=== PATIENT | male | born 1970 | race African-American/Black ===

== ENCOUNTER 2018-04-16 19:40 | Emergency (ER) | payer MEDICAID ==
[~2018-04-16] VITALS: Ht 165.1 cm; Wt 61.4 kg
[~2018-04-16 19:40] MED LIST: QUET200T PO
[2018-04-16 20:08] LABS: BASOPHILS % (AUTO) 0.4 % (0.0-2.0); EOSINOPHILS % (AUTO) 1.1 % (1.0-6.0); HEMATOCRIT 38.5 % (41-53); HEMOGLOBIN 12.9 g/dL (13.5-17.5); LYMPHOCYTES # (AUTO) 1.9 K/uL (1.0-4.8); LYMPHOCYTES % (AUTO) 40.8 % (22.0-44.0); MEAN CORPUSCULAR HEMOGLOBIN 28.8 pg (26.0-34.0); MEAN CORPUSCULAR HGB CONC 33.5 G/dL (31.0-37.0); MEAN CORPUSCULAR VOLUME 86 fL (80-100); MONOCYTES # (AUTO) 0.3 K/uL (0.1-1.0); MONOCYTES % (AUTO) 7.2 % (2.0-9.0); NEUTROPHILS # (AUTO) 2.4 K/uL (1.8-7.7); NEUTROPHILS % (AUTO) 50.5 % (40.0-70.0); PLATELET COUNT (AUTO) 282 K/uL (150-450); RED BLOOD CELL COUNT(AUTO) 4.47 MIL/uL (4.50-5.90); RED CELL DISTRIBUTION WIDTH 13.8 % (11.5-14.5)
[2018-04-16 20:16] LABS: ANION GAP 5 mmol/L (8-16); CALCIUM, TOTAL 9.2 mg/dL (8.8-10.5); CARBON DIOXIDE 34 mmol/L (22-29); CHLORIDE 105 mmol/L (98-107); CREATININE 0.64 mg/dL (0.60-1.30); GLOMERULAR FILTR. RATE CALC > 60 mL/min (>60); GLUCOSE,RANDOM 101 mg/dL (70-110); POTASSIUM 3.8 mmol/L (3.5-5.1); SODIUM SERUM 144 mmol/L (136-145); UREA NITROGEN, BLOOD 20 mg/dL (7-18)
[2018-04-16 20:22] LABS: ALANINE AMINOTRANSFERASE 31 U/L (12-78); ALBUMIN 3.7 g/dL (3.4-5.0); ALKALINE PHOSPHATASE 101 U/L (46-116); ASPARTATE AMINOTRANSFERASE 25 U/L (15-37); BILIRUBIN,TOTAL 0.1 mg/dL (0.1-1.0); TOTAL PROTEIN, SERUM 7.9 g/dL (6.4-8.2)
[2018-04-16 20:56] LABS: AMPHET/METH SCREEN,URINE NEGATIVE (NEGATIVE); BARBITURATE SCREEN, URINE NEGATIVE (NEGATIVE); BENZODIAZEPINES SCREEN,URINE NEGATIVE (NEGATIVE); CANNABINOID SCREEN,URINE NEGATIVE (NEGATIVE); COCAINE SCREEN,URINE NEGATIVE (NEGATIVE); METHADONE SCREEN, URINE NEGATIVE (NEGATIVE); OPIATE SCREEN,URINE NEGATIVE (NEGATIVE); PHENCYCLIDINE SCREEN,URINE NEGATIVE (NEGATIVE)
[2018-04-17] MEDS ORDERED: LORazepam 2 MG/ML VIAL IM ONE (00:30)
[2018-04-17] MEDS ORDERED: HALOPERIDOL LACTATE 5 MG/ML VIAL IM ONE (00:30)
[2018-04-17 06:45] VITALS: BP 121/73
[2018-04-17 08:51] LABS: GLUCOSE,POINT OF CARE 114 MG/DL (70-110)
== END 2018-04-17 07:00 | disposition left against medical advice (07) ==
LOC: EMS 19:43
DX: F20.0 Paranoid schizophrenia (principal); F15.10 Other stimulant abuse, uncomplicated; F32.9 Major depressive disorder, single episode, unspecified; F17.210 Nicotine dependence, cigarettes, uncomplicated; F12.90 Cannabis use, unspecified, uncomplicated; F19.90 Other psychoactive substance use, unspecified, uncomplicated; Z59.0 Homelessness; Z88.8 Allergy status to other drugs, medicaments and biological substances
CPT/HCPCS: 36415; 80053; 80307; 82962; 85025; 96372; 99284; 99406; G0480; J2060

== ENCOUNTER 2018-08-07 12:51 | Inpatient (IN) | payer MEDICAID, OTHER ==
[~2018-08-07] VITALS: Ht 165.1 cm; Wt 71.8 kg
[2018-08-07] MEDS ORDERED: OLAN10TA3 PO (13:25)
[2018-08-07 13:46] LABS: BASOPHILS % (AUTO) 0.3 % (0.0-2.0); HEMATOCRIT 38.5 % (41-53); HEMOGLOBIN 12.8 g/dL (13.5-17.5); LYMPHOCYTES # (AUTO) 1.4 K/uL (1.0-4.8); LYMPHOCYTES % (AUTO) 42.6 % (22.0-44.0); MEAN CORPUSCULAR HEMOGLOBIN 28.6 pg (26.0-34.0); MEAN CORPUSCULAR HGB CONC 33.3 G/dL (31.0-37.0); MEAN CORPUSCULAR VOLUME 86 fL (80-100); MONOCYTES # (AUTO) 0.3 K/uL (0.1-1.0); MONOCYTES % (AUTO) 8.9 % (2.0-9.0); NEUTROPHILS # (AUTO) 1.5 K/uL (1.8-7.7); NEUTROPHILS % (AUTO) 46.2 % (40.0-70.0); PLATELET COUNT (AUTO) 243 K/uL (150-450); RED BLOOD CELL COUNT(AUTO) 4.47 MIL/uL (4.50-5.90)
[2018-08-07 13:55] LABS: ANION GAP 7 mmol/L (8-16); CALCIUM, TOTAL 8.7 mg/dL (8.8-10.5); CARBON DIOXIDE 29 mmol/L (22-29); CHLORIDE 108 mmol/L (98-107); CREATININE 0.99 mg/dL (0.60-1.30); GLOMERULAR FILTR. RATE CALC > 60 mL/min (>60); GLUCOSE,RANDOM 138 mg/dL (70-110); POTASSIUM 4.1 mmol/L (3.5-5.1); SODIUM SERUM 144 mmol/L (136-145); UREA NITROGEN, BLOOD 17 mg/dL (7-18)
[2018-08-07 14:01] LABS: ALANINE AMINOTRANSFERASE 24 U/L (12-78); ALBUMIN 3.6 g/dL (3.4-5.0); ALKALINE PHOSPHATASE 102 U/L (46-116); ASPARTATE AMINOTRANSFERASE 19 U/L (15-37); BILIRUBIN,TOTAL 0.3 mg/dL (0.1-1.0); TOTAL PROTEIN, SERUM 7.7 g/dL (6.4-8.2)
[2018-08-07] MEDS ORDERED: ZOLPIDEM TARTRATE 10 MG TABLET PO PRN (15:00)
[2018-08-07] MEDS: LORazepam 2 MG TABLET PO PRN (17:13)
[2018-08-07 17:32] VITALS: BP 128/75
[2018-08-07] MEDS: OLANZapine 7.5 MG TABLET PO SCH (20:22)
[2018-08-08 06:36] LABS: CHOL/HDL RATIO 2.9 (4.2-7.3); FREE T4 (FREE THYROXINE) 0.95 ng/dL (0.76-1.46); THYROID STIMULATING HORMONE 0.48 uIU/mL (0.36-3.74)
[2018-08-08 08:00] VITALS: BP 137/66
[2018-08-08] MEDS ORDERED: CloNIDine HCL 0.1 MG TABLET PO PRN (10:00)
[2018-08-08] MEDS ORDERED: IBUPROFEN 600 MG TABLET PO PRN (10:00)
[2018-08-08] MEDS ORDERED: PETROLATUM,WHITE 28 GM JELLY TP PRN (10:00)
[2018-08-08] MEDS ORDERED: BACITRACIN 28.4 GM OINTMENT TP PRN (10:00)
[2018-08-08] MEDS ORDERED: ONDANSETRON HCL 4 MG TABLET PO PRN (10:00)
[2018-08-08] MEDS ORDERED: MAG HYDROX/AL HYDROX/SIMETH ES 30 ML SUSPENSION UDCUP PO PRN (10:00)
[2018-08-08] MEDS ORDERED: MAGNESIUM HYDROXIDE SUSPENSION 30 ML UDCUP PO PRN (10:00)
[2018-08-08] MEDS ORDERED: ACETAMINOPHEN 325 MG TABLET PO PRN (10:00)
[2018-08-08] MEDS ORDERED: LOPERAMIDE HCL 2 MG CAPSULE PO PRN (10:00)
[2018-08-08] MEDS ORDERED: BENZOCAINE/MENTHOL LOZENGE MM PRN (10:00)
[2018-08-08] MEDS ORDERED: ALBUTEROL SULFATE HFA 90 MCG/PUFF 8 GM INHALER IH PRN (10:00)
[2018-08-08] MEDS: OLANZapine 7.5 MG TABLET PO SCH (20:33)
[2018-08-09] MEDS: DOCUSATE SODIUM 100 MG CAPSULE PO SCH (07:46)
[2018-08-09] MEDS: OMEPRAZOLE 20 MG CAPSULE PO SCH (07:46)
[2018-08-09] MEDS: OLANZapine 5 MG RAPDIS TABLET PO PRN (09:32)
[2018-08-09] MEDS: LORazepam 2 MG TABLET PO PRN (09:32)
[2018-08-09 09:42] VITALS: BP 133/60
[2018-08-09 17:23] VITALS: BP 106/58
[2018-08-09] MEDS: OLANZapine 7.5 MG TABLET PO SCH (20:04)
[2018-08-10 08:02] VITALS: BP 94/60
[2018-08-10] MEDS: OMEPRAZOLE 20 MG CAPSULE PO SCH (09:42)
[2018-08-10] MEDS: DOCUSATE SODIUM 100 MG CAPSULE PO SCH (09:42)
[2018-08-10 17:05] VITALS: BP 113/59
[2018-08-10] MEDS: OLANZapine 7.5 MG TABLET PO SCH (20:16)
[2018-08-11] MEDS: OMEPRAZOLE 20 MG CAPSULE PO SCH (08:54)
[2018-08-11] MEDS: DOCUSATE SODIUM 100 MG CAPSULE PO SCH (08:54)
[2018-08-11 10:04] VITALS: BP 108/52
[2018-08-11] MEDS: OLANZapine 5 MG RAPDIS TABLET PO PRN (16:45)
[2018-08-11] MEDS: LORazepam 2 MG TABLET PO PRN (16:45)
[2018-08-11 17:14] VITALS: BP 119/72
[2018-08-11] MEDS: OLANZapine 7.5 MG TABLET PO SCH (20:34)
[2018-08-12 08:00] VITALS: BP 107/59
[2018-08-12] MEDS: OMEPRAZOLE 20 MG CAPSULE PO SCH (08:45)
[2018-08-12] MEDS: DOCUSATE SODIUM 100 MG CAPSULE PO SCH (08:45)
[2018-08-12] MEDS: LORazepam 2 MG TABLET PO PRN (15:45)
[2018-08-12 16:30] VITALS: BP 112/78
[2018-08-12] MEDS: OLANZapine 7.5 MG TABLET PO SCH (20:22)
[2018-08-12] MEDS ORDERED: DEXTROSE 50%-WATER 25 GM/50 ML SYRINGE IVP PRN (22:00)
[2018-08-13] MEDS: MetFORMIN HCL 500 MG TABLET PO SCH ×2 (06:35→16:17)
[2018-08-13] MEDS: INSULIN LISPRO 100 UNITS/ML SQ PRN ×4 (06:38→21:30)
[2018-08-13 06:44] LABS: GLUCOMETER DEV NAME(LOC) 3E.C; GLUCOSE,POINT OF CARE 216 MG/DL (70-110)
[2018-08-13 08:00] VITALS: BP 108/69
[2018-08-13] MEDS: DOCUSATE SODIUM 100 MG CAPSULE PO SCH (08:13)
[2018-08-13] MEDS: LORazepam 2 MG TABLET PO PRN ×2 (08:13→16:17)
[2018-08-13] MEDS: OMEPRAZOLE 20 MG CAPSULE PO SCH (08:13)
[2018-08-13 11:40] LABS: GLUCOMETER DEV NAME(LOC) 3E.C; GLUCOSE,POINT OF CARE 267 MG/DL (70-110)
[2018-08-13 16:24] LABS: GLUCOMETER DEV NAME(LOC) 3E.C; GLUCOSE,POINT OF CARE 238 MG/DL (70-110)
[2018-08-13 17:49] VITALS: BP 126/74
[2018-08-13] MEDS: OLANZapine 7.5 MG TABLET PO SCH (20:34)
[2018-08-13 20:54] LABS: GLUCOMETER DEV NAME(LOC) 3E.C; GLUCOSE,POINT OF CARE 253 MG/DL (70-110)
[2018-08-14 06:19] LABS: GLUCOMETER DEV NAME(LOC) 3E.C; GLUCOSE,POINT OF CARE 182 MG/DL (70-110)
[2018-08-14] MEDS: MetFORMIN HCL 500 MG TABLET PO SCH ×2 (07:09→16:32)
[2018-08-14] MEDS: INSULIN LISPRO 100 UNITS/ML SQ PRN ×3 (07:11→21:30)
[2018-08-14 08:00] VITALS: BP 138/71
[2018-08-14] MEDS: DOCUSATE SODIUM 100 MG CAPSULE PO SCH (10:47)
[2018-08-14] MEDS: OMEPRAZOLE 20 MG CAPSULE PO SCH (10:47)
[2018-08-14 11:50] LABS: GLUCOMETER DEV NAME(LOC) 3E.C; GLUCOSE,POINT OF CARE 195 MG/DL (70-110)
[2018-08-14] MEDS: LORazepam 2 MG TABLET PO PRN (16:32)
[2018-08-14 16:44] LABS: GLUCOMETER DEV NAME(LOC) 3E.C; GLUCOSE,POINT OF CARE 221 MG/DL (70-110)
[2018-08-14 16:52] VITALS: BP 129/78
[2018-08-14] MEDS: OLANZapine 7.5 MG TABLET PO SCH (20:31)
[2018-08-14 20:58] LABS: GLUCOMETER DEV NAME(LOC) 3E.C; GLUCOSE,POINT OF CARE 187 MG/DL (70-110)
[2018-08-15 06:15] LABS: GLUCOMETER DEV NAME(LOC) 3E.C; GLUCOSE,POINT OF CARE 203 MG/DL (70-110)
[2018-08-15] MEDS: MetFORMIN HCL 500 MG TABLET PO SCH ×2 (07:02→16:33)
[2018-08-15] MEDS: INSULIN LISPRO 100 UNITS/ML SQ PRN ×4 (07:06→20:41)
[2018-08-15 08:15] VITALS: BP 117/68
[2018-08-15] MEDS: OMEPRAZOLE 20 MG CAPSULE PO SCH (09:34)
[2018-08-15] MEDS: DOCUSATE SODIUM 100 MG CAPSULE PO SCH (09:34)
[2018-08-15 11:00] LABS: GLUCOMETER DEV NAME(LOC) 3E.C; GLUCOSE,POINT OF CARE 230 MG/DL (70-110)
[2018-08-15 16:06] VITALS: BP 126/70
[2018-08-15 16:44] LABS: GLUCOMETER DEV NAME(LOC) 3E.C; GLUCOSE,POINT OF CARE 152 MG/DL (70-110)
[2018-08-15] MEDS: OLANZapine 7.5 MG TABLET PO SCH (20:33)
[2018-08-15 20:44] LABS: GLUCOMETER DEV NAME(LOC) 3E.C; GLUCOSE,POINT OF CARE 211 MG/DL (70-110)
[2018-08-16 06:19] LABS: GLUCOMETER DEV NAME(LOC) 3E.C; GLUCOSE,POINT OF CARE 247 MG/DL (70-110)
[2018-08-16] MEDS: MetFORMIN HCL 500 MG TABLET PO SCH ×2 (06:51→17:16)
[2018-08-16] MEDS: INSULIN LISPRO 100 UNITS/ML SQ PRN ×3 (06:52→17:36)
[2018-08-16 08:00] VITALS: BP 116/76
[2018-08-16] MEDS: DOCUSATE SODIUM 100 MG CAPSULE PO SCH (08:53)
[2018-08-16] MEDS: OMEPRAZOLE 20 MG CAPSULE PO SCH (08:53)
[2018-08-16 11:44] LABS: GLUCOMETER DEV NAME(LOC) 3E.C; GLUCOSE,POINT OF CARE 239 MG/DL (70-110)
[2018-08-16] MEDS ORDERED: OLAN7.5T2 PO (13:45)
[2018-08-16] MEDS ORDERED: DSS100 PO (13:51)
[2018-08-16] MEDS ORDERED: METF-960 PO (13:51)
[2018-08-16] MEDS ORDERED: OMEP20 PO (13:51)
[2018-08-16 17:39] LABS: GLUCOMETER DEV NAME(LOC) 3E.C; GLUCOSE,POINT OF CARE 242 MG/DL (70-110)
== END 2018-08-16 19:00 | disposition home or self-care (01) | DRG 750 ==
LOC: EMS 12:52 → 3EC 16:20
PROVIDERS: ADMIT Psychiatry & Neurology Psychiatry; ATTEND Psychiatry & Neurology Psychiatry
DX: F25.9 Schizoaffective disorder, unspecified (principal); R45.851 Suicidal ideations; Z59.0 Homelessness; D64.9 Anemia, unspecified; E78.00 Pure hypercholesterolemia, unspecified; F32.9 Major depressive disorder, single episode, unspecified; G47.00 Insomnia, unspecified; K59.00 Constipation, unspecified; F12.90 Cannabis use, unspecified, uncomplicated; F17.210 Nicotine dependence, cigarettes, uncomplicated
CPT/HCPCS: 83036; 84439; 84443; G0480

== ENCOUNTER 2018-11-20 19:00 | Inpatient (IN) | payer MEDICAID ==
[~2018-11-20] VITALS: Ht 165.1 cm; Wt 77.6 kg
[~2018-11-20 19:00] MED LIST changes: +DSS100 PO; +METF-960 PO; +OLAN7.5T2 PO; +OMEP20 PO; -QUET200T PO
[2018-11-20] MEDS ORDERED: ARIP10TA8 PO (19:43)
[2018-11-20] MEDS ORDERED: SIMV-261 PO (19:43)
[2018-11-20] MEDS ORDERED: LISI-660 PO (19:43)
[2018-11-20] MEDS ORDERED: SERT50TA12 PO (19:43)
[2018-11-20] MEDS ORDERED: DEUT6TAB PO (19:43)
[2018-11-20] MEDS ORDERED: TRAZ-220 PO (19:43)
[2018-11-20 19:44] LABS: GLUCOSE,POINT OF CARE 96 MG/DL (70-110)
[2018-11-20 20:06] LABS: BASOPHILS % (AUTO) 0.2 % (0.0-2.0); EOSINOPHILS % (AUTO) 0.7 % (1.0-6.0); HEMATOCRIT 36.3 % (41-53); LYMPHOCYTES # (AUTO) 2.2 K/uL (1.0-4.8); LYMPHOCYTES % (AUTO) 51.9 % (22.0-44.0); MEAN CORPUSCULAR HEMOGLOBIN 28.7 pg (26.0-34.0); MEAN CORPUSCULAR HGB CONC 33.1 G/dL (31.0-37.0); MEAN CORPUSCULAR VOLUME 87 fL (80-100); MONOCYTES # (AUTO) 0.3 K/uL (0.1-1.0); MONOCYTES % (AUTO) 6.5 % (2.0-9.0); NEUTROPHILS # (AUTO) 1.8 K/uL (1.8-7.7); NEUTROPHILS % (AUTO) 40.7 % (40.0-70.0); PLATELET COUNT (AUTO) 186 K/uL (150-450); RED BLOOD CELL COUNT(AUTO) 4.19 MIL/uL (4.50-5.90); RED CELL DISTRIBUTION WIDTH 13.3 % (11.5-14.5)
[2018-11-20 20:21] LABS: ANION GAP 10 mmol/L (8-16); CALCIUM, TOTAL 9.3 mg/dL (8.8-10.5); CARBON DIOXIDE 26 mmol/L (22-29); CHLORIDE 104 mmol/L (98-107); CREATININE 0.83 mg/dL (0.60-1.30); GLOMERULAR FILTR. RATE CALC > 60 mL/min (>60); GLUCOSE,RANDOM 99 mg/dL (70-110); POTASSIUM 3.2 mmol/L (3.5-5.1); SODIUM SERUM 140 mmol/L (136-145); UREA NITROGEN, BLOOD 16 mg/dL (7-18)
[2018-11-20 20:28] LABS: ALANINE AMINOTRANSFERASE 17 U/L (12-78); ALBUMIN 4.4 g/dL (3.4-5.0); ALKALINE PHOSPHATASE 59 U/L (46-116); ASPARTATE AMINOTRANSFERASE 17 U/L (15-37); BILIRUBIN,TOTAL 0.6 mg/dL (0.1-1.0); TOTAL PROTEIN, SERUM 7.8 g/dL (6.4-8.2)
[2018-11-20 20:51] LABS: AMPHET/METH SCREEN,URINE NEGATIVE (NEGATIVE); BARBITURATE SCREEN, URINE NEGATIVE (NEGATIVE); BENZODIAZEPINES SCREEN,URINE NEGATIVE (NEGATIVE); CANNABINOID SCREEN,URINE NEGATIVE (NEGATIVE); COCAINE SCREEN,URINE NEGATIVE (NEGATIVE); METHADONE SCREEN, URINE NEGATIVE (NEGATIVE); OPIATE SCREEN,URINE NEGATIVE (NEGATIVE)
[2018-11-20 20:52] LABS: PHENCYCLIDINE SCREEN,URINE NEGATIVE (NEGATIVE)
[2018-11-20] MEDS ORDERED: OLANZapine 5 MG TABLET PO ONE (23:30)
[2018-11-21] MEDS ORDERED: POTASSIUM CHLORIDE 20 MEQ ER TABLET PO ONE (01:00)
[2018-11-21 03:13] LABS: CHOL/HDL RATIO 2.1 (4.2-7.3); CHOLESTEROL 144 mg/dL (131-200); HDL CHOLESTEROL 67 mg/dL (40-60); LDL CHOL (CALC.) 67 mg/dL (0-130); TRIGLYCERIDES 50 mg/dL (15-150)
[2018-11-21] MEDS ORDERED: PNEUMOCOCCAL VACCINE POLYVALENT 0.5 ML VIAL [PPSV23] IM ONE (04:30)
[2018-11-21 04:33] VITALS: BP 109/72
[2018-11-21 08:08] VITALS: BP 123/48
[2018-11-21 16:00] VITALS: BP 117/60
[2018-11-21] MEDS: FluPHENAZine HCL 5 MG TABLET PO PRN (17:21)
[2018-11-21] MEDS ORDERED: IBUPROFEN 600 MG TABLET PO PRN (22:30)
[2018-11-21] MEDS ORDERED: MAGNESIUM HYDROXIDE SUSPENSION 30 ML UDCUP PO PRN (22:30)
[2018-11-21] MEDS ORDERED: ALBUTEROL SULFATE HFA 90 MCG/PUFF 8 GM INHALER IH PRN (22:30)
[2018-11-21] MEDS ORDERED: LOPERAMIDE HCL 2 MG CAPSULE PO PRN (22:30)
[2018-11-21] MEDS ORDERED: MAG HYDROX/AL HYDROX/SIMETH ES 30 ML SUSPENSION UDCUP PO PRN (22:30)
[2018-11-21] MEDS ORDERED: DOCUSATE SODIUM 100 MG CAPSULE PO PRN (22:30)
[2018-11-21] MEDS ORDERED: ONDANSETRON HCL 4 MG TABLET PO PRN (22:30)
[2018-11-21] MEDS ORDERED: PETROLATUM,WHITE 28 GM JELLY TP PRN (22:30)
[2018-11-21] MEDS ORDERED: BENZOCAINE/MENTHOL LOZENGE MM PRN (22:30)
[2018-11-21] MEDS ORDERED: GLUCAGON,HUMAN RECOMBINANT 1 MG VIAL IM PRN (22:30)
[2018-11-21] MEDS ORDERED: CloNIDine HCL 0.1 MG TABLET PO PRN (22:30)
[2018-11-21] MEDS ORDERED: ACETAMINOPHEN 325 MG TABLET PO PRN (22:30)
[2018-11-21] MEDS ORDERED: BACITRACIN 28.4 GM OINTMENT TP PRN (22:30)
[2018-11-21] MEDS ORDERED: OMEPRAZOLE 20 MG CAPSULE PO PRN (22:30)
[2018-11-22 05:59] VITALS: BP 123/78
[2018-11-22 06:41] LABS: GLUCOMETER DEV NAME(LOC) BV3N.; GLUCOSE,POINT OF CARE 119 MG/DL (70-110)
[2018-11-22] MEDS: MetFORMIN HCL 500 MG TABLET PO SCH ×2 (07:03→17:04)
[2018-11-22 08:00] LABS: POTASSIUM 3.6 mmol/L (3.5-5.1)
[2018-11-22 08:02] VITALS: BP 103/58
[2018-11-22] MEDS: SERTRALINE HCL 50 MG TABLET PO SCH (08:21)
[2018-11-22] MEDS: LORazepam 2 MG TABLET PO PRN ×2 (08:21→16:46)
[2018-11-22] MEDS: LISINOPRIL 5 MG TABLET PO SCH (08:21)
[2018-11-22] MEDS: TraZODone HCL 100 MG TABLET PO SCH ×2 (08:22→20:32)
[2018-11-22] MEDS: ARIPiprazole 10 MG TABLET PO SCH (08:22)
[2018-11-22] MEDS ORDERED: TraZODone HCL 50 MG TABLET PO SCH (09:00)
[2018-11-22 14:16] LABS: GLUCOMETER DEV NAME(LOC) BV3N.; GLUCOSE,POINT OF CARE 118 MG/DL (70-110)
[2018-11-22 16:00] VITALS: BP 112/67
[2018-11-22 17:05] LABS: GLUCOMETER DEV NAME(LOC) BV3N.; GLUCOSE,POINT OF CARE 86 MG/DL (70-110)
[2018-11-22] MEDS: SIMVASTATIN 40 MG TABLET PO SCH (20:32)
[2018-11-22 20:50] LABS: GLUCOMETER DEV NAME(LOC) BV3N.; GLUCOSE,POINT OF CARE 109 MG/DL (70-110)
[2018-11-23 06:25] LABS: GLUCOMETER DEV NAME(LOC) BV3N.; GLUCOSE,POINT OF CARE 103 MG/DL (70-110)
[2018-11-23] MEDS: MetFORMIN HCL 500 MG TABLET PO SCH ×2 (06:31→16:38)
[2018-11-23 06:52] VITALS: BP 100/62
[2018-11-23 08:33] VITALS: BP 103/62
[2018-11-23] MEDS: SERTRALINE HCL 50 MG TABLET PO SCH (09:30)
[2018-11-23] MEDS: LORazepam 2 MG TABLET PO PRN ×2 (09:30→16:38)
[2018-11-23] MEDS: ARIPiprazole 10 MG TABLET PO SCH (09:30)
[2018-11-23] MEDS: FluPHENAZine HCL 5 MG TABLET PO PRN (09:30)
[2018-11-23] MEDS: LISINOPRIL 5 MG TABLET PO SCH (09:35)
[2018-11-23 12:31] LABS: GLUCOMETER DEV NAME(LOC) BV3N.; GLUCOSE,POINT OF CARE 72 MG/DL (70-110)
[2018-11-23] MEDS: INSULIN LISPRO 100 UNITS/ML SQ PRN ×2 (16:39→20:57)
[2018-11-23 16:42] VITALS: BP 109/67
[2018-11-23 17:06] LABS: GLUCOMETER DEV NAME(LOC) BV3N.; GLUCOSE,POINT OF CARE 149 MG/DL (70-110)
[2018-11-23] MEDS: NICOTINE 21 MG/24 HOUR PATCH TD SCH (18:30)
[2018-11-23] MEDS: SIMVASTATIN 40 MG TABLET PO SCH (20:55)
[2018-11-23] MEDS: TraZODone HCL 100 MG TABLET PO SCH (20:55)
[2018-11-23 21:16] LABS: GLUCOMETER DEV NAME(LOC) BV3N.; GLUCOSE,POINT OF CARE 141 MG/DL (70-110)
[2018-11-24] MEDS: FluPHENAZine HCL 5 MG TABLET PO PRN (04:57)
[2018-11-24] MEDS: LORazepam 2 MG TABLET PO PRN ×2 (04:57→08:59)
[2018-11-24 04:59] VITALS: BP 108/69
[2018-11-24 06:26] LABS: GLUCOMETER DEV NAME(LOC) BV3N.; GLUCOSE,POINT OF CARE 175 MG/DL (70-110)
[2018-11-24] MEDS: MetFORMIN HCL 500 MG TABLET PO SCH ×2 (06:26→16:38)
[2018-11-24] MEDS: INSULIN LISPRO 100 UNITS/ML SQ PRN (06:37)
[2018-11-24 08:57] VITALS: BP 115/65
[2018-11-24 08:58] VITALS: BP 115/65
[2018-11-24] MEDS: LISINOPRIL 5 MG TABLET PO SCH (08:58)
[2018-11-24] MEDS: ARIPiprazole 10 MG TABLET PO SCH (08:58)
[2018-11-24] MEDS: SERTRALINE HCL 50 MG TABLET PO SCH (08:58)
[2018-11-24] MEDS: NICOTINE 21 MG/24 HOUR PATCH TD SCH (08:59)
[2018-11-24 16:00] VITALS: BP 120/71
[2018-11-24] MEDS: SIMVASTATIN 40 MG TABLET PO SCH (20:45)
[2018-11-24] MEDS: TraZODone HCL 100 MG TABLET PO SCH (20:45)
[2018-11-25 06:25] VITALS: BP 110/62
[2018-11-25] MEDS: MetFORMIN HCL 500 MG TABLET PO SCH ×2 (06:56→16:28)
[2018-11-25 08:10] VITALS: BP 101/58
[2018-11-25] MEDS: NICOTINE 21 MG/24 HOUR PATCH TD SCH (09:08)
[2018-11-25] MEDS: ARIPiprazole 15 MG TABLET PO SCH (09:08)
[2018-11-25] MEDS: LISINOPRIL 5 MG TABLET PO SCH (09:09)
[2018-11-25] MEDS: SERTRALINE HCL 50 MG TABLET PO SCH (09:09)
[2018-11-25] MEDS: INSULIN LISPRO 100 UNITS/ML SQ PRN (11:49)
[2018-11-25 12:40] LABS: GLUCOMETER DEV NAME(LOC) BV3N.; GLUCOSE,POINT OF CARE 114 MG/DL (70-110)
[2018-11-25 12:40] LABS: GLUCOMETER DEV NAME(LOC) BV3N.; GLUCOSE,POINT OF CARE 69 MG/DL (70-110)
[2018-11-25 12:40] LABS: GLUCOMETER DEV NAME(LOC) BV3N.; GLUCOSE,POINT OF CARE 101 MG/DL (70-110)
[2018-11-25 12:40] LABS: GLUCOMETER DEV NAME(LOC) BV3N.; GLUCOSE,POINT OF CARE 94 MG/DL (70-110)
[2018-11-25 12:40] LABS: GLUCOMETER DEV NAME(LOC) BV3N.; GLUCOSE,POINT OF CARE 68 MG/DL (70-110)
[2018-11-25 13:00] LABS: GLUCOMETER DEV NAME(LOC) BV3N.; GLUCOSE,POINT OF CARE 98 MG/DL (70-110)
[2018-11-25 13:24] LABS: GLUCOMETER DEV NAME(LOC) BV3N.; GLUCOSE,POINT OF CARE 142 MG/DL (70-110)
[2018-11-25 16:00] VITALS: BP 132/86
[2018-11-25] MEDS: LORazepam 2 MG TABLET PO PRN ×2 (16:28→20:44)
[2018-11-25 17:01] LABS: GLUCOMETER DEV NAME(LOC) BV3N.; GLUCOSE,POINT OF CARE 128 MG/DL (70-110)
[2018-11-25] MEDS: TraZODone HCL 100 MG TABLET PO SCH (20:44)
[2018-11-25] MEDS: SIMVASTATIN 40 MG TABLET PO SCH (20:44)
[2018-11-25 21:11] LABS: GLUCOMETER DEV NAME(LOC) BV3N.; GLUCOSE,POINT OF CARE 105 MG/DL (70-110)
[2018-11-26 06:16] LABS: GLUCOMETER DEV NAME(LOC) BV3N.; GLUCOSE,POINT OF CARE 101 MG/DL (70-110)
[2018-11-26] MEDS: MetFORMIN HCL 500 MG TABLET PO SCH ×2 (06:18→16:38)
[2018-11-26 08:09] VITALS: BP 110/63
[2018-11-26] MEDS: NICOTINE 21 MG/24 HOUR PATCH TD SCH (09:00)
[2018-11-26] MEDS: SERTRALINE HCL 50 MG TABLET PO SCH (10:07)
[2018-11-26] MEDS: ARIPiprazole 15 MG TABLET PO SCH (10:07)
[2018-11-26] MEDS: LISINOPRIL 5 MG TABLET PO SCH (10:07)
[2018-11-26 11:57] LABS: GLUCOMETER DEV NAME(LOC) BV3N.; GLUCOSE,POINT OF CARE 106 MG/DL (70-110)
[2018-11-26 16:00] VITALS: BP 116/68
[2018-11-26] MEDS: LORazepam 2 MG TABLET PO PRN ×2 (16:38→20:40)
[2018-11-26 17:00] LABS: GLUCOMETER DEV NAME(LOC) BV3N.; GLUCOSE,POINT OF CARE 117 MG/DL (70-110)
[2018-11-26] MEDS: SIMVASTATIN 40 MG TABLET PO SCH (20:40)
[2018-11-26] MEDS: TraZODone HCL 100 MG TABLET PO SCH (20:40)
[2018-11-26 21:37] LABS: GLUCOMETER DEV NAME(LOC) BV3N.; GLUCOSE,POINT OF CARE 104 MG/DL (70-110)
[2018-11-27 06:35] LABS: GLUCOMETER DEV NAME(LOC) BV3N.; GLUCOSE,POINT OF CARE 100 MG/DL (70-110)
[2018-11-27] MEDS: MetFORMIN HCL 500 MG TABLET PO SCH ×2 (06:35→16:27)
[2018-11-27 08:28] VITALS: BP 96/60
[2018-11-27] MEDS: NICOTINE 21 MG/24 HOUR PATCH TD SCH (09:00)
[2018-11-27] MEDS: LISINOPRIL 5 MG TABLET PO SCH (09:03)
[2018-11-27] MEDS: ARIPiprazole 15 MG TABLET PO SCH (09:03)
[2018-11-27] MEDS: SERTRALINE HCL 50 MG TABLET PO SCH (09:03)
[2018-11-27 14:41] LABS: GLUCOMETER DEV NAME(LOC) BV3N.; GLUCOSE,POINT OF CARE 99 MG/DL (70-110)
[2018-11-27 16:00] VITALS: BP 113/65
[2018-11-27] MEDS: LORazepam 2 MG TABLET PO PRN (16:27)
[2018-11-27] MEDS: FluPHENAZine HCL 5 MG TABLET PO PRN (16:27)
[2018-11-27 17:00] LABS: GLUCOMETER DEV NAME(LOC) BV3N.; GLUCOSE,POINT OF CARE 100 MG/DL (70-110)
[2018-11-27] MEDS: SIMVASTATIN 40 MG TABLET PO SCH (20:39)
[2018-11-27] MEDS: TraZODone HCL 100 MG TABLET PO SCH (20:39)
[2018-11-27 21:23] LABS: GLUCOMETER DEV NAME(LOC) BV3N.; GLUCOSE,POINT OF CARE 109 MG/DL (70-110)
[2018-11-28 06:30] LABS: GLUCOMETER DEV NAME(LOC) BV3N.; GLUCOSE,POINT OF CARE 93 MG/DL (70-110)
[2018-11-28] MEDS: MetFORMIN HCL 500 MG TABLET PO SCH ×2 (07:14→17:06)
[2018-11-28 08:14] VITALS: BP 110/63
[2018-11-28] MEDS: ARIPiprazole 15 MG TABLET PO SCH (09:23)
[2018-11-28] MEDS: NICOTINE 21 MG/24 HOUR PATCH TD SCH (09:23)
[2018-11-28] MEDS: LISINOPRIL 5 MG TABLET PO SCH (09:24)
[2018-11-28] MEDS: SERTRALINE HCL 50 MG TABLET PO SCH (09:24)
[2018-11-28] MEDS: FluPHENAZine HCL 5 MG TABLET PO PRN ×2 (09:24→17:06)
[2018-11-28] MEDS: LORazepam 2 MG TABLET PO PRN ×2 (09:24→17:06)
[2018-11-28 11:35] LABS: GLUCOMETER DEV NAME(LOC) BV3N.; GLUCOSE,POINT OF CARE 96 MG/DL (70-110)
[2018-11-28 16:33] VITALS: BP 116/74
[2018-11-28 16:36] LABS: GLUCOMETER DEV NAME(LOC) BV3N.; GLUCOSE,POINT OF CARE 118 MG/DL (70-110)
[2018-11-28] MEDS: TraZODone HCL 100 MG TABLET PO SCH (20:46)
[2018-11-28] MEDS: ZOLPIDEM TARTRATE 10 MG TABLET PO PRN (20:46)
[2018-11-28] MEDS: SIMVASTATIN 40 MG TABLET PO SCH (20:46)
[2018-11-29 06:21] LABS: GLUCOMETER DEV NAME(LOC) BV3N.; GLUCOSE,POINT OF CARE 105 MG/DL (70-110)
[2018-11-29] MEDS: MetFORMIN HCL 500 MG TABLET PO SCH ×2 (06:38→16:33)
[2018-11-29] MEDS ORDERED: MULTIVITAMINS WITH IRON TABLET PO SCH (07:30)
[2018-11-29 08:13] VITALS: BP 104/61
[2018-11-29] MEDS: MULTIVITAMINS WITH IRON TABLET PO SCH ×2 (09:00→09:18)
[2018-11-29] MEDS: NICOTINE 21 MG/24 HOUR PATCH TD SCH (09:18)
[2018-11-29] MEDS: SERTRALINE HCL 50 MG TABLET PO SCH (09:18)
[2018-11-29] MEDS: LISINOPRIL 5 MG TABLET PO SCH (09:18)
[2018-11-29] MEDS: ARIPiprazole 15 MG TABLET PO SCH (09:18)
[2018-11-29] MEDS: LORazepam 2 MG TABLET PO PRN ×2 (09:19→16:33)
[2018-11-29 11:41] LABS: GLUCOMETER DEV NAME(LOC) BV3N.; GLUCOSE,POINT OF CARE 89 MG/DL (70-110)
[2018-11-29 16:33] VITALS: BP 101/90
[2018-11-29] MEDS: FluPHENAZine HCL 5 MG TABLET PO PRN (16:33)
[2018-11-29] MEDS: INSULIN LISPRO 100 UNITS/ML SQ PRN (16:39)
[2018-11-29 17:01] LABS: GLUCOMETER DEV NAME(LOC) BV3N.; GLUCOSE,POINT OF CARE 142 MG/DL (70-110)
[2018-11-29] MEDS: SIMVASTATIN 40 MG TABLET PO SCH (20:39)
[2018-11-29] MEDS: TraZODone HCL 100 MG TABLET PO SCH (20:39)
[2018-11-29 21:16] LABS: GLUCOMETER DEV NAME(LOC) BV3N.; GLUCOSE,POINT OF CARE 95 MG/DL (70-110)
[2018-11-30 02:30] VITALS: BP 130/78
[2018-11-30] MEDS: MetFORMIN HCL 500 MG TABLET PO SCH ×2 (06:24→16:17)
[2018-11-30 06:32] LABS: GLUCOMETER DEV NAME(LOC) BV3N.; GLUCOSE,POINT OF CARE 107 MG/DL (70-110)
[2018-11-30 08:14] VITALS: BP 108/68
[2018-11-30] MEDS: SERTRALINE HCL 50 MG TABLET PO SCH (09:16)
[2018-11-30] MEDS: LISINOPRIL 5 MG TABLET PO SCH (09:16)
[2018-11-30] MEDS: MULTIVITAMINS WITH IRON TABLET PO SCH (09:17)
[2018-11-30] MEDS: ARIPiprazole 15 MG TABLET PO SCH (09:17)
[2018-11-30] MEDS: NICOTINE 21 MG/24 HOUR PATCH TD SCH (10:36)
[2018-11-30 11:36] LABS: GLUCOMETER DEV NAME(LOC) BV3N.; GLUCOSE,POINT OF CARE 75 MG/DL (70-110)
[2018-11-30] MEDS: LORazepam 2 MG TABLET PO PRN (16:17)
[2018-11-30] MEDS: FluPHENAZine HCL 5 MG TABLET PO PRN (16:17)
[2018-11-30 16:38] VITALS: BP 107/62
[2018-11-30 17:26] LABS: GLUCOMETER DEV NAME(LOC) BV3N.; GLUCOSE,POINT OF CARE 130 MG/DL (70-110)
[2018-11-30] MEDS: TraZODone HCL 100 MG TABLET PO SCH (20:26)
[2018-11-30] MEDS: ZOLPIDEM TARTRATE 10 MG TABLET PO PRN (20:26)
[2018-11-30] MEDS: SIMVASTATIN 40 MG TABLET PO SCH (20:26)
[2018-11-30 21:03] LABS: GLUCOMETER DEV NAME(LOC) BV3N.; GLUCOSE,POINT OF CARE 119 MG/DL (70-110)
[2018-12-01 00:30] VITALS: BP 132/77
[2018-12-01] MEDS: LORazepam 2 MG TABLET PO PRN ×2 (00:59→16:52)
[2018-12-01] MEDS: FluPHENAZine HCL 5 MG TABLET PO PRN ×2 (00:59→16:52)
[2018-12-01] MEDS: MetFORMIN HCL 500 MG TABLET PO SCH ×2 (06:34→16:52)
[2018-12-01 06:37] LABS: GLUCOMETER DEV NAME(LOC) BV3N.; GLUCOSE,POINT OF CARE 111 MG/DL (70-110)
[2018-12-01 08:33] VITALS: BP 101/78
[2018-12-01 09:23] LABS: % IRON SATURATION 20.4 % (30-44)
[2018-12-01] MEDS: LISINOPRIL 5 MG TABLET PO SCH (09:33)
[2018-12-01] MEDS: MULTIVITAMINS WITH IRON TABLET PO SCH (09:33)
[2018-12-01] MEDS: ARIPiprazole 15 MG TABLET PO SCH (09:34)
[2018-12-01] MEDS: SERTRALINE HCL 50 MG TABLET PO SCH (09:35)
[2018-12-01] MEDS: NICOTINE 21 MG/24 HOUR PATCH TD SCH (09:44)
[2018-12-01 15:39] LABS: GLUCOMETER DEV NAME(LOC) BV3N.; GLUCOSE,POINT OF CARE 78 MG/DL (70-110)
[2018-12-01 16:00] VITALS: BP 108/64
[2018-12-01 16:47] LABS: GLUCOMETER DEV NAME(LOC) BV3N.; GLUCOSE,POINT OF CARE 97 MG/DL (70-110)
[2018-12-01] MEDS: TraZODone HCL 100 MG TABLET PO SCH (21:27)
[2018-12-01] MEDS: ZOLPIDEM TARTRATE 10 MG TABLET PO PRN (21:27)
[2018-12-01] MEDS: SIMVASTATIN 40 MG TABLET PO SCH (21:27)
[2018-12-02 04:42] VITALS: BP 123/78
[2018-12-02 06:35] LABS: GLUCOMETER DEV NAME(LOC) BV3N.; GLUCOSE,POINT OF CARE 113 MG/DL (70-110)
[2018-12-02] MEDS: MetFORMIN HCL 500 MG TABLET PO SCH (06:46)
[2018-12-02 08:36] VITALS: BP 122/73
[2018-12-02] MEDS: LISINOPRIL 5 MG TABLET PO SCH (09:17)
[2018-12-02] MEDS: MULTIVITAMINS WITH IRON TABLET PO SCH (09:18)
[2018-12-02] MEDS: SERTRALINE HCL 50 MG TABLET PO SCH (09:18)
[2018-12-02] MEDS: ARIPiprazole 15 MG TABLET PO SCH (09:18)
[2018-12-02] MEDS: NICOTINE 21 MG/24 HOUR PATCH TD SCH (09:36)
[2018-12-02 12:06] LABS: GLUCOMETER DEV NAME(LOC) BV3N.; GLUCOSE,POINT OF CARE 120 MG/DL (70-110)
== END 2018-12-02 15:00 | disposition home or self-care (01) | DRG 750 ==
LOC: EMS 19:05 → B3A 11-21 02:00
PROVIDERS: ADMIT Psychiatry & Neurology Psychiatry; ATTEND Psychiatry & Neurology Psychiatry
DX: F25.0 Schizoaffective disorder, bipolar type (principal); E11.9 Type 2 diabetes mellitus without complications; R45.851 Suicidal ideations; I10 Essential (primary) hypertension; E78.5 Hyperlipidemia, unspecified; E87.6 Hypokalemia; F41.9 Anxiety disorder, unspecified; F17.210 Nicotine dependence, cigarettes, uncomplicated; G47.00 Insomnia, unspecified; Z79.899 Other long term (current) drug therapy; Z88.8 Allergy status to other drugs, medicaments and biological substances
CPT/HCPCS: 83540; 83550; 84132; 84295; 90732; G0480

== ENCOUNTER 2019-03-17 06:24 | Inpatient (IN) | payer MEDICAID, OTHER ==
[~2019-03-17] VITALS: Ht 165.1 cm; Wt 70.3 kg
[~2019-03-17 06:24] MED LIST changes: +ARIP10TA8 PO; -DSS100 PO; +LISI-660 PO; -OLAN7.5T2 PO; -OMEP20 PO; +SERT50TA12 PO; +SIMV-261 PO; +TRAZ-257 PO
[2019-03-17 06:46] LABS: GLUCOSE,POINT OF CARE 125 MG/DL (70-110)
[2019-03-17 06:54] LABS: BASOPHILS % (AUTO) 0.4 % (0.0-2.0); EOSINOPHILS % (AUTO) 1.3 % (1.0-6.0); HEMATOCRIT 39.8 % (41-53); HEMOGLOBIN 13.5 g/dL (13.5-17.5); LYMPHOCYTES # (AUTO) 1.3 K/uL (1.0-4.8); MEAN CORPUSCULAR HEMOGLOBIN 29.6 pg (26.0-34.0); MEAN CORPUSCULAR HGB CONC 33.9 G/dL (31.0-37.0); MEAN CORPUSCULAR VOLUME 87 fL (80-100); MONOCYTES # (AUTO) 0.3 K/uL (0.1-1.0); MONOCYTES % (AUTO) 7.3 % (2.0-9.0); NEUTROPHILS # (AUTO) 1.9 K/uL (1.8-7.7); PLATELET COUNT (AUTO) 225 K/uL (150-450); RED BLOOD CELL COUNT(AUTO) 4.56 MIL/uL (4.50-5.90); RED CELL DISTRIBUTION WIDTH 13.8 % (11.5-14.5)
[2019-03-17 06:59] LABS: ANION GAP 8 mmol/L (8-16); CALCIUM, TOTAL 8.9 mg/dL (8.8-10.5); CARBON DIOXIDE 30 mmol/L (22-29); CHLORIDE 102 mmol/L (98-107); CREATININE 0.91 mg/dL (0.60-1.30); GLOMERULAR FILTR. RATE CALC > 60 mL/min (>60); GLUCOSE,RANDOM 138 mg/dL (70-110); POTASSIUM 3.2 mmol/L (3.5-5.1); SODIUM SERUM 140 mmol/L (136-145); UREA NITROGEN, BLOOD 19 mg/dL (7-18)
[2019-03-17 07:06] LABS: ALANINE AMINOTRANSFERASE 26 U/L (12-78); ALBUMIN 3.9 g/dL (3.4-5.0); ALKALINE PHOSPHATASE 75 U/L (46-116); ASPARTATE AMINOTRANSFERASE 27 U/L (15-37); BILIRUBIN,TOTAL 0.5 mg/dL (0.1-1.0); LIPASE 118 U/L (73-393); TOTAL PROTEIN, SERUM 8.1 g/dL (6.4-8.2)
[2019-03-17] MEDS ORDERED: LORazepam 2 MG TABLET PO PRN (08:45)
[2019-03-17] MEDS ORDERED: ZOLPIDEM TARTRATE 10 MG TABLET PO PRN (08:45)
[2019-03-17] MEDS ORDERED: QUEtiapine FUMARATE 100 MG TABLET PO PRN (08:45)
[2019-03-17] MEDS ORDERED: ARIPiprazole 15 MG TABLET PO SCH (09:00)
[2019-03-17 09:15] LABS: APPEARANCE,URINE CLEAR (CLEAR); BILIRUBIN,URINE PRELIM. POSITIVE (NEGATIVE); GLUCOSE, URINE (UA) NEGATIVE (NEGATIVE); KETONES,URINE TRACE mg/dL (NEGATIVE); LEUKOCYTE ESTERASE ,URINE NEGATIVE (NEGATIVE); NITRATE,URINE NEGATIVE (NEGATIVE); OCCULT BLOOD,URINE NEGATIVE (NEGATIVE)
[2019-03-17 09:16] LABS: PROTEIN,URINE NEGATIVE (NEGATIVE)
[2019-03-17 09:24] LABS: AMPHET/METH SCREEN,URINE POSITIVE (NEGATIVE); BARBITURATE SCREEN, URINE NEGATIVE (NEGATIVE); BENZODIAZEPINES SCREEN,URINE NEGATIVE (NEGATIVE); CANNABINOID SCREEN,URINE NEGATIVE (NEGATIVE); COCAINE SCREEN,URINE POSITIVE (NEGATIVE); METHADONE SCREEN, URINE NEGATIVE (NEGATIVE); OPIATE SCREEN,URINE NEGATIVE (NEGATIVE)
[2019-03-17 09:26] LABS: PHENCYCLIDINE SCREEN,URINE NEGATIVE (NEGATIVE)
[2019-03-17] MEDS: SERTRALINE HCL 50 MG TABLET PO SCH (10:07)
[2019-03-17] MEDS ORDERED: PROMETHAZINE HCL 25 MG TABLET PO PRN (13:15)
[2019-03-17] MEDS ORDERED: TUBERCULIN, PURIFIED PROTEIN DERIVATIVE 5 TU/0.1 ML SYRINGE ID ONE (13:15)
[2019-03-17] MEDS ORDERED: MAG HYDROX/AL HYDROX/SIMETH ES 30 ML SUSPENSION UDCUP PO PRN (13:15)
[2019-03-17] MEDS ORDERED: MAGNESIUM HYDROXIDE SUSPENSION 30 ML UDCUP PO PRN (13:15)
[2019-03-17] MEDS ORDERED: LOPERAMIDE HCL 2 MG CAPSULE PO PRN (13:15)
[2019-03-17] MEDS ORDERED: GuaiFENesin/D-METHORPHAN [SUGAR-FREE] 200-20MG/10 ML SYRUP UDCUP PO PRN (13:15)
[2019-03-17] MEDS ORDERED: HydrOXYzine PAMOATE 50 MG CAPSULE PO PRN (13:15)
[2019-03-17] MEDS ORDERED: ACETAMINOPHEN 325 MG TABLET PO PRN (13:15)
[2019-03-17] MEDS ORDERED: PALIPERIDONE 1.5 MG ER TABLET PO PRN (15:30)
[2019-03-17] MEDS ORDERED: PALIPERIDONE PALMITATE 234 MG/1.5 ML SYRINGE IM ONE (15:30)
[2019-03-17 16:16] VITALS: BP 118/82
[2019-03-17] MEDS: THIAMINE HCL 100 MG TABLET PO SCH (16:18)
[2019-03-17] MEDS ORDERED: POTASSIUM CHLORIDE 20 MEQ ER TABLET PO ONE (20:15)
[2019-03-17] MEDS: TraZODone HCL 100 MG TABLET PO SCH ×2 (20:26→20:43)
[2019-03-17] MEDS: PALIPERIDONE 3 MG ER TABLET PO SCH (20:44)
[2019-03-18 00:26] VITALS: BP 119/72
[2019-03-18] MEDS ORDERED: PNEUMOCOCCAL VACCINE POLYVALENT 0.5 ML VIAL [PPSV23] IM ONE (04:00)
[2019-03-18] MEDS ORDERED: INFLUENZA VIRUS VACCINE QVS 2019-20 (3YR+)/PF 60 MCG/0.5 ML SYRINGE IM ONE (04:00)
[2019-03-18 08:10] LABS: CHOL/HDL RATIO 2.1 (4.2-7.3); FREE T4 (FREE THYROXINE) 1.06 ng/dL (0.76-1.46); POTASSIUM 4.4 mmol/L (3.5-5.1); THYROID STIMULATING HORMONE 0.41 uIU/mL (0.36-3.74)
[2019-03-18 08:16] VITALS: BP 104/63
[2019-03-18 08:24] LABS: HEMOGLOBIN A1C 6.2 % (4.5-6.2)
[2019-03-18] MEDS: MULTIVITAMINS WITH MINERALS, THERAPEUTIC TABLET PO SCH (08:24)
[2019-03-18] MEDS: THIAMINE HCL 100 MG TABLET PO SCH ×2 (08:24→16:59)
[2019-03-18] MEDS: SERTRALINE HCL 50 MG TABLET PO SCH (08:25)
[2019-03-18] MEDS: FOLIC ACID 1 MG TABLET PO SCH (08:25)
[2019-03-18] MEDS ORDERED: INSULIN LISPRO 100 UNITS/ML SQ PRN (09:15)
[2019-03-18] MEDS ORDERED: PETROLATUM,WHITE 28 GM JELLY TP PRN (09:15)
[2019-03-18] MEDS ORDERED: BENZOCAINE/MENTHOL LOZENGE MM PRN (09:15)
[2019-03-18] MEDS ORDERED: ONDANSETRON HCL 4 MG TABLET PO PRN (09:15)
[2019-03-18] MEDS ORDERED: IBUPROFEN 600 MG TABLET PO PRN (09:15)
[2019-03-18] MEDS ORDERED: GLUCAGON,HUMAN RECOMBINANT 1 MG VIAL IM PRN (09:15)
[2019-03-18] MEDS ORDERED: ALBUTEROL SULFATE HFA 90 MCG/PUFF 8 GM INHALER IH PRN (09:15)
[2019-03-18] MEDS ORDERED: BACITRACIN 28.4 GM OINTMENT TP PRN (09:15)
[2019-03-18] MEDS ORDERED: CloNIDine HCL 0.1 MG TABLET PO PRN (09:15)
[2019-03-18] MEDS: LISINOPRIL 5 MG TABLET PO SCH (09:40)
[2019-03-18 16:38] VITALS: BP 104/69
[2019-03-18] MEDS: MetFORMIN HCL 500 MG TABLET PO SCH (16:59)
[2019-03-18 17:10] LABS: GLUCOMETER DEV NAME(LOC) BV2S.; GLUCOSE,POINT OF CARE 117 MG/DL (70-110)
[2019-03-18] MEDS: PALIPERIDONE 3 MG ER TABLET PO SCH (20:35)
[2019-03-18] MEDS: SIMVASTATIN 40 MG TABLET PO SCH (20:35)
[2019-03-18] MEDS: TraZODone HCL 100 MG TABLET PO SCH (20:35)
[2019-03-19 00:26] VITALS: BP 107/62
[2019-03-19 06:40] LABS: GLUCOMETER DEV NAME(LOC) BV2S.; GLUCOSE,POINT OF CARE 94 MG/DL (70-110)
[2019-03-19] MEDS: MetFORMIN HCL 500 MG TABLET PO SCH ×2 (06:52→16:28)
[2019-03-19 08:45] VITALS: BP 108/62
[2019-03-19] MEDS: NALTREXONE HCL 50 MG TABLET PO SCH (08:45)
[2019-03-19] MEDS: THIAMINE HCL 100 MG TABLET PO SCH ×2 (08:45→16:29)
[2019-03-19] MEDS: SERTRALINE HCL 50 MG TABLET PO SCH (08:45)
[2019-03-19] MEDS: LISINOPRIL 5 MG TABLET PO SCH (08:45)
[2019-03-19] MEDS: MULTIVITAMINS WITH MINERALS, THERAPEUTIC TABLET PO SCH (08:45)
[2019-03-19] MEDS: FOLIC ACID 1 MG TABLET PO SCH (08:45)
[2019-03-19 11:09] LABS: GLUCOMETER DEV NAME(LOC) BV2S.; GLUCOSE,POINT OF CARE 75 MG/DL (70-110)
[2019-03-19 16:10] VITALS: BP 111/87
[2019-03-19 17:02] LABS: GLUCOMETER DEV NAME(LOC) BV2S.; GLUCOSE,POINT OF CARE 138 MG/DL (70-110)
[2019-03-19] MEDS: TraZODone HCL 100 MG TABLET PO SCH (20:24)
[2019-03-19] MEDS: SIMVASTATIN 40 MG TABLET PO SCH (20:24)
[2019-03-19 20:35] LABS: GLUCOMETER DEV NAME(LOC) BV2S.; GLUCOSE,POINT OF CARE 107 MG/DL (70-110)
[2019-03-20 04:52] VITALS: BP 108/65
[2019-03-20 06:23] LABS: GLUCOMETER DEV NAME(LOC) BV2S.; GLUCOSE,POINT OF CARE 105 MG/DL (70-110)
[2019-03-20] MEDS: MetFORMIN HCL 500 MG TABLET PO SCH ×2 (07:05→16:38)
[2019-03-20 08:48] VITALS: BP 125/73
[2019-03-20] MEDS: LISINOPRIL 5 MG TABLET PO SCH (08:50)
[2019-03-20] MEDS: MULTIVITAMINS WITH MINERALS, THERAPEUTIC TABLET PO SCH (08:50)
[2019-03-20] MEDS: NALTREXONE HCL 50 MG TABLET PO SCH (08:51)
[2019-03-20] MEDS: FOLIC ACID 1 MG TABLET PO SCH (08:51)
[2019-03-20] MEDS: SERTRALINE HCL 50 MG TABLET PO SCH (08:51)
[2019-03-20] MEDS: THIAMINE HCL 100 MG TABLET PO SCH ×2 (08:51→16:38)
[2019-03-20 11:14] LABS: GLUCOMETER DEV NAME(LOC) BV2S.; GLUCOSE,POINT OF CARE 122 MG/DL (70-110)
[2019-03-20 15:30] VITALS: BP 107/62
[2019-03-20 16:00] VITALS: BP 134/77
[2019-03-20 16:48] LABS: GLUCOMETER DEV NAME(LOC) BV2S.; GLUCOSE,POINT OF CARE 91 MG/DL (70-110)
[2019-03-20] MEDS: TraZODone HCL 100 MG TABLET PO SCH (20:39)
[2019-03-20] MEDS: SIMVASTATIN 40 MG TABLET PO SCH (20:39)
[2019-03-20 20:50] LABS: GLUCOMETER DEV NAME(LOC) BV2S.; GLUCOSE,POINT OF CARE 95 MG/DL (70-110)
[2019-03-21 00:06] VITALS: BP 110/70
[2019-03-21 06:32] LABS: GLUCOMETER DEV NAME(LOC) BV2S.; GLUCOSE,POINT OF CARE 90 MG/DL (70-110)
[2019-03-21] MEDS: MetFORMIN HCL 500 MG TABLET PO SCH ×2 (07:01→16:33)
[2019-03-21 08:46] VITALS: BP 124/62
[2019-03-21] MEDS: FOLIC ACID 1 MG TABLET PO SCH (08:50)
[2019-03-21] MEDS: NALTREXONE HCL 50 MG TABLET PO SCH (08:50)
[2019-03-21] MEDS: LISINOPRIL 5 MG TABLET PO SCH (08:50)
[2019-03-21] MEDS: SERTRALINE HCL 50 MG TABLET PO SCH (08:50)
[2019-03-21] MEDS: THIAMINE HCL 100 MG TABLET PO SCH ×2 (08:50→16:32)
[2019-03-21] MEDS: MULTIVITAMINS WITH MINERALS, THERAPEUTIC TABLET PO SCH (08:50)
[2019-03-21] MEDS ORDERED: PALIPERIDONE PALMITATE 156 MG/ML SYRINGE IM ONE (09:00)
[2019-03-21 11:17] LABS: GLUCOMETER DEV NAME(LOC) BV2S.; GLUCOSE,POINT OF CARE 119 MG/DL (70-110)
[2019-03-21 15:50] LABS: GLUCOMETER DEV NAME(LOC) BV2S.; GLUCOSE,POINT OF CARE 119 MG/DL (70-110)
[2019-03-21 15:52] VITALS: BP 102/63
[2019-03-21 19:29] VITALS: BP 102/63
[2019-03-21] MEDS: TraZODone HCL 100 MG TABLET PO SCH (20:16)
[2019-03-21] MEDS: SIMVASTATIN 40 MG TABLET PO SCH (20:16)
[2019-03-21 22:12] LABS: GLUCOMETER DEV NAME(LOC) BV2S.; GLUCOSE,POINT OF CARE 90 MG/DL (70-110)
[2019-03-21 23:44] VITALS: BP 107/59
[2019-03-22] VITALS: BP 107/59
[2019-03-22 02:17] VITALS: BP 107/59
[2019-03-22] MEDS: MetFORMIN HCL 500 MG TABLET PO SCH ×2 (06:38→16:54)
[2019-03-22 06:50] LABS: GLUCOMETER DEV NAME(LOC) BV2S.; GLUCOSE,POINT OF CARE 101 MG/DL (70-110)
[2019-03-22 08:17] VITALS: BP_SYST 100; BP_SYST 114; BP_DIAS 66; BP_DIAS 67
[2019-03-22] MEDS: LISINOPRIL 5 MG TABLET PO SCH (08:49)
[2019-03-22] MEDS: MULTIVITAMINS WITH MINERALS, THERAPEUTIC TABLET PO SCH (08:49)
[2019-03-22] MEDS: NALTREXONE HCL 50 MG TABLET PO SCH (08:49)
[2019-03-22] MEDS: THIAMINE HCL 100 MG TABLET PO SCH ×2 (08:49→16:54)
[2019-03-22] MEDS: FOLIC ACID 1 MG TABLET PO SCH (08:49)
[2019-03-22] MEDS: SERTRALINE HCL 50 MG TABLET PO SCH (08:49)
[2019-03-22] MEDS ORDERED: PALIPERIDONE PALMITATE 156 MG/ML SYRINGE IM ONE (09:00)
[2019-03-22 11:12] LABS: GLUCOMETER DEV NAME(LOC) BV2S.; GLUCOSE,POINT OF CARE 103 MG/DL (70-110)
[2019-03-22 16:08] VITALS: BP 118/69
[2019-03-22 17:00] LABS: GLUCOMETER DEV NAME(LOC) BV2S.; GLUCOSE,POINT OF CARE 161 MG/DL (70-110)
[2019-03-22] MEDS: SIMVASTATIN 40 MG TABLET PO SCH (20:20)
[2019-03-22] MEDS: TraZODone HCL 100 MG TABLET PO SCH (20:20)
[2019-03-22 20:40] LABS: GLUCOMETER DEV NAME(LOC) BV2S.; GLUCOSE,POINT OF CARE 114 MG/DL (70-110)
[2019-03-23] MEDS: MetFORMIN HCL 500 MG TABLET PO SCH ×2 (06:31→16:08)
[2019-03-23 06:39] LABS: GLUCOMETER DEV NAME(LOC) BV2S.; GLUCOSE,POINT OF CARE 112 MG/DL (70-110)
[2019-03-23 07:00] VITALS: BP 120/73
[2019-03-23] MEDS: LISINOPRIL 5 MG TABLET PO SCH (08:22)
[2019-03-23] MEDS: SERTRALINE HCL 50 MG TABLET PO SCH (08:22)
[2019-03-23] MEDS: FOLIC ACID 1 MG TABLET PO SCH (08:22)
[2019-03-23] MEDS: NALTREXONE HCL 50 MG TABLET PO SCH (08:22)
[2019-03-23] MEDS: MULTIVITAMINS WITH MINERALS, THERAPEUTIC TABLET PO SCH (08:22)
[2019-03-23] MEDS: THIAMINE HCL 100 MG TABLET PO SCH ×2 (08:22→16:08)
[2019-03-23 08:50] VITALS: BP 109/61
[2019-03-23 11:08] LABS: GLUCOMETER DEV NAME(LOC) BV2S.; GLUCOSE,POINT OF CARE 72 MG/DL (70-110)
[2019-03-23 16:03] VITALS: BP 106/60
[2019-03-23 17:03] LABS: GLUCOMETER DEV NAME(LOC) BV2S.; GLUCOSE,POINT OF CARE 113 MG/DL (70-110)
[2019-03-23] MEDS: SIMVASTATIN 40 MG TABLET PO SCH (20:05)
[2019-03-23] MEDS: TraZODone HCL 100 MG TABLET PO SCH (20:05)
[2019-03-24 01:53] VITALS: BP 131/79
[2019-03-24 06:26] LABS: GLUCOMETER DEV NAME(LOC) BV2S.; GLUCOSE,POINT OF CARE 99 MG/DL (70-110)
[2019-03-24] MEDS: MetFORMIN HCL 500 MG TABLET PO SCH (06:31)
[2019-03-24] MEDS: THIAMINE HCL 100 MG TABLET PO SCH (08:35)
[2019-03-24] MEDS: SERTRALINE HCL 50 MG TABLET PO SCH (08:35)
[2019-03-24] MEDS: LISINOPRIL 5 MG TABLET PO SCH (08:35)
[2019-03-24] MEDS: FOLIC ACID 1 MG TABLET PO SCH (08:35)
[2019-03-24] MEDS: NALTREXONE HCL 50 MG TABLET PO SCH (08:36)
[2019-03-24] MEDS: MULTIVITAMINS WITH MINERALS, THERAPEUTIC TABLET PO SCH (08:36)
[2019-03-24] MEDS ORDERED: NALT50TA6 PO (10:41)
[2019-03-24 11:52] LABS: GLUCOMETER DEV NAME(LOC) BV2S.; GLUCOSE,POINT OF CARE 113 MG/DL (70-110)
== END 2019-03-24 13:22 | disposition home or self-care (01) | DRG 750 ==
LOC: EMS 06:27 → B2S 12:56
PROVIDERS: ADMIT Psychiatry & Neurology Psychiatry; ATTEND Psychiatry & Neurology Psychiatry
DX: F25.9 Schizoaffective disorder, unspecified (principal); E11.9 Type 2 diabetes mellitus without complications; R45.851 Suicidal ideations; E78.00 Pure hypercholesterolemia, unspecified; E78.5 Hyperlipidemia, unspecified; F17.210 Nicotine dependence, cigarettes, uncomplicated; I10 Essential (primary) hypertension; Z53.29 Procedure and treatment not carried out because of patient's decision for other reasons; Z91.14 Patient's other noncompliance with medication regimen; Z91.19 Patient's noncompliance with other medical treatment and regimen; Z83.3 Family history of diabetes mellitus
CPT/HCPCS: 83036; 84132; 84439; 84443; 86592; 93005; G0480

== ENCOUNTER 2019-09-22 09:24 | Emergency (ER) | payer MEDICAID, OTHER ==
[~2019-09-22] VITALS: Ht 165.1 cm; Wt 68.2 kg
[~2019-09-22 09:24] MED LIST changes: -ARIP10TA8 PO; +NALT50TA6 PO
[2019-09-22] MEDS ORDERED: ARIP2 PO (09:30)
[2019-09-22] MEDS ORDERED: LORazepam 2 MG/ML VIAL IM ONE (10:15)
[2019-09-22] MEDS ORDERED: HALOPERIDOL LACTATE 5 MG/ML VIAL IM ONE (10:15)
[2019-09-22 10:30] LABS: BASOPHILS % (AUTO) 0.5 % (0.0-2.0); EOSINOPHILS % (AUTO) 0.5 % (1.0-6.0); HEMATOCRIT 39.7 % (41-53); HEMOGLOBIN 13.1 g/dL (13.5-17.5); LYMPHOCYTES # (AUTO) 1.8 K/uL (1.0-4.8); LYMPHOCYTES % (AUTO) 35.5 % (22.0-44.0); MEAN CORPUSCULAR HEMOGLOBIN 28.2 pg (26.0-34.0); MEAN CORPUSCULAR VOLUME 85 fL (80-100); MONOCYTES # (AUTO) 0.4 K/uL (0.1-1.0); MONOCYTES % (AUTO) 8.3 % (2.0-9.0); NEUTROPHILS # (AUTO) 2.7 K/uL (1.8-7.7); NEUTROPHILS % (AUTO) 55.2 % (40.0-70.0); PLATELET COUNT (AUTO) 224 K/uL (150-450); RED BLOOD CELL COUNT(AUTO) 4.65 MIL/uL (4.50-5.90); RED CELL DISTRIBUTION WIDTH 13.2 % (11.5-14.5)
[2019-09-22 10:53] LABS: ANION GAP 13 mmol/L (8-16); CALCIUM, TOTAL 9.1 mg/dL (8.8-10.5); CARBON DIOXIDE 24 mmol/L (22-29); CHLORIDE 100 mmol/L (98-107); CREATININE 0.87 mg/dL (0.60-1.30); GLOMERULAR FILTR. RATE CALC > 60 mL/min (>60); GLUCOSE,RANDOM 78 mg/dL (70-110); POTASSIUM 4.3 mmol/L (3.5-5.1); SODIUM SERUM 137 mmol/L (136-145); UREA NITROGEN, BLOOD 23 mg/dL (7-18)
[2019-09-22 10:58] LABS: ALANINE AMINOTRANSFERASE 29 U/L (12-78); ALBUMIN 4.4 g/dL (3.4-5.0); ALKALINE PHOSPHATASE 74 U/L (46-116); ASPARTATE AMINOTRANSFERASE 42 U/L (15-37); BILIRUBIN,TOTAL 0.5 mg/dL (0.1-1.0); TOTAL PROTEIN, SERUM 8.7 g/dL (6.4-8.2)
[2019-09-22 16:40] VITALS: BP 102/59
== END 2019-09-22 17:44 | disposition home or self-care (01) ==
LOC: EMS 09:26
DX: F20.9 Schizophrenia, unspecified (principal); F32.9 Major depressive disorder, single episode, unspecified; E11.9 Type 2 diabetes mellitus without complications; F17.210 Nicotine dependence, cigarettes, uncomplicated; F14.90 Cocaine use, unspecified, uncomplicated; F12.90 Cannabis use, unspecified, uncomplicated; F19.90 Other psychoactive substance use, unspecified, uncomplicated; Z59.0 Homelessness; Z88.8 Allergy status to other drugs, medicaments and biological substances; Z79.899 Other long term (current) drug therapy; Z79.84 Long term (current) use of oral hypoglycemic drugs
CPT/HCPCS: 36415; 80053; 85025; 96372; 99285; G0480; J1630; J2060

== ENCOUNTER 2020-02-03 16:27 | Inpatient (IN) | payer MEDICAID, OTHER ==
[~2020-02-03] VITALS: Ht 177.8 cm; Wt 70.0 kg
[~2020-02-03 16:27] MED LIST changes: +ARIP2 PO
[2020-02-03] MEDS ORDERED: OLAN2.5T3 PO (17:22)
[2020-02-03 17:44] LABS: COVID AG,FIA SOURCE NASOPHARYNGEAL
[2020-02-03] MEDS ORDERED: LORazepam 2 MG TABLET PO ONE (17:45)
[2020-02-03] MEDS ORDERED: DiphenhydrAMINE HCL 50 MG CAPSULE PO ONE (17:45)
[2020-02-03 18:12] LABS: BASOPHILS % (AUTO) 0.2 % (0.0-2.0); EOSINOPHILS % (AUTO) 0.4 % (1.0-6.0); HEMATOCRIT 36.5 % (41-53); HEMOGLOBIN 12.2 g/dL (13.5-17.5); LYMPHOCYTES # (AUTO) 1.3 K/uL (1.0-4.8); LYMPHOCYTES % (AUTO) 22.3 % (22.0-44.0); MEAN CORPUSCULAR HEMOGLOBIN 29.1 pg (26.0-34.0); MEAN CORPUSCULAR HGB CONC 33.4 G/dL (31.0-37.0); MEAN CORPUSCULAR VOLUME 87 fL (80-100); MONOCYTES # (AUTO) 0.6 K/uL (0.1-1.0); NEUTROPHILS # (AUTO) 3.9 K/uL (1.8-7.7); NEUTROPHILS % (AUTO) 67.1 % (40.0-70.0); PLATELET COUNT (AUTO) 216 K/uL (150-450); RED BLOOD CELL COUNT(AUTO) 4.19 MIL/uL (4.50-5.90); RED CELL DISTRIBUTION WIDTH 13.5 % (11.5-14.5)
[2020-02-03 18:22] LABS: ANION GAP 8 mmol/L (8-16); CALCIUM, TOTAL 8.6 mg/dL (8.8-10.5); CARBON DIOXIDE 29 mmol/L (22-29); CHLORIDE 106 mmol/L (98-107); CREATININE 0.86 mg/dL (0.60-1.30); GLOMERULAR FILTR. RATE CALC > 60 mL/min (>60); GLUCOSE,RANDOM 118 mg/dL (70-110); POTASSIUM 3.4 mmol/L (3.5-5.1); SODIUM SERUM 143 mmol/L (136-145); UREA NITROGEN, BLOOD 12 mg/dL (7-18)
[2020-02-03 18:28] LABS: ALANINE AMINOTRANSFERASE 14 U/L (12-78); ALBUMIN 3.9 g/dL (3.4-5.0); ALKALINE PHOSPHATASE 82 U/L (46-116); ASPARTATE AMINOTRANSFERASE 24 U/L (15-37); BILIRUBIN,TOTAL 0.6 mg/dL (0.1-1.0); TOTAL PROTEIN, SERUM 7.7 g/dL (6.4-8.2)
[2020-02-03] MEDS ORDERED: POTASSIUM CHLORIDE 20 MEQ ER TABLET PO ONE (19:00)
[2020-02-03] MEDS ORDERED: OLANZapine 5 MG RAPDIS TABLET PO PRN (19:15)
[2020-02-03] MEDS ORDERED: ZOLPIDEM TARTRATE 10 MG TABLET PO PRN (19:15)
[2020-02-03 19:57] LABS: GLUCOSE,POINT OF CARE 126 MG/DL (70-110)
[2020-02-03 20:15] VITALS: BP 100/57
[2020-02-03] MEDS ORDERED: DEXTROSE 50%-WATER 25 GM/50 ML SYRINGE IVP PRN (21:45)
[2020-02-04 07:03] LABS: CHOL/HDL RATIO 2.3 (4.2-7.3)
[2020-02-04] MEDS: MetFORMIN HCL 500 MG TABLET PO SCH ×3 (07:04→17:37)
[2020-02-04] MEDS ORDERED: OMEPRAZOLE 20 MG CAPSULE PO PRN (07:30)
[2020-02-04] MEDS ORDERED: ALBUTEROL SULFATE HFA 90 MCG/PUFF 8 GM INHALER IH PRN (07:30)
[2020-02-04] MEDS ORDERED: MAGNESIUM HYDROXIDE SUSPENSION 30 ML UDCUP PO PRN (07:30)
[2020-02-04] MEDS ORDERED: BENZOCAINE/MENTHOL LOZENGE PO PRN (07:30)
[2020-02-04] MEDS ORDERED: BACITRACIN 28 GM OINTMENT TP PRN (07:30)
[2020-02-04] MEDS ORDERED: LOPERAMIDE HCL 2 MG CAPSULE PO PRN (07:30)
[2020-02-04] MEDS ORDERED: ACETAMINOPHEN 325 MG TABLET PO PRN (07:30)
[2020-02-04] MEDS ORDERED: PETROLATUM,WHITE 28 GM JELLY TP PRN (07:30)
[2020-02-04] MEDS ORDERED: CloNIDine HCL 0.1 MG TABLET PO PRN (07:30)
[2020-02-04] MEDS ORDERED: MAG HYDROX/AL HYDROX/SIMETH ES 30 ML SUSPENSION UDCUP PO PRN (07:30)
[2020-02-04] MEDS ORDERED: DOCUSATE SODIUM 100 MG CAPSULE PO PRN (07:30)
[2020-02-04] MEDS ORDERED: ONDANSETRON HCL 4 MG TABLET PO PRN (07:30)
[2020-02-04] MEDS: LISINOPRIL 5 MG TABLET PO SCH (10:06)
[2020-02-04 10:07] VITALS: BP 110/68
[2020-02-04] MEDS: INSULIN LISPRO 100 UNITS/ML SQ PRN (11:33)
[2020-02-04 11:40] LABS: GLUCOMETER DEV NAME(LOC) 3E.I 2; GLUCOSE,POINT OF CARE 90 MG/DL (70-110)
[2020-02-04 13:01] VITALS: BP 100/61
[2020-02-04] MEDS: IBUPROFEN 600 MG TABLET PO PRN (13:25)
[2020-02-04 13:26] VITALS: BP 110/61
[2020-02-04 14:27] VITALS: BP 111/64
[2020-02-04 16:00] VITALS: BP 101/43
[2020-02-04 17:04] LABS: GLUCOMETER DEV NAME(LOC) 3E.I 2; GLUCOSE,POINT OF CARE 108 MG/DL (70-110)
[2020-02-04] MEDS: SIMVASTATIN 40 MG TABLET PO SCH (21:22)
[2020-02-04] MEDS: OLANZapine 10 MG TABLET PO SCH (21:22)
[2020-02-05] MEDS: MetFORMIN HCL 500 MG TABLET PO SCH ×2 (07:03→17:25)
[2020-02-05] MEDS: INSULIN LISPRO 100 UNITS/ML SQ PRN ×2 (07:04→11:51)
[2020-02-05 08:25] LABS: GLUCOMETER DEV NAME(LOC) 3E.I 2; GLUCOSE,POINT OF CARE 128 MG/DL (70-110)
[2020-02-05 08:26] LABS: GLUCOMETER DEV NAME(LOC) 3E.I 2; GLUCOSE,POINT OF CARE 103 MG/DL (70-110)
[2020-02-05] MEDS: LISINOPRIL 5 MG TABLET PO SCH (09:42)
[2020-02-05] MEDS: IBUPROFEN 600 MG TABLET PO PRN (09:43)
[2020-02-05 09:44] VITALS: BP 112/69
[2020-02-05 10:46] VITALS: BP 110/60
[2020-02-05 12:01] LABS: GLUCOMETER DEV NAME(LOC) 3E.I 2; GLUCOSE,POINT OF CARE 81 MG/DL (70-110)
[2020-02-05 17:26] LABS: GLUCOMETER DEV NAME(LOC) 3E.I 2; GLUCOSE,POINT OF CARE 100 MG/DL (70-110)
[2020-02-05] MEDS: SIMVASTATIN 40 MG TABLET PO SCH (21:04)
[2020-02-05] MEDS: OLANZapine 10 MG TABLET PO SCH (21:04)
[2020-02-05 21:23] LABS: GLUCOMETER DEV NAME(LOC) 3E.I 2; GLUCOSE,POINT OF CARE 117 MG/DL (70-110)
[2020-02-06 06:05] LABS: GLUCOMETER DEV NAME(LOC) 3E.I 2; GLUCOSE,POINT OF CARE 101 MG/DL (70-110)
[2020-02-06] MEDS: MetFORMIN HCL 500 MG TABLET PO SCH ×2 (06:56→16:39)
[2020-02-06 08:00] VITALS: BP 114/70
[2020-02-06] MEDS: LISINOPRIL 5 MG TABLET PO SCH (10:15)
[2020-02-06 16:47] VITALS: BP 119/64
[2020-02-06] MEDS: OLANZapine 10 MG TABLET PO SCH (20:40)
[2020-02-06] MEDS: SIMVASTATIN 40 MG TABLET PO SCH (20:41)
[2020-02-07 05:31] LABS: GLUCOMETER DEV NAME(LOC) 3E.I 2; GLUCOSE,POINT OF CARE 104 MG/DL (70-110)
[2020-02-07] MEDS: MetFORMIN HCL 500 MG TABLET PO SCH ×2 (07:00→16:32)
[2020-02-07] MEDS: INSULIN LISPRO 100 UNITS/ML SQ PRN (07:09)
[2020-02-07 08:00] VITALS: BP 101/62
[2020-02-07] MEDS: LISINOPRIL 5 MG TABLET PO SCH (09:00)
[2020-02-07] MEDS: LORazepam 2 MG TABLET PO PRN (15:04)
[2020-02-07 16:00] VITALS: BP 124/62
[2020-02-07 16:44] LABS: GLUCOMETER DEV NAME(LOC) 3E.I 2; GLUCOSE,POINT OF CARE 98 MG/DL (70-110)
[2020-02-07] MEDS: OLANZapine 7.5 MG TABLET PO SCH (20:59)
[2020-02-07] MEDS: SIMVASTATIN 40 MG TABLET PO SCH (20:59)
[2020-02-07 21:54] LABS: GLUCOMETER DEV NAME(LOC) 3E.I 2; GLUCOSE,POINT OF CARE 145 MG/DL (70-110)
[2020-02-08 05:26] LABS: GLUCOMETER DEV NAME(LOC) 3E.I 2; GLUCOSE,POINT OF CARE 104 MG/DL (70-110)
[2020-02-08] MEDS: MetFORMIN HCL 500 MG TABLET PO SCH ×2 (07:01→16:26)
[2020-02-08] MEDS: INSULIN LISPRO 100 UNITS/ML SQ PRN (07:02)
[2020-02-08 08:00] VITALS: BP 101/64
[2020-02-08] MEDS: LISINOPRIL 5 MG TABLET PO SCH (09:00)
[2020-02-08 16:00] VITALS: BP 124/69
[2020-02-08 16:32] LABS: GLUCOMETER DEV NAME(LOC) 3E.I 2; GLUCOSE,POINT OF CARE 92 MG/DL (70-110)
[2020-02-08] MEDS: OLANZapine 7.5 MG TABLET PO SCH (20:44)
[2020-02-08] MEDS: SIMVASTATIN 40 MG TABLET PO SCH (20:44)
[2020-02-09 05:37] LABS: GLUCOMETER DEV NAME(LOC) 3E.I 2; GLUCOSE,POINT OF CARE 100 MG/DL (70-110)
[2020-02-09] MEDS: MetFORMIN HCL 500 MG TABLET PO SCH ×2 (06:33→16:36)
[2020-02-09 09:06] VITALS: BP 111/61
[2020-02-09] MEDS: LISINOPRIL 5 MG TABLET PO SCH (10:14)
[2020-02-09 16:00] VITALS: BP 114/66
[2020-02-09 17:07] LABS: GLUCOMETER DEV NAME(LOC) 3E.I 2; GLUCOSE,POINT OF CARE 86 MG/DL (70-110)
[2020-02-09] MEDS: SIMVASTATIN 40 MG TABLET PO SCH (20:35)
[2020-02-09] MEDS: OLANZapine 7.5 MG TABLET PO SCH (20:35)
[2020-02-10 05:49] LABS: GLUCOMETER DEV NAME(LOC) 3E.I 2; GLUCOSE,POINT OF CARE 86 MG/DL (70-110)
[2020-02-10] MEDS: MetFORMIN HCL 500 MG TABLET PO SCH ×2 (06:46→16:46)
[2020-02-10 08:00] VITALS: BP 114/59
[2020-02-10] MEDS: LISINOPRIL 5 MG TABLET PO SCH (09:00)
[2020-02-10 16:33] VITALS: BP 117/88
[2020-02-10 18:14] LABS: GLUCOMETER DEV NAME(LOC) 3E.I 2; GLUCOSE,POINT OF CARE 101 MG/DL (70-110)
[2020-02-10] MEDS: OLANZapine 7.5 MG TABLET PO SCH (21:12)
[2020-02-10] MEDS: SIMVASTATIN 40 MG TABLET PO SCH (21:12)
[2020-02-11 05:33] LABS: GLUCOMETER DEV NAME(LOC) 3E.I 2; GLUCOSE,POINT OF CARE 104 MG/DL (70-110)
[2020-02-11] MEDS: INSULIN LISPRO 100 UNITS/ML SQ PRN (06:50)
[2020-02-11] MEDS: MetFORMIN HCL 500 MG TABLET PO SCH ×2 (06:55→17:02)
[2020-02-11 08:00] VITALS: BP 113/69
[2020-02-11] MEDS: LISINOPRIL 5 MG TABLET PO SCH (09:00)
[2020-02-11] MEDS: LORazepam 2 MG TABLET PO PRN (17:02)
[2020-02-11 17:47] LABS: GLUCOMETER DEV NAME(LOC) 3E.I 2; GLUCOSE,POINT OF CARE 110 MG/DL (70-110)
[2020-02-11 19:16] VITALS: BP 100/58
[2020-02-11] MEDS: OLANZapine 7.5 MG TABLET PO SCH (20:47)
[2020-02-11] MEDS: SIMVASTATIN 40 MG TABLET PO SCH (20:47)
[2020-02-12 05:34] LABS: GLUCOMETER DEV NAME(LOC) 3E.I 2; GLUCOSE,POINT OF CARE 102 MG/DL (70-110)
[2020-02-12] MEDS: MetFORMIN HCL 500 MG TABLET PO SCH ×2 (06:39→16:35)
[2020-02-12 08:00] VITALS: BP 111/78
[2020-02-12] MEDS: LISINOPRIL 5 MG TABLET PO SCH (09:00)
[2020-02-12 16:00] VITALS: BP 116/66
[2020-02-12 18:10] LABS: GLUCOMETER DEV NAME(LOC) 3E.I 2; GLUCOSE,POINT OF CARE 123 MG/DL (70-110)
[2020-02-12] MEDS: OLANZapine 7.5 MG TABLET PO SCH (20:18)
[2020-02-12] MEDS: SIMVASTATIN 40 MG TABLET PO SCH (20:18)
[2020-02-13 05:33] LABS: GLUCOMETER DEV NAME(LOC) 3E.I 2; GLUCOSE,POINT OF CARE 97 MG/DL (70-110)
[2020-02-13] MEDS: MetFORMIN HCL 500 MG TABLET PO SCH (06:38)
[2020-02-13 08:51] VITALS: BP 105/67
[2020-02-13] MEDS: LISINOPRIL 5 MG TABLET PO SCH (08:53)
[2020-02-13] MEDS ORDERED: OLAN7.5T2 PO (15:41)
[2020-02-13] MEDS ORDERED: METF-960 PO (15:43)
[2020-02-13] MEDS ORDERED: LISI2.5T91 PO (15:44)
[2020-02-13] MEDS ORDERED: SIMV-261 PO (15:44)
== END 2020-02-13 16:05 | disposition home or self-care (01) | DRG 750 ==
LOC: EMS 16:31 → 3EI 19:09
PROVIDERS: ADMIT Psychiatry & Neurology Psychiatry; ATTEND Psychiatry & Neurology Psychiatry
DX: F25.1 Schizoaffective disorder, depressive type (principal); F32.9 Major depressive disorder, single episode, unspecified; F15.10 Other stimulant abuse, uncomplicated; I10 Essential (primary) hypertension; E11.9 Type 2 diabetes mellitus without complications; E78.5 Hyperlipidemia, unspecified; M25.569 Pain in unspecified knee; R45.851 Suicidal ideations; E87.6 Hypokalemia; F41.9 Anxiety disorder, unspecified; G47.00 Insomnia, unspecified; Z59.0 Homelessness; Z88.8 Allergy status to other drugs, medicaments and biological substances; Z20.828 Contact with and (suspected) exposure to other viral communicable diseases; Z56.0 Unemployment, unspecified; F14.90 Cocaine use, unspecified, uncomplicated
CPT/HCPCS: 87426; G0480

== ENCOUNTER 2021-02-08 09:45 | Emergency (ER) | payer MEDICAID, OTHER ==
[~2021-02-08] VITALS: Ht 175.3 cm; Wt 77.3 kg
[~2021-02-08 09:45] MED LIST changes: -ARIP2 PO; -LISI-660 PO; +LISI2.5T91 PO; +METF-1211 PO; -METF-960 PO; -NALT50TA6 PO; +OLAN7.5T22 PO; -SERT50TA12 PO; -TRAZ-257 PO
[2021-02-08 10:42] LABS: BASOPHILS % (AUTO) 0.5 % (0.0-2.0); EOSINOPHILS % (AUTO) 0.3 % (1.0-6.0); HEMATOCRIT 38.2 % (41-53); HEMOGLOBIN 12.5 g/dL (13.5-17.5); LYMPHOCYTES # (AUTO) 1.1 K/uL (1.0-4.8); LYMPHOCYTES % (AUTO) 27.2 % (22.0-44.0); MEAN CORPUSCULAR HEMOGLOBIN 28.5 pg (26.0-34.0); MEAN CORPUSCULAR HGB CONC 32.7 G/dL (31.0-37.0); MEAN CORPUSCULAR VOLUME 87 fL (80-100); MONOCYTES # (AUTO) 0.3 K/uL (0.1-1.0); MONOCYTES % (AUTO) 7.5 % (2.0-9.0); NEUTROPHILS # (AUTO) 2.5 K/uL (1.8-7.7); NEUTROPHILS % (AUTO) 64.5 % (40.0-70.0); PLATELET COUNT (AUTO) 229 K/uL (150-450); RED BLOOD CELL COUNT(AUTO) 4.38 MIL/uL (4.50-5.90)
[2021-02-08 10:56] LABS: ANION GAP 7 mmol/L (8-16); CALCIUM, TOTAL 9.1 mg/dL (8.8-10.5); CARBON DIOXIDE 30 mmol/L (22-29); CHLORIDE 104 mmol/L (98-107); CREATININE 0.95 mg/dL (0.60-1.30); GLOMERULAR FILTR. RATE CALC > 60 mL/min (>60); GLUCOSE,RANDOM 90 mg/dL (70-110); POTASSIUM 4.2 mmol/L (3.5-5.1); SODIUM SERUM 141 mmol/L (136-145); UREA NITROGEN, BLOOD 20 mg/dL (7-18)
[2021-02-08 11:04] LABS: ALANINE AMINOTRANSFERASE 31 U/L (12-78); ALBUMIN 3.9 g/dL (3.4-5.0); ALKALINE PHOSPHATASE 90 U/L (46-116); ASPARTATE AMINOTRANSFERASE 21 U/L (15-37); BILIRUBIN,TOTAL 0.3 mg/dL (0.1-1.0); TOTAL PROTEIN, SERUM 7.7 g/dL (6.4-8.2)
[2021-02-08 14:40] VITALS: BP 133/79
[2021-02-22] MEDS ORDERED: OLAN5TAB52 PO (12:53)
== END 2021-02-08 15:02 | disposition home or self-care (01) ==
LOC: EMS 09:48
DX: F25.9 Schizoaffective disorder, unspecified (principal); F32.9 Major depressive disorder, single episode, unspecified; E11.9 Type 2 diabetes mellitus without complications; E78.00 Pure hypercholesterolemia, unspecified; I10 Essential (primary) hypertension; F17.210 Nicotine dependence, cigarettes, uncomplicated; F14.90 Cocaine use, unspecified, uncomplicated; F12.90 Cannabis use, unspecified, uncomplicated; F19.90 Other psychoactive substance use, unspecified, uncomplicated; Z59.00 Homelessness unspecified; Z79.899 Other long term (current) drug therapy; Z88.8 Allergy status to other drugs, medicaments and biological substances
CPT/HCPCS: 36415; 80053; 85025; 99284; G0480

== ENCOUNTER 2021-03-19 21:02 | Emergency (ER) | payer OTHER ==
[~2021-03-19] VITALS: Ht 165.1 cm; Wt 61.4 kg
[~2021-03-19 21:02] MED LIST changes: +AMOX1TAB15 PO; -LISI2.5T91 PO; +OLAN5TAB52 PO; -OLAN7.5T22 PO
[2021-03-19 22:04] LABS: BASOPHILS % (AUTO) 0.3 % (0.0-2.0); EOSINOPHILS % (AUTO) 1.5 % (1.0-6.0); HEMATOCRIT 32.6 % (41-53); LYMPHOCYTES # (AUTO) 2.4 K/uL (1.0-4.8); LYMPHOCYTES % (AUTO) 49.8 % (22.0-44.0); MEAN CORPUSCULAR HEMOGLOBIN 28.8 pg (26.0-34.0); MEAN CORPUSCULAR HGB CONC 33.7 G/dL (31.0-37.0); MEAN CORPUSCULAR VOLUME 86 fL (80-100); MONOCYTES # (AUTO) 0.4 K/uL (0.1-1.0); MONOCYTES % (AUTO) 8.3 % (2.0-9.0); NEUTROPHILS # (AUTO) 1.9 K/uL (1.8-7.7); NEUTROPHILS % (AUTO) 40.1 % (40.0-70.0); PLATELET COUNT (AUTO) 295 K/uL (150-450); RED BLOOD CELL COUNT(AUTO) 3.81 MIL/uL (4.50-5.90); RED CELL DISTRIBUTION WIDTH 13.4 % (11.5-14.5)
[2021-03-19 22:09] LABS: ANION GAP 6 mmol/L (8-16); CALCIUM, TOTAL 8.9 mg/dL (8.8-10.5); CARBON DIOXIDE 28 mmol/L (22-29); CHLORIDE 105 mmol/L (98-107); CREATININE 0.83 mg/dL (0.60-1.30); GLOMERULAR FILTR. RATE CALC > 60 mL/min (>60); GLUCOSE,RANDOM 115 mg/dL (70-110); POTASSIUM 3.7 mmol/L (3.5-5.1); SODIUM SERUM 139 mmol/L (136-145); UREA NITROGEN, BLOOD 16 mg/dL (7-18)
[2021-03-19 22:17] LABS: ALANINE AMINOTRANSFERASE 34 U/L (12-78); ALBUMIN 3.5 g/dL (3.4-5.0); ALKALINE PHOSPHATASE 92 U/L (46-116); ASPARTATE AMINOTRANSFERASE 22 U/L (15-37); BILIRUBIN,TOTAL 0.2 mg/dL (0.1-1.0); TOTAL PROTEIN, SERUM 7.3 g/dL (6.4-8.2)
[2021-03-20 03:47] LABS: COVID AG,FIA SOURCE NASOPHARYNGEAL
[2021-03-20 04:01] LABS: AMPHET/METH SCREEN,URINE POSITIVE (NEGATIVE); BARBITURATE SCREEN, URINE NEGATIVE (NEGATIVE); BENZODIAZEPINES SCREEN,URINE NEGATIVE (NEGATIVE); CANNABINOID SCREEN,URINE NEGATIVE (NEGATIVE); COCAINE SCREEN,URINE POSITIVE (NEGATIVE); METHADONE SCREEN, URINE NEGATIVE (NEGATIVE); OPIATE SCREEN,URINE NEGATIVE (NEGATIVE)
[2021-03-20 04:10] LABS: PHENCYCLIDINE SCREEN,URINE NEGATIVE (NEGATIVE)
[2021-03-20] MEDS ORDERED: OLANZapine 5 MG TABLET PO ONE (06:00)
[2021-03-20] MEDS ORDERED: LORazepam 1 MG TABLET PO ONE (06:00)
[2021-03-20 06:16] VITALS: BP 112/66
== END 2021-03-20 09:46 | disposition home or self-care (01) ==
LOC: EMS 21:04
DX: F25.1 Schizoaffective disorder, depressive type (principal); F14.10 Cocaine abuse, uncomplicated; F15.10 Other stimulant abuse, uncomplicated; I10 Essential (primary) hypertension; E11.9 Type 2 diabetes mellitus without complications; E78.00 Pure hypercholesterolemia, unspecified; F31.9 Bipolar disorder, unspecified; F12.90 Cannabis use, unspecified, uncomplicated; F17.210 Nicotine dependence, cigarettes, uncomplicated; Z88.8 Allergy status to other drugs, medicaments and biological substances; Z79.84 Long term (current) use of oral hypoglycemic drugs; Z79.899 Other long term (current) drug therapy; Z20.822 Contact with and (suspected) exposure to COVID-19
CPT/HCPCS: 36415; 80053; 80307; 82962; 85025; 87426; 99284; G0480

== ENCOUNTER 2021-03-29 16:56 | Inpatient (IN) | payer MEDICAID, OTHER ==
[~2021-03-29] VITALS: Ht 165.1 cm; Wt 65.0 kg
[2021-03-29 19:37] LABS: BASOPHILS % (AUTO) 0.4 % (0.0-2.0); EOSINOPHILS % (AUTO) 1.9 % (1.0-6.0); HEMOGLOBIN 11.8 g/dL (13.5-17.5); LYMPHOCYTES # (AUTO) 2.1 K/uL (1.0-4.8); LYMPHOCYTES % (AUTO) 53.4 % (22.0-44.0); MEAN CORPUSCULAR HEMOGLOBIN 29.1 pg (26.0-34.0); MEAN CORPUSCULAR HGB CONC 33.7 G/dL (31.0-37.0); MEAN CORPUSCULAR VOLUME 86 fL (80-100); MONOCYTES # (AUTO) 0.3 K/uL (0.1-1.0); MONOCYTES % (AUTO) 6.6 % (2.0-9.0); NEUTROPHILS # (AUTO) 1.5 K/uL (1.8-7.7); NEUTROPHILS % (AUTO) 37.7 % (40.0-70.0); PLATELET COUNT (AUTO) 313 K/uL (150-450); RED BLOOD CELL COUNT(AUTO) 4.06 MIL/uL (4.50-5.90); RED CELL DISTRIBUTION WIDTH 14.3 % (11.5-14.5)
[2021-03-29] MEDS ORDERED: OLANZapine 5 MG RAPDIS TABLET PO PRN (19:45)
[2021-03-29] MEDS ORDERED: ZOLPIDEM TARTRATE 10 MG TABLET PO PRN (19:45)
[2021-03-29 19:48] LABS: ANION GAP 13 mmol/L (8-16); CALCIUM, TOTAL 8.6 mg/dL (8.8-10.5); CARBON DIOXIDE 30 mmol/L (22-29); CHLORIDE 106 mmol/L (98-107); CREATININE 1.01 mg/dL (0.60-1.30); GLOMERULAR FILTR. RATE CALC > 60 mL/min (>60); GLUCOSE,RANDOM 122 mg/dL (70-110); POTASSIUM 3.8 mmol/L (3.5-5.1); SODIUM SERUM 149 mmol/L (136-145); UREA NITROGEN, BLOOD 24 mg/dL (7-18)
[2021-03-29 19:55] LABS: ALANINE AMINOTRANSFERASE 26 U/L (12-78); ALBUMIN 3.8 g/dL (3.4-5.0); ALKALINE PHOSPHATASE 105 U/L (46-116); ASPARTATE AMINOTRANSFERASE 18 U/L (15-37); BILIRUBIN,TOTAL 0.2 mg/dL (0.1-1.0); TOTAL PROTEIN, SERUM 7.8 g/dL (6.4-8.2)
[2021-03-29] MEDS ORDERED: METF750T60 PO (20:02)
[2021-03-29 21:36] LABS: COVID AG,FIA SOURCE NASOPHARYNGEAL
[2021-03-29 23:43] LABS: APPEARANCE,URINE CLEAR (CLEAR); BILIRUBIN,URINE NEGATIVE (NEGATIVE); GLUCOSE, URINE (UA) NEGATIVE (NEGATIVE); KETONES,URINE TRACE mg/dL (NEGATIVE); LEUKOCYTE ESTERASE ,URINE NEGATIVE (NEGATIVE); NITRATE,URINE NEGATIVE (NEGATIVE); OCCULT BLOOD,URINE NEGATIVE (NEGATIVE); PH,URINE 5.5 (5.0-8.0); PROTEIN,URINE NEGATIVE (NEGATIVE)
[2021-03-29 23:49] LABS: AMPHET/METH SCREEN,URINE POSITIVE (NEGATIVE); BARBITURATE SCREEN, URINE NEGATIVE (NEGATIVE); BENZODIAZEPINES SCREEN,URINE NEGATIVE (NEGATIVE); CANNABINOID SCREEN,URINE NEGATIVE (NEGATIVE); COCAINE SCREEN,URINE NEGATIVE (NEGATIVE); METHADONE SCREEN, URINE NEGATIVE (NEGATIVE); OPIATE SCREEN,URINE NEGATIVE (NEGATIVE)
[2021-03-29 23:50] LABS: PHENCYCLIDINE SCREEN,URINE NEGATIVE (NEGATIVE)
[2021-03-30 00:33] LABS: CHOL/HDL RATIO 2.4 (4.2-7.3); CHOLESTEROL 207 mg/dL (131-200); HDL CHOLESTEROL 85 mg/dL (40-60); LDL CHOL (CALC.) 96 mg/dL (0-130); TRIGLYCERIDES 129 mg/dL (15-150)
[2021-03-30 01:25] VITALS: BP 116/90
[2021-03-30] MEDS ORDERED: PNEUMOCOCCAL VACCINE POLYVALENT 0.5 ML VIAL [PPSV23] IM. ONE (02:45)
[2021-03-30] MEDS ORDERED: INFLUENZA VIRUS VACCINE QVS 2021-22 (6MO+)/PF 60 MCG/0.5 ML SYRINGE IM. ONE (02:45)
[2021-03-30 06:16] LABS: GLUCOMETER DEV NAME(LOC) BV2S.; GLUCOSE,POINT OF CARE 139 MG/DL (70-110)
[2021-03-30 08:11] VITALS: BP 115/76
[2021-03-30] MEDS ORDERED: GLUCAGON,HUMAN RECOMBINANT 1 MG VIAL IM PRN (09:00)
[2021-03-30 11:36] LABS: GLUCOMETER DEV NAME(LOC) BV2S.; GLUCOSE,POINT OF CARE 94 MG/DL (70-110)
[2021-03-30 16:03] VITALS: BP_SYST 129; BP_SYST 138; BP_DIAS 65; BP_DIAS 69
[2021-03-30 16:32] LABS: GLUCOMETER DEV NAME(LOC) BV2S.; GLUCOSE,POINT OF CARE 125 MG/DL (70-110)
[2021-03-30] MEDS ORDERED: NICOTINE 14 MG/24 HOUR PATCH TD PRN (17:00)
[2021-03-30] MEDS ORDERED: ALBUTEROL SULFATE HFA 90 MCG/PUFF 8 GM INHALER IH PRN (17:00)
[2021-03-30] MEDS ORDERED: CloNIDine HCL 0.1 MG TABLET PO PRN (17:00)
[2021-03-30] MEDS ORDERED: MAG HYDROX/AL HYDROX/SIMETH ES 30 ML SUSPENSION UDCUP PO PRN (17:00)
[2021-03-30] MEDS ORDERED: ACETAMINOPHEN 325 MG TABLET PO PRN (17:00)
[2021-03-30] MEDS ORDERED: LOPERAMIDE HCL 2 MG CAPSULE PO PRN (17:00)
[2021-03-30] MEDS ORDERED: IBUPROFEN 400 MG TABLET PO PRN (17:00)
[2021-03-30] MEDS ORDERED: PETROLATUM,WHITE 28 GM JELLY TP PRN (17:00)
[2021-03-30] MEDS ORDERED: ONDANSETRON HCL 4 MG TABLET PO PRN (17:00)
[2021-03-30] MEDS ORDERED: GuaiFENesin/D-METHORPHAN [SUGAR-FREE] 200-20MG/10 ML SYRUP UDCUP PO PRN (17:00)
[2021-03-30] MEDS ORDERED: DOCUSATE SODIUM 100 MG CAPSULE PO PRN (17:00)
[2021-03-30] MEDS ORDERED: MAGNESIUM HYDROXIDE SUSPENSION 30 ML UDCUP PO PRN (17:00)
[2021-03-30] MEDS: MetFORMIN HCL 500 MG TABLET PO SCH (17:27)
[2021-03-30] MEDS: SIMVASTATIN 20 MG TABLET PO SCH (20:33)
[2021-03-30 20:37] LABS: GLUCOMETER DEV NAME(LOC) BV2S.; GLUCOSE,POINT OF CARE 143 MG/DL (70-110)
[2021-03-30] MEDS: INSULIN LISPRO 100 UNITS/ML SQ PRN (21:00)
[2021-03-31 00:04] VITALS: BP 127/71
[2021-03-31 06:31] LABS: GLUCOMETER DEV NAME(LOC) BV2S.; GLUCOSE,POINT OF CARE 115 MG/DL (70-110)
[2021-03-31 08:13] VITALS: BP 117/73
[2021-03-31] MEDS: MULTIVITAMINS WITH IRON TABLET PO SCH (08:48)
[2021-03-31 11:36] LABS: GLUCOMETER DEV NAME(LOC) BV2S.; GLUCOSE,POINT OF CARE 79 MG/DL (70-110)
[2021-03-31] MEDS: OLANZapine 5 MG TABLET PO SCH (12:21)
[2021-03-31 16:20] VITALS: BP 108/74
[2021-03-31] MEDS: MetFORMIN HCL 500 MG TABLET PO SCH (16:43)
[2021-03-31] MEDS: INSULIN LISPRO 100 UNITS/ML SQ PRN (16:49)
[2021-03-31 17:06] LABS: GLUCOMETER DEV NAME(LOC) BV2S.; GLUCOSE,POINT OF CARE 146 MG/DL (70-110)
[2021-03-31] MEDS: SIMVASTATIN 20 MG TABLET PO SCH (20:35)
[2021-03-31 21:01] LABS: GLUCOMETER DEV NAME(LOC) BV2S.; GLUCOSE,POINT OF CARE 113 MG/DL (70-110)
[2021-04-01 06:22] VITALS: BP 132/69
[2021-04-01 06:31] LABS: GLUCOMETER DEV NAME(LOC) BV2S.; GLUCOSE,POINT OF CARE 115 MG/DL (70-110)
[2021-04-01] MEDS: OLANZapine 5 MG TABLET PO SCH ×2 (08:15→20:11)
[2021-04-01] MEDS: MULTIVITAMINS WITH IRON TABLET PO SCH (08:15)
[2021-04-01 09:05] VITALS: BP 122/76
[2021-04-01 11:31] LABS: GLUCOMETER DEV NAME(LOC) BV2S.; GLUCOSE,POINT OF CARE 118 MG/DL (70-110)
[2021-04-01 16:08] VITALS: BP 122/79
[2021-04-01] MEDS: MetFORMIN HCL 500 MG TABLET PO SCH (16:53)
[2021-04-01 17:22] LABS: GLUCOMETER DEV NAME(LOC) BV2S.; GLUCOSE,POINT OF CARE 122 MG/DL (70-110)
[2021-04-01] MEDS: SIMVASTATIN 20 MG TABLET PO SCH (20:11)
[2021-04-01 21:21] LABS: GLUCOMETER DEV NAME(LOC) BV2S.; GLUCOSE,POINT OF CARE 122 MG/DL (70-110)
[2021-04-02 02:01] VITALS: BP 131/76
[2021-04-02 06:31] LABS: GLUCOMETER DEV NAME(LOC) BV2S.; GLUCOSE,POINT OF CARE 88 MG/DL (70-110)
[2021-04-02 08:18] VITALS: BP 114/51
[2021-04-02] MEDS: MULTIVITAMINS WITH IRON TABLET PO SCH (08:46)
[2021-04-02] MEDS: OLANZapine 5 MG TABLET PO SCH ×2 (08:46→20:29)
[2021-04-02 11:36] LABS: GLUCOMETER DEV NAME(LOC) BV2S.; GLUCOSE,POINT OF CARE 125 MG/DL (70-110)
[2021-04-02 16:05] VITALS: BP 116/63
[2021-04-02] MEDS: MetFORMIN HCL 500 MG TABLET PO SCH (16:30)
[2021-04-02 16:36] LABS: GLUCOMETER DEV NAME(LOC) BV2S.; GLUCOSE,POINT OF CARE 119 MG/DL (70-110)
[2021-04-02] MEDS: LORazepam 2 MG TABLET PO PRN (16:57)
[2021-04-02] MEDS: SIMVASTATIN 20 MG TABLET PO SCH (20:30)
[2021-04-02 20:37] LABS: GLUCOMETER DEV NAME(LOC) BV2S.; GLUCOSE,POINT OF CARE 178 MG/DL (70-110)
[2021-04-02] MEDS: INSULIN LISPRO 100 UNITS/ML SQ PRN (20:41)
[2021-04-03 00:29] VITALS: BP 115/63
[2021-04-03 06:31] LABS: GLUCOMETER DEV NAME(LOC) BV2S.; GLUCOSE,POINT OF CARE 114 MG/DL (70-110)
[2021-04-03 07:49] LABS: COVID AG,FIA SOURCE NASOPHARYNGEAL
[2021-04-03] MEDS: MULTIVITAMINS WITH IRON TABLET PO SCH (08:00)
[2021-04-03] MEDS: OLANZapine 5 MG TABLET PO SCH ×2 (08:00→20:30)
[2021-04-03 08:14] VITALS: BP 127/84
[2021-04-03 11:21] LABS: GLUCOMETER DEV NAME(LOC) BV2S.; GLUCOSE,POINT OF CARE 100 MG/DL (70-110)
[2021-04-03 16:01] VITALS: BP 120/67
[2021-04-03 16:17] LABS: GLUCOMETER DEV NAME(LOC) BV2S.; GLUCOSE,POINT OF CARE 107 MG/DL (70-110)
[2021-04-03] MEDS: MetFORMIN HCL 500 MG TABLET PO SCH (16:28)
[2021-04-03] MEDS: SIMVASTATIN 20 MG TABLET PO SCH (20:30)
[2021-04-03 20:31] LABS: GLUCOMETER DEV NAME(LOC) BV2S.; GLUCOSE,POINT OF CARE 197 MG/DL (70-110)
[2021-04-03] MEDS: INSULIN LISPRO 100 UNITS/ML SQ PRN (20:40)
[2021-04-04 04:30] VITALS: BP 118/69
[2021-04-04 07:06] LABS: GLUCOMETER DEV NAME(LOC) BV2S.; GLUCOSE,POINT OF CARE 142 MG/DL (70-110)
[2021-04-04] MEDS: INSULIN LISPRO 100 UNITS/ML SQ PRN ×3 (07:07→21:01)
[2021-04-04] MEDS: MULTIVITAMINS WITH IRON TABLET PO SCH (08:05)
[2021-04-04] MEDS: OLANZapine 5 MG TABLET PO SCH ×2 (08:05→20:34)
[2021-04-04 08:07] VITALS: BP 105/63
[2021-04-04 11:06] LABS: GLUCOMETER DEV NAME(LOC) BV2S.; GLUCOSE,POINT OF CARE 138 MG/DL (70-110)
[2021-04-04 16:01] VITALS: BP 116/60
[2021-04-04 16:21] LABS: GLUCOMETER DEV NAME(LOC) BV2S.; GLUCOSE,POINT OF CARE 176 MG/DL (70-110)
[2021-04-04] MEDS: MetFORMIN HCL 500 MG TABLET PO SCH (16:32)
[2021-04-04] MEDS: LORazepam 2 MG TABLET PO PRN (18:49)
[2021-04-04 20:26] LABS: GLUCOMETER DEV NAME(LOC) BV2S.; GLUCOSE,POINT OF CARE 143 MG/DL (70-110)
[2021-04-04] MEDS: SIMVASTATIN 20 MG TABLET PO SCH (20:34)
[2021-04-05 00:12] VITALS: BP 118/65
[2021-04-05 06:21] LABS: GLUCOMETER DEV NAME(LOC) BV2S.; GLUCOSE,POINT OF CARE 123 MG/DL (70-110)
[2021-04-05] MEDS: OLANZapine 5 MG TABLET PO SCH (08:04)
[2021-04-05] MEDS: MULTIVITAMINS WITH IRON TABLET PO SCH (08:04)
[2021-04-05 08:06] VITALS: BP 124/69
[2021-04-05 09:51] LABS: ANION GAP 8 mmol/L (8-16); CALCIUM, TOTAL 8.9 mg/dL (8.8-10.5); CARBON DIOXIDE 28 mmol/L (22-29); CHLORIDE 101 mmol/L (98-107); CREATININE 0.81 mg/dL (0.60-1.30); GLOMERULAR FILTR. RATE CALC > 60 mL/min (>60); GLUCOSE,RANDOM 176 mg/dL (70-110); POTASSIUM 4.6 mmol/L (3.5-5.1); SODIUM SERUM 137 mmol/L (136-145); UREA NITROGEN, BLOOD 18 mg/dL (7-18)
[2021-04-05 11:46] LABS: GLUCOMETER DEV NAME(LOC) BV2S.; GLUCOSE,POINT OF CARE 227 MG/DL (70-110)
== END 2021-04-05 11:30 | disposition home or self-care (01) | DRG 750 ==
LOC: EMS 16:59 → B2S 22:00
PROVIDERS: ADMIT Psychiatry & Neurology Child & Adolescent Psychiatry; ATTEND Psychiatry & Neurology Child & Adolescent Psychiatry
PROC: 3E02340 Introduction of Influenza Vaccine into Muscle, Percutaneous Approach (ICD-10-PCS; principal; 2021-03-30)
PROC: 3E0234Z Introduction of Serum, Toxoid and Vaccine into Muscle, Percutaneous Approach (ICD-10-PCS; 2021-03-30)
DX: F25.1 Schizoaffective disorder, depressive type (principal); E87.0 Hyperosmolality and hypernatremia; R45.851 Suicidal ideations; E11.9 Type 2 diabetes mellitus without complications; D72.819 Decreased white blood cell count, unspecified; E78.00 Pure hypercholesterolemia, unspecified; D64.9 Anemia, unspecified; Z20.822 Contact with and (suspected) exposure to COVID-19; E78.5 Hyperlipidemia, unspecified; F10.10 Alcohol abuse, uncomplicated; I10 Essential (primary) hypertension; F41.9 Anxiety disorder, unspecified; F12.10 Cannabis abuse, uncomplicated; F15.10 Other stimulant abuse, uncomplicated; F14.10 Cocaine abuse, uncomplicated; Y90.9 Presence of alcohol in blood, level not specified; F17.210 Nicotine dependence, cigarettes, uncomplicated; Z59.00 Homelessness unspecified; Z88.8 Allergy status to other drugs, medicaments and biological substances; Z91.19 Patient's noncompliance with other medical treatment and regimen; Z23 Encounter for immunization; Z79.4 Long term (current) use of insulin
CPT/HCPCS: 80048; 80053; 80061; 81003; 82962; 83036; 85025; 87081; 90686; 90732; 99285; G0480

== ENCOUNTER 2021-04-22 16:12 | Emergency (ER) | payer MEDICAID, OTHER ==
[~2021-04-22 16:12] MED LIST changes: -AMOX1TAB15 PO
== END 2021-04-22 17:49 | disposition left against medical advice (07) ==
LOC: EMS 16:14
DX: F29 Unspecified psychosis not due to a substance or known physiological condition (principal); Z53.21 Procedure and treatment not carried out due to patient leaving prior to being seen by health care provider

== ENCOUNTER 2021-04-22 23:37 | Inpatient (IN) | payer MEDICAID, OTHER ==
[~2021-04-22] VITALS: Ht 165.1 cm; Wt 64.4 kg
[2021-04-23 00:39] LABS: COVID AG,FIA SOURCE NASOPHARYNGEAL
[2021-04-23 00:40] LABS: BASOPHILS % (AUTO) 0.1 % (0.0-2.0); EOSINOPHILS % (AUTO) 0.5 % (1.0-6.0); HEMATOCRIT 40.3 % (41-53); HEMOGLOBIN 13.4 g/dL (13.5-17.5); LYMPHOCYTES # (AUTO) 0.4 K/uL (1.0-4.8); LYMPHOCYTES % (AUTO) 8.9 % (22.0-44.0); MEAN CORPUSCULAR HEMOGLOBIN 28.6 pg (26.0-34.0); MEAN CORPUSCULAR HGB CONC 33.3 G/dL (31.0-37.0); MEAN CORPUSCULAR VOLUME 86 fL (80-100); MONOCYTES # (AUTO) 0.2 K/uL (0.1-1.0); MONOCYTES % (AUTO) 4.9 % (2.0-9.0); NEUTROPHILS # (AUTO) 4.3 K/uL (1.8-7.7); PLATELET COUNT (AUTO) 254 K/uL (150-450); RED BLOOD CELL COUNT(AUTO) 4.69 MIL/uL (4.50-5.90)
[2021-04-23] MEDS ORDERED: ZOLPIDEM TARTRATE 10 MG TABLET PO PRN (00:45)
[2021-04-23 00:55] LABS: ANION GAP 6 mmol/L (8-16); CALCIUM, TOTAL 8.9 mg/dL (8.8-10.5); CARBON DIOXIDE 31 mmol/L (22-29); CHLORIDE 107 mmol/L (98-107); CREATININE 0.84 mg/dL (0.60-1.30); GLOMERULAR FILTR. RATE CALC > 60 mL/min (>60); GLUCOSE,RANDOM 121 mg/dL (70-110); POTASSIUM 4.3 mmol/L (3.5-5.1); SODIUM SERUM 144 mmol/L (136-145); UREA NITROGEN, BLOOD 16 mg/dL (7-18)
[2021-04-23 00:57] LABS: NEUTROPHILS % (AUTO) 85.6 % (40.0-70.0)
[2021-04-23 01:01] LABS: ALANINE AMINOTRANSFERASE 24 U/L (12-78); ALBUMIN 3.7 g/dL (3.4-5.0); ALKALINE PHOSPHATASE 82 U/L (46-116); ASPARTATE AMINOTRANSFERASE 17 U/L (15-37); BILIRUBIN,TOTAL 0.3 mg/dL (0.1-1.0)
[2021-04-23 01:50] LABS: APPEARANCE,URINE CLEAR (CLEAR); BILIRUBIN,URINE NEGATIVE (NEGATIVE); GLUCOSE, URINE (UA) NEGATIVE (NEGATIVE); KETONES,URINE NEGATIVE (NEGATIVE); LEUKOCYTE ESTERASE ,URINE NEGATIVE (NEGATIVE); NITRATE,URINE NEGATIVE (NEGATIVE); OCCULT BLOOD,URINE NEGATIVE (NEGATIVE); PH,URINE 5.5 (5.0-8.0); PROTEIN,URINE NEGATIVE (NEGATIVE); UROBILINOGEN,URINE 0.2 mg/dL (<=1.0)
[2021-04-23 01:58] LABS: AMPHET/METH SCREEN,URINE POSITIVE (NEGATIVE); BARBITURATE SCREEN, URINE NEGATIVE (NEGATIVE); BENZODIAZEPINES SCREEN,URINE NEGATIVE (NEGATIVE); CANNABINOID SCREEN,URINE NEGATIVE (NEGATIVE); COCAINE SCREEN,URINE NEGATIVE (NEGATIVE); METHADONE SCREEN, URINE NEGATIVE (NEGATIVE); OPIATE SCREEN,URINE NEGATIVE (NEGATIVE)
[2021-04-23 02:01] LABS: PHENCYCLIDINE SCREEN,URINE NEGATIVE (NEGATIVE)
[2021-04-23 10:14] VITALS: BP 144/72
[2021-04-23 10:21] LABS: GLUCOMETER DEV NAME(LOC) BV2S.; GLUCOSE,POINT OF CARE 93 MG/DL (70-110)
[2021-04-23] MEDS ORDERED: MAG HYDROX/AL HYDROX/SIMETH ES 30 ML SUSPENSION UDCUP PO PRN ×2 (10:45→17:30)
[2021-04-23] MEDS ORDERED: GuaiFENesin/D-METHORPHAN [SUGAR-FREE] 200-20MG/10 ML SYRUP UDCUP PO PRN ×2 (10:45→17:30)
[2021-04-23] MEDS ORDERED: ALBUTEROL SULFATE HFA 90 MCG/PUFF 8 GM INHALER IH PRN ×2 (10:45→17:30)
[2021-04-23] MEDS ORDERED: MAGNESIUM HYDROXIDE SUSPENSION 30 ML UDCUP PO PRN ×2 (10:45→17:30)
[2021-04-23] MEDS ORDERED: IBUPROFEN 400 MG TABLET PO PRN ×2 (10:45→17:30)
[2021-04-23] MEDS ORDERED: ONDANSETRON HCL 4 MG TABLET PO PRN ×2 (10:45→17:30)
[2021-04-23] MEDS ORDERED: DOCUSATE SODIUM 100 MG CAPSULE PO PRN ×2 (10:45→17:30)
[2021-04-23] MEDS ORDERED: LOPERAMIDE HCL 2 MG CAPSULE PO PRN ×2 (10:45→17:30)
[2021-04-23] MEDS ORDERED: PETROLATUM,WHITE 28 GM JELLY TP PRN ×2 (10:45→17:30)
[2021-04-23] MEDS ORDERED: CloNIDine HCL 0.1 MG TABLET PO PRN ×2 (10:45→17:30)
[2021-04-23] MEDS ORDERED: GLUCAGON,HUMAN RECOMBINANT 1 MG VIAL IM PRN (10:45)
[2021-04-23] MEDS ORDERED: ACETAMINOPHEN 325 MG TABLET PO PRN ×2 (10:45→17:30)
[2021-04-23] MEDS ORDERED: NICOTINE 14 MG/24 HOUR PATCH TD PRN ×2 (10:45→17:30)
[2021-04-23] MEDS: OLANZapine 5 MG TABLET PO SCH ×2 (11:55→20:11)
[2021-04-23 16:28] VITALS: BP 104/69
[2021-04-23] MEDS: SULFAMETHOX/TRIMETH DS 800-160 MG/TABLET PO SCH (16:34)
[2021-04-23] MEDS: CEPHALEXIN MONOHYDRATE 500 MG CAPSULE PO SCH (16:34)
[2021-04-23 16:41] LABS: GLUCOMETER DEV NAME(LOC) BV2S.; GLUCOSE,POINT OF CARE 84 MG/DL (70-110)
[2021-04-23 20:42] LABS: GLUCOMETER DEV NAME(LOC) BV2S.; GLUCOSE,POINT OF CARE 105 MG/DL (70-110)
[2021-04-24 06:01] VITALS: BP 135/68
[2021-04-24 06:26] LABS: GLUCOMETER DEV NAME(LOC) BV2S.; GLUCOSE,POINT OF CARE 88 MG/DL (70-110)
[2021-04-24 07:10] LABS: BASOPHILS % (AUTO) 0.2 % (0.0-2.0); EOSINOPHILS % (AUTO) 2.9 % (1.0-6.0); HEMATOCRIT 34.7 % (41-53); HEMOGLOBIN 11.7 g/dL (13.5-17.5); LYMPHOCYTES # (AUTO) 1.1 K/uL (1.0-4.8); LYMPHOCYTES % (AUTO) 39.4 % (22.0-44.0); MEAN CORPUSCULAR HEMOGLOBIN 28.8 pg (26.0-34.0); MEAN CORPUSCULAR HGB CONC 33.7 G/dL (31.0-37.0); MEAN CORPUSCULAR VOLUME 86 fL (80-100); MONOCYTES # (AUTO) 0.3 K/uL (0.1-1.0); MONOCYTES % (AUTO) 10.8 % (2.0-9.0); NEUTROPHILS # (AUTO) 1.3 K/uL (1.8-7.7); NEUTROPHILS % (AUTO) 46.7 % (40.0-70.0); PLATELET COUNT (AUTO) 196 K/uL (150-450); RED BLOOD CELL COUNT(AUTO) 4.06 MIL/uL (4.50-5.90); RED CELL DISTRIBUTION WIDTH 13.9 % (11.5-14.5)
[2021-04-24 07:19] LABS: HEMOGLOBIN A1C 6.3 % (3.8-5.6)
[2021-04-24 07:24] LABS: CHOL/HDL RATIO 2.1 (4.2-7.3)
[2021-04-24 07:38] LABS: ALANINE AMINOTRANSFERASE 36 U/L (12-78); ALKALINE PHOSPHATASE 71 U/L (46-116); ANION GAP 7 mmol/L (8-16); ASPARTATE AMINOTRANSFERASE 34 U/L (15-37); BILIRUBIN,TOTAL 0.3 mg/dL (0.1-1.0); CALCIUM, TOTAL 8.3 mg/dL (8.8-10.5); CARBON DIOXIDE 28 mmol/L (22-29); CHLORIDE 107 mmol/L (98-107); CREATININE 0.71 mg/dL (0.60-1.30); GLOMERULAR FILTR. RATE CALC > 60 mL/min (>60); GLUCOSE,RANDOM 104 mg/dL (70-110); POTASSIUM 3.5 mmol/L (3.5-5.1); SODIUM SERUM 142 mmol/L (136-145); TOTAL PROTEIN, SERUM 6.7 g/dL (6.4-8.2); UREA NITROGEN, BLOOD 15 mg/dL (7-18)
[2021-04-24 07:59] LABS: THYROID STIMULATING HORMONE 0.67 uIU/mL (0.36-3.74)
[2021-04-24] MEDS: CEPHALEXIN MONOHYDRATE 500 MG CAPSULE PO SCH ×2 (08:44→16:53)
[2021-04-24] MEDS: OLANZapine 5 MG TABLET PO SCH ×2 (08:44→20:12)
[2021-04-24] MEDS: SULFAMETHOX/TRIMETH DS 800-160 MG/TABLET PO SCH (08:44)
[2021-04-24 11:56] LABS: GLUCOMETER DEV NAME(LOC) BV2S.; GLUCOSE,POINT OF CARE 78 MG/DL (70-110)
[2021-04-24 12:00] VITALS: BP 140/79
[2021-04-24 16:00] VITALS: BP 113/69
[2021-04-24 16:30] VITALS: BP 113/69
[2021-04-24 17:01] LABS: GLUCOMETER DEV NAME(LOC) BV2S.; GLUCOSE,POINT OF CARE 79 MG/DL (70-110)
[2021-04-24 20:52] LABS: GLUCOMETER DEV NAME(LOC) BV2S.; GLUCOSE,POINT OF CARE 132 MG/DL (70-110)
[2021-04-25 01:00] VITALS: BP 110/71
[2021-04-25 06:26] LABS: GLUCOMETER DEV NAME(LOC) BV2S.; GLUCOSE,POINT OF CARE 83 MG/DL (70-110)
[2021-04-25 08:46] VITALS: BP 105/71
[2021-04-25] MEDS: CEPHALEXIN MONOHYDRATE 500 MG CAPSULE PO SCH ×2 (09:55→16:29)
[2021-04-25] MEDS: OLANZapine 5 MG RAPDIS TABLET PO PRN (09:55)
[2021-04-25] MEDS: SULFAMETHOX/TRIMETH DS 800-160 MG/TABLET PO SCH (09:55)
[2021-04-25] MEDS: OLANZapine 5 MG TABLET PO SCH ×2 (09:56→20:32)
[2021-04-25 16:28] VITALS: BP 114/67
[2021-04-25 16:31] LABS: GLUCOMETER DEV NAME(LOC) BV2S.; GLUCOSE,POINT OF CARE 88 MG/DL (70-110)
[2021-04-25 20:26] LABS: GLUCOMETER DEV NAME(LOC) BV2S.; GLUCOSE,POINT OF CARE 106 MG/DL (70-110)
[2021-04-26 00:47] VITALS: BP 117/69
[2021-04-26] MEDS: SULFAMETHOX/TRIMETH DS 800-160 MG/TABLET PO SCH (08:23)
[2021-04-26] MEDS: CEPHALEXIN MONOHYDRATE 500 MG CAPSULE PO SCH ×2 (08:23→16:42)
[2021-04-26] MEDS: OLANZapine 5 MG TABLET PO SCH ×2 (08:23→20:38)
[2021-04-26 08:44] VITALS: BP 108/57
[2021-04-26 11:31] LABS: GLUCOMETER DEV NAME(LOC) BV2S.; GLUCOSE,POINT OF CARE 90 MG/DL (70-110)
[2021-04-26 16:30] VITALS: BP 117/71
[2021-04-26] MEDS: INSULIN LISPRO 100 UNITS/ML SQ PRN (16:50)
[2021-04-26 17:02] LABS: GLUCOMETER DEV NAME(LOC) BV2S.; GLUCOSE,POINT OF CARE 244 MG/DL (70-110)
[2021-04-26 20:26] LABS: GLUCOMETER DEV NAME(LOC) BV2S.; GLUCOSE,POINT OF CARE 106 MG/DL (70-110)
[2021-04-27 00:57] VITALS: BP 113/70
[2021-04-27 06:26] LABS: GLUCOMETER DEV NAME(LOC) BV2S.; GLUCOSE,POINT OF CARE 103 MG/DL (70-110)
[2021-04-27 08:30] VITALS: BP 122/60
[2021-04-27] MEDS: SULFAMETHOX/TRIMETH DS 800-160 MG/TABLET PO SCH (08:41)
[2021-04-27] MEDS: CEPHALEXIN MONOHYDRATE 500 MG CAPSULE PO SCH ×2 (08:41→16:52)
[2021-04-27] MEDS: OLANZapine 5 MG TABLET PO SCH ×2 (08:41→20:13)
[2021-04-27 12:01] LABS: GLUCOMETER DEV NAME(LOC) BV2S.; GLUCOSE,POINT OF CARE 88 MG/DL (70-110)
[2021-04-27] MEDS: LORazepam 2 MG TABLET PO PRN (15:59)
[2021-04-27 16:28] VITALS: BP 113/65
[2021-04-27 17:11] LABS: GLUCOMETER DEV NAME(LOC) BV2S.; GLUCOSE,POINT OF CARE 97 MG/DL (70-110)
[2021-04-27] MEDS: INSULIN LISPRO 100 UNITS/ML SQ PRN (20:42)
[2021-04-27 21:11] LABS: GLUCOMETER DEV NAME(LOC) BV2S.; GLUCOSE,POINT OF CARE 163 MG/DL (70-110)
[2021-04-28 05:34] VITALS: BP 107/69
[2021-04-28 06:21] LABS: GLUCOMETER DEV NAME(LOC) BV2S.; GLUCOSE,POINT OF CARE 96 MG/DL (70-110)
[2021-04-28 07:59] LABS: COVID AG,FIA SOURCE NASOPHARYNGEAL
[2021-04-28] MEDS: SULFAMETHOX/TRIMETH DS 800-160 MG/TABLET PO SCH (08:12)
[2021-04-28] MEDS: CEPHALEXIN MONOHYDRATE 500 MG CAPSULE PO SCH ×2 (08:12→16:40)
[2021-04-28] MEDS: OLANZapine 5 MG TABLET PO SCH ×2 (08:12→20:58)
[2021-04-28 08:37] VITALS: BP 115/62
[2021-04-28 11:02] LABS: GLUCOMETER DEV NAME(LOC) BV2S.; GLUCOSE,POINT OF CARE 98 MG/DL (70-110)
[2021-04-28 16:33] VITALS: BP 110/65
[2021-04-28] MEDS: INSULIN LISPRO 100 UNITS/ML SQ PRN ×2 (16:52→21:02)
[2021-04-28 16:56] LABS: GLUCOMETER DEV NAME(LOC) BV2S.; GLUCOSE,POINT OF CARE 130 MG/DL (70-110)
[2021-04-28 21:11] LABS: GLUCOMETER DEV NAME(LOC) BV2S.; GLUCOSE,POINT OF CARE 150 MG/DL (70-110)
[2021-04-29 03:36] VITALS: BP 112/68
[2021-04-29 06:11] LABS: GLUCOMETER DEV NAME(LOC) BV2S.; GLUCOSE,POINT OF CARE 105 MG/DL (70-110)
[2021-04-29] MEDS: SULFAMETHOX/TRIMETH DS 800-160 MG/TABLET PO SCH (08:20)
[2021-04-29] MEDS: OLANZapine 5 MG TABLET PO SCH ×2 (08:20→20:29)
[2021-04-29] MEDS: CEPHALEXIN MONOHYDRATE 500 MG CAPSULE PO SCH ×2 (08:20→16:08)
[2021-04-29 08:27] VITALS: BP 114/56
[2021-04-29 11:46] LABS: GLUCOMETER DEV NAME(LOC) BV2S.; GLUCOSE,POINT OF CARE 102 MG/DL (70-110)
[2021-04-29] MEDS: LORazepam 2 MG TABLET PO PRN (15:47)
[2021-04-29 16:16] VITALS: BP 105/65
[2021-04-29 16:56] LABS: GLUCOMETER DEV NAME(LOC) BV2S.; GLUCOSE,POINT OF CARE 136 MG/DL (70-110)
[2021-04-29 22:12] LABS: GLUCOMETER DEV NAME(LOC) BV2S.; GLUCOSE,POINT OF CARE 136 MG/DL (70-110)
[2021-04-30 00:18] VITALS: BP 101/57
[2021-04-30 06:22] LABS: GLUCOMETER DEV NAME(LOC) BV2S.; GLUCOSE,POINT OF CARE 94 MG/DL (70-110)
[2021-04-30 08:13] VITALS: BP 113/60
[2021-04-30] MEDS: OLANZapine 5 MG TABLET PO SCH ×2 (09:48→20:09)
[2021-04-30] MEDS: CEPHALEXIN MONOHYDRATE 500 MG CAPSULE PO SCH (10:33)
[2021-04-30 11:46] LABS: GLUCOMETER DEV NAME(LOC) BV2S.; GLUCOSE,POINT OF CARE 127 MG/DL (70-110)
[2021-04-30] MEDS: LORazepam 2 MG TABLET PO PRN (13:39)
[2021-04-30 16:15] VITALS: BP 113/64
[2021-04-30 17:21] LABS: GLUCOMETER DEV NAME(LOC) BV2S.; GLUCOSE,POINT OF CARE 111 MG/DL (70-110)
[2021-04-30 21:21] LABS: GLUCOMETER DEV NAME(LOC) BV2S.; GLUCOSE,POINT OF CARE 149 MG/DL (70-110)
[2021-05-01 05:55] VITALS: BP 122/74
[2021-05-01 06:37] LABS: GLUCOMETER DEV NAME(LOC) BV2S.; GLUCOSE,POINT OF CARE 114 MG/DL (70-110)
[2021-05-01 08:25] VITALS: BP 126/61
[2021-05-01] MEDS: OLANZapine 5 MG TABLET PO SCH ×2 (08:25→20:57)
[2021-05-01] MEDS: LORazepam 2 MG TABLET PO PRN ×3 (08:25→21:25)
[2021-05-01 11:51] LABS: GLUCOMETER DEV NAME(LOC) BV2S.; GLUCOSE,POINT OF CARE 139 MG/DL (70-110)
[2021-05-01 16:20] VITALS: BP 111/68
[2021-05-01 16:51] LABS: GLUCOMETER DEV NAME(LOC) BV2S.; GLUCOSE,POINT OF CARE 125 MG/DL (70-110)
[2021-05-01 17:26] VITALS: BP 115/72
[2021-05-01] MEDS ORDERED: BENZOCAINE 10% 7 GM GEL TP PRN (18:00)
[2021-05-01 22:51] LABS: GLUCOMETER DEV NAME(LOC) BV2S.; GLUCOSE,POINT OF CARE 138 MG/DL (70-110)
[2021-05-02 06:52] VITALS: BP 108/59
[2021-05-02] MEDS: OLANZapine 5 MG TABLET PO SCH ×2 (08:16→21:17)
[2021-05-02 08:23] VITALS: BP 125/74
[2021-05-02] MEDS: INSULIN LISPRO 100 UNITS/ML SQ PRN ×3 (11:15→21:22)
[2021-05-02 11:16] LABS: GLUCOMETER DEV NAME(LOC) BV2S.; GLUCOSE,POINT OF CARE 158 MG/DL (70-110)
[2021-05-02 16:40] VITALS: BP 117/71
[2021-05-02 17:16] LABS: GLUCOMETER DEV NAME(LOC) BV2S.; GLUCOSE,POINT OF CARE 159 MG/DL (70-110)
[2021-05-02 21:36] LABS: GLUCOMETER DEV NAME(LOC) BV2S.; GLUCOSE,POINT OF CARE 159 MG/DL (70-110)
[2021-05-03 02:09] VITALS: BP 112/69
[2021-05-03 06:27] LABS: GLUCOMETER DEV NAME(LOC) BV2S.; GLUCOSE,POINT OF CARE 97 MG/DL (70-110)
[2021-05-03] MEDS: OLANZapine 5 MG TABLET PO SCH ×2 (08:45→20:32)
[2021-05-03 11:01] LABS: GLUCOMETER DEV NAME(LOC) BV2S.; GLUCOSE,POINT OF CARE 176 MG/DL (70-110)
[2021-05-03] MEDS: INSULIN LISPRO 100 UNITS/ML SQ PRN ×3 (11:36→20:47)
[2021-05-03] MEDS: OLANZapine 5 MG RAPDIS TABLET PO PRN (12:43)
[2021-05-03] MEDS: LORazepam 2 MG TABLET PO PRN (12:43)
[2021-05-03 12:54] VITALS: BP 110/67
[2021-05-03 16:32] LABS: GLUCOMETER DEV NAME(LOC) BV2S.; GLUCOSE,POINT OF CARE 151 MG/DL (70-110)
[2021-05-03 16:51] VITALS: BP 111/68
[2021-05-03 20:42] LABS: GLUCOMETER DEV NAME(LOC) BV2S.; GLUCOSE,POINT OF CARE 148 MG/DL (70-110)
[2021-05-04 00:58] VITALS: BP 112/70
[2021-05-04 06:11] LABS: GLUCOMETER DEV NAME(LOC) BV2S.; GLUCOSE,POINT OF CARE 139 MG/DL (70-110)
[2021-05-04] MEDS: OLANZapine 5 MG TABLET PO SCH (08:10)
[2021-05-04] MEDS: LORazepam 2 MG TABLET PO PRN (09:35)
[2021-05-04 10:28] VITALS: BP 111/58
[2021-05-04] MEDS ORDERED: OLAN5TAB52 PO (10:48)
[2021-05-04 11:01] LABS: GLUCOMETER DEV NAME(LOC) BV2S.; GLUCOSE,POINT OF CARE 181 MG/DL (70-110)
[2021-05-04] MEDS: INSULIN LISPRO 100 UNITS/ML SQ PRN (11:30)
== END 2021-05-04 12:30 | disposition home or self-care (01) | DRG 750 ==
LOC: EMS 23:39 → B2S 04-23 07:51
PROVIDERS: ADMIT Psychiatry & Neurology Child & Adolescent Psychiatry; ATTEND Psychiatry & Neurology Child & Adolescent Psychiatry
DX: F25.1 Schizoaffective disorder, depressive type (principal); F15.951 Other stimulant use, unspecified with stimulant-induced psychotic disorder with hallucinations; E11.9 Type 2 diabetes mellitus without complications; E78.00 Pure hypercholesterolemia, unspecified; E78.5 Hyperlipidemia, unspecified; L02.419 Cutaneous abscess of limb, unspecified; F17.200 Nicotine dependence, unspecified, uncomplicated; F31.9 Bipolar disorder, unspecified; I10 Essential (primary) hypertension; Z20.822 Contact with and (suspected) exposure to COVID-19; Z71.6 Tobacco abuse counseling; Z59.00 Homelessness unspecified; Z91.51 Personal history of suicidal behavior; Z88.8 Allergy status to other drugs, medicaments and biological substances
CPT/HCPCS: 80053; 80061; 81003; 82962; 83036; 84443; 85025; 87081; 99285; G0480

== ENCOUNTER 2021-07-11 00:42 | Emergency (ER) | payer MEDICAID, OTHER ==
[~2021-07-11] VITALS: Ht 165.1 cm; Wt 64.1 kg
[~2021-07-11 00:42] MED LIST changes: -METF-1211 PO; -SIMV-261 PO
[2021-07-11 01:28] VITALS: BP 131/77
== END 2021-07-11 04:21 | disposition home or self-care (01) ==
LOC: EMS 00:44
DX: M79.644 Pain in right finger(s) (principal); I10 Essential (primary) hypertension; E11.9 Type 2 diabetes mellitus without complications; E78.00 Pure hypercholesterolemia, unspecified; F20.9 Schizophrenia, unspecified; F31.9 Bipolar disorder, unspecified; F12.90 Cannabis use, unspecified, uncomplicated; F15.90 Other stimulant use, unspecified, uncomplicated; F17.210 Nicotine dependence, cigarettes, uncomplicated; Z59.00 Homelessness unspecified; Z88.8 Allergy status to other drugs, medicaments and biological substances
CPT/HCPCS: 99283

== ENCOUNTER 2021-07-27 13:22 | Inpatient (IN) | payer MEDICAID, OTHER ==
[~2021-07-27] VITALS: Ht 167.6 cm; Wt 67.6 kg
[2021-07-27 13:58] LABS: BASOPHILS % (AUTO) 0.3 % (0.0-2.0); EOSINOPHILS % (AUTO) 0.2 % (1.0-6.0); HEMATOCRIT 34.6 % (41-53); HEMOGLOBIN 11.6 g/dL (13.5-17.5); LYMPHOCYTES # (AUTO) 1.9 K/uL (1.0-4.8); LYMPHOCYTES % (AUTO) 42.1 % (22.0-44.0); MEAN CORPUSCULAR HEMOGLOBIN 28.1 pg (26.0-34.0); MEAN CORPUSCULAR HGB CONC 33.6 G/dL (31.0-37.0); MEAN CORPUSCULAR VOLUME 84 fL (80-100); MONOCYTES # (AUTO) 0.4 K/uL (0.1-1.0); NEUTROPHILS # (AUTO) 2.2 K/uL (1.8-7.7); NEUTROPHILS % (AUTO) 48.4 % (40.0-70.0); PLATELET COUNT (AUTO) 261 K/uL (150-450); RED BLOOD CELL COUNT(AUTO) 4.13 MIL/uL (4.50-5.90); RED CELL DISTRIBUTION WIDTH 14.1 % (11.5-14.5)
[2021-07-27 14:08] LABS: ANION GAP 10 mmol/L (8-16); CALCIUM, TOTAL 9.2 mg/dL (8.8-10.5); CARBON DIOXIDE 25 mmol/L (22-29); CHLORIDE 102 mmol/L (98-107); CREATININE 0.94 mg/dL (0.60-1.30); GLOMERULAR FILTR. RATE CALC > 60 mL/min (>60); GLUCOSE,RANDOM 77 mg/dL (70-110); POTASSIUM 3.6 mmol/L (3.5-5.1); SODIUM SERUM 137 mmol/L (136-145); UREA NITROGEN, BLOOD 27 mg/dL (7-18)
[2021-07-27 14:14] LABS: ALANINE AMINOTRANSFERASE 32 U/L (12-78); ALBUMIN 4.4 g/dL (3.4-5.0); ALKALINE PHOSPHATASE 79 U/L (46-116); ASPARTATE AMINOTRANSFERASE 53 U/L (15-37); BILIRUBIN,TOTAL 0.8 mg/dL (0.1-1.0); TOTAL PROTEIN, SERUM 8.5 g/dL (6.4-8.2)
[2021-07-27] MEDS ORDERED: OLANZapine 5 MG TABLET PO ONE (14:15)
[2021-07-27] MEDS ORDERED: LORazepam 1 MG TABLET PO ONE (14:15)
[2021-07-27 14:22] LABS: COVID AG,FIA SOURCE NASOPHARYNGEAL
[2021-07-27] MEDS ORDERED: ACETAMINOPHEN 325 MG TABLET PO PRN (15:00)
[2021-07-27] MEDS ORDERED: ZOLPIDEM TARTRATE 10 MG TABLET PO PRN (17:00)
[2021-07-27] MEDS ORDERED: -PHARMACY VACCINE NOTE- MISC ONE (18:45)
[2021-07-27 22:46] LABS: GLUCOMETER DEV NAME(LOC) BV2S.; GLUCOSE,POINT OF CARE 167 MG/DL (70-110)
[2021-07-27 22:46] LABS: GLUCOMETER DEV NAME(LOC) BV2S.; GLUCOSE,POINT OF CARE 62 MG/DL (70-110)
[2021-07-28 06:09] VITALS: BP 102/60
[2021-07-28 06:56] LABS: GLUCOMETER DEV NAME(LOC) BV2S.; GLUCOSE,POINT OF CARE 97 MG/DL (70-110)
[2021-07-28 08:55] VITALS: BP 130/80
[2021-07-28 16:07] VITALS: BP 101/62
[2021-07-28] MEDS: OLANZapine 7.5 MG TABLET PO SCH (21:19)
[2021-07-29 08:09] VITALS: BP 100/59
[2021-07-29 16:18] VITALS: BP 111/70
[2021-07-29] MEDS: OLANZapine 7.5 MG TABLET PO SCH (20:46)
[2021-07-30 01:05] VITALS: BP 108/69
[2021-07-30 07:45] LABS: APPEARANCE,URINE CLEAR (CLEAR); BILIRUBIN,URINE NEGATIVE (NEGATIVE); GLUCOSE, URINE (UA) NEGATIVE (NEGATIVE); KETONES,URINE NEGATIVE (NEGATIVE); LEUKOCYTE ESTERASE ,URINE NEGATIVE (NEGATIVE); NITRATE,URINE NEGATIVE (NEGATIVE); OCCULT BLOOD,URINE NEGATIVE (NEGATIVE); PH,URINE 5.5 (5.0-8.0); PROTEIN,URINE NEGATIVE (NEGATIVE); SPECIFIC GRAVITIY, URINE 1.018 (1.003-1.030); UROBILINOGEN,URINE <=1.0 mg/dL (<=1.0)
[2021-07-30 07:50] LABS: AMPHET/METH SCREEN,URINE NEGATIVE (NEGATIVE); BARBITURATE SCREEN, URINE NEGATIVE (NEGATIVE); BENZODIAZEPINES SCREEN,URINE NEGATIVE (NEGATIVE); CANNABINOID SCREEN,URINE NEGATIVE (NEGATIVE); COCAINE SCREEN,URINE NEGATIVE (NEGATIVE); METHADONE SCREEN, URINE NEGATIVE (NEGATIVE); OPIATE SCREEN,URINE NEGATIVE (NEGATIVE); PHENCYCLIDINE SCREEN,URINE NEGATIVE (NEGATIVE)
[2021-07-30 08:29] VITALS: BP 105/64
[2021-07-30 16:14] VITALS: BP 125/67
[2021-07-30] MEDS: OLANZapine 7.5 MG TABLET PO SCH (20:49)
[2021-07-31 04:00] VITALS: BP 118/62
[2021-07-31 08:50] VITALS: BP 140/72
[2021-07-31 16:25] VITALS: BP 119/72
[2021-07-31] MEDS: OLANZapine 7.5 MG TABLET PO SCH (20:45)
[2021-08-01 00:53] VITALS: BP 112/71
[2021-08-01 08:14] VITALS: BP 117/64
[2021-08-01 16:30] VITALS: BP 112/67
[2021-08-01] MEDS: OLANZapine 7.5 MG TABLET PO SCH (20:30)
[2021-08-02 00:26] VITALS: BP 110/70
[2021-08-02 08:35] VITALS: BP 121/63
[2021-08-02 16:23] VITALS: BP 102/64
[2021-08-02] MEDS: OLANZapine 7.5 MG TABLET PO SCH (20:29)
[2021-08-03 00:47] VITALS: BP 103/62
[2021-08-03 08:07] LABS: GLUCOMETER DEV NAME(LOC) POC.BV
[2021-08-03 08:17] VITALS: BP 115/62
[2021-08-03 16:05] VITALS: BP 101/58
[2021-08-03] MEDS: OLANZapine 7.5 MG TABLET PO SCH (20:27)
[2021-08-04 00:55] VITALS: BP 104/62
[2021-08-04 10:19] VITALS: BP 122/62
[2021-08-04] MEDS ORDERED: IBUPROFEN 600 MG TABLET PO PRN (10:45)
[2021-08-04] MEDS ORDERED: PETROLATUM,WHITE 28 GM JELLY TP PRN (10:45)
[2021-08-04] MEDS ORDERED: LOPERAMIDE HCL 2 MG CAPSULE PO PRN (10:45)
[2021-08-04] MEDS ORDERED: BACITRACIN 28 GM OINTMENT TP PRN (10:45)
[2021-08-04] MEDS ORDERED: MAGNESIUM HYDROXIDE SUSPENSION 30 ML UDCUP PO PRN (10:45)
[2021-08-04] MEDS ORDERED: ACETAMINOPHEN 325 MG TABLET PO PRN (10:45)
[2021-08-04] MEDS ORDERED: ONDANSETRON HCL 4 MG TABLET PO PRN (10:45)
[2021-08-04] MEDS ORDERED: MAG HYDROX/AL HYDROX/SIMETH ES 30 ML SUSPENSION UDCUP PO PRN (10:45)
[2021-08-04] MEDS ORDERED: ALBUTEROL SULFATE HFA 90 MCG/PUFF 8 GM INHALER IH PRN (10:45)
[2021-08-04] MEDS ORDERED: BENZOCAINE/MENTHOL LOZENGE PO PRN (10:45)
[2021-08-04] MEDS ORDERED: CloNIDine HCL 0.1 MG TABLET PO PRN (10:45)
[2021-08-04 16:20] VITALS: BP 124/73
[2021-08-04] MEDS: OLANZapine 7.5 MG TABLET PO SCH (20:34)
[2021-08-04] MEDS ORDERED: OLAN7.5T22 PO (21:28)
[2021-08-05 01:53] VITALS: BP 115/65
[2021-08-05 08:42] VITALS: BP 146/78
[2021-08-05] MEDS ORDERED: OMEPRAZOLE 20 MG CAPSULE PO SCH (09:00)
[2021-08-05] MEDS ORDERED: DOCUSATE SODIUM 100 MG CAPSULE PO SCH (09:00)
[2021-08-05] MEDS ORDERED: OLAN7.5T22 PO (09:22)
== END 2021-08-05 09:50 | disposition home or self-care (01) | DRG 750 ==
LOC: EMS 13:22 → B2S 14:59
PROVIDERS: ADMIT Psychiatry & Neurology Psychiatry; ATTEND Psychiatry & Neurology Psychiatry
DX: F25.1 Schizoaffective disorder, depressive type (principal); E11.9 Type 2 diabetes mellitus without complications; R45.851 Suicidal ideations; E78.00 Pure hypercholesterolemia, unspecified; E78.5 Hyperlipidemia, unspecified; F17.210 Nicotine dependence, cigarettes, uncomplicated; Z20.822 Contact with and (suspected) exposure to COVID-19; I10 Essential (primary) hypertension; F15.10 Other stimulant abuse, uncomplicated; F41.9 Anxiety disorder, unspecified; G47.00 Insomnia, unspecified; Z88.8 Allergy status to other drugs, medicaments and biological substances; Z72.89 Other problems related to lifestyle; Z56.0 Unemployment, unspecified
CPT/HCPCS: 80053; 80307; 81003; 82962; 83036; 85025; 99285; G0480

== ENCOUNTER 2021-08-12 18:14 | Emergency (ER) | payer MEDICAID, OTHER ==
[~2021-08-12] VITALS: Ht 165.1 cm; Wt 69.1 kg
[~2021-08-12 18:14] MED LIST changes: -OLAN5TAB52 PO; +OLAN7.5T22 PO
[2021-08-12] MEDS ORDERED: ACETAMINOPHEN 500 MG TABLET PO ONE (19:30)
[2021-08-12 21:14] VITALS: BP 135/78
== END 2021-08-12 21:20 | disposition home or self-care (01) ==
LOC: EMS 18:32
DX: M79.641 Pain in right hand (principal); M79.644 Pain in right finger(s); E78.00 Pure hypercholesterolemia, unspecified; I10 Essential (primary) hypertension; F20.9 Schizophrenia, unspecified; F12.90 Cannabis use, unspecified, uncomplicated; F15.90 Other stimulant use, unspecified, uncomplicated; Z98.890 Other specified postprocedural states; Z59.00 Homelessness unspecified; Z88.8 Allergy status to other drugs, medicaments and biological substances
CPT/HCPCS: 82962; 99283

== ENCOUNTER 2021-09-04 09:41 | Inpatient (IN) | payer MEDICAID, OTHER ==
[~2021-09-04] VITALS: Ht 165.1 cm; Wt 66.7 kg
[2021-09-04 11:16] LABS: BASOPHILS % (AUTO) 0.4 % (0.0-2.0); EOSINOPHILS % (AUTO) 3.2 % (1.0-6.0); HEMOGLOBIN 11.2 g/dL (13.5-17.5); LYMPHOCYTES # (AUTO) 1.6 K/uL (1.0-4.8); LYMPHOCYTES % (AUTO) 48.2 % (22.0-44.0); MEAN CORPUSCULAR HEMOGLOBIN 28.5 pg (26.0-34.0); MEAN CORPUSCULAR HGB CONC 33.8 G/dL (31.0-37.0); MEAN CORPUSCULAR VOLUME 84 fL (80-100); MONOCYTES # (AUTO) 0.3 K/uL (0.1-1.0); MONOCYTES % (AUTO) 8.1 % (2.0-9.0); NEUTROPHILS # (AUTO) 1.3 K/uL (1.8-7.7); NEUTROPHILS % (AUTO) 40.1 % (40.0-70.0); PLATELET COUNT (AUTO) 241 K/uL (150-450); RED BLOOD CELL COUNT(AUTO) 3.92 MIL/uL (4.50-5.90); RED CELL DISTRIBUTION WIDTH 14.6 % (11.5-14.5)
[2021-09-04 11:24] LABS: ANION GAP 7 mmol/L (8-16); CALCIUM, TOTAL 8.3 mg/dL (8.8-10.5); CARBON DIOXIDE 29 mmol/L (22-29); CHLORIDE 108 mmol/L (98-107); CREATININE 0.73 mg/dL (0.60-1.30); GLOMERULAR FILTR. RATE CALC > 60 mL/min (>60); GLUCOSE,RANDOM 101 mg/dL (70-110); POTASSIUM 4.1 mmol/L (3.5-5.1); SODIUM SERUM 144 mmol/L (136-145); UREA NITROGEN, BLOOD 20 mg/dL (7-18)
[2021-09-04 11:35] LABS: ALANINE AMINOTRANSFERASE 21 U/L (12-78); ALBUMIN 3.4 g/dL (3.4-5.0); ALKALINE PHOSPHATASE 80 U/L (46-116); ASPARTATE AMINOTRANSFERASE 21 U/L (15-37); BILIRUBIN,TOTAL 0.5 mg/dL (0.1-1.0); TOTAL PROTEIN, SERUM 7.1 g/dL (6.4-8.2)
[2021-09-04] MEDS ORDERED: ZOLPIDEM TARTRATE 10 MG TABLET PO PRN (12:15)
[2021-09-04] MEDS ORDERED: OLANZapine 5 MG RAPDIS TABLET PO PRN (12:15)
[2021-09-04] MEDS ORDERED: METF-446 PO (12:22)
[2021-09-04] MEDS ORDERED: LISI5TAB21 PO (12:22)
[2021-09-04] MEDS ORDERED: SIMV-46 PO (12:22)
[2021-09-04] MEDS ORDERED: OMEP20CA12 PO (12:22)
[2021-09-04 13:03] LABS: COVID AG,FIA SOURCE NASAL SWAB
[2021-09-04 19:00] VITALS: BP 134/86
[2021-09-04 19:46] LABS: AMPHET/METH SCREEN,URINE POSITIVE (NEGATIVE); BARBITURATE SCREEN, URINE NEGATIVE (NEGATIVE); BENZODIAZEPINES SCREEN,URINE NEGATIVE (NEGATIVE); CANNABINOID SCREEN,URINE NEGATIVE (NEGATIVE); COCAINE SCREEN,URINE NEGATIVE (NEGATIVE); METHADONE SCREEN, URINE NEGATIVE (NEGATIVE); OPIATE SCREEN,URINE NEGATIVE (NEGATIVE); PHENCYCLIDINE SCREEN,URINE NEGATIVE (NEGATIVE)
[2021-09-04 20:46] LABS: GLUCOMETER DEV NAME(LOC) 3E.I 2; GLUCOSE,POINT OF CARE 112 MG/DL (70-110)
[2021-09-04] MEDS: SIMVASTATIN 40 MG TABLET PO SCH (21:29)
[2021-09-05] MEDS ORDERED: MAGNESIUM HYDROXIDE SUSPENSION 30 ML UDCUP PO PRN (06:30)
[2021-09-05] MEDS ORDERED: CloNIDine HCL 0.1 MG TABLET PO PRN (06:30)
[2021-09-05] MEDS ORDERED: ONDANSETRON HCL 4 MG TABLET PO PRN (06:30)
[2021-09-05] MEDS ORDERED: DOCUSATE SODIUM 100 MG CAPSULE PO PRN (06:30)
[2021-09-05] MEDS ORDERED: ALBUTEROL SULFATE HFA 90 MCG/PUFF 8 GM INHALER IH PRN (06:30)
[2021-09-05] MEDS ORDERED: ACETAMINOPHEN 325 MG TABLET PO PRN (06:30)
[2021-09-05] MEDS ORDERED: IBUPROFEN 400 MG TABLET PO PRN (06:30)
[2021-09-05] MEDS ORDERED: NICOTINE 14 MG/24 HOUR PATCH TD PRN (06:30)
[2021-09-05] MEDS ORDERED: LOPERAMIDE HCL 2 MG CAPSULE PO PRN (06:30)
[2021-09-05] MEDS ORDERED: MAG HYDROX/AL HYDROX/SIMETH ES 30 ML SUSPENSION UDCUP PO PRN (06:30)
[2021-09-05] MEDS ORDERED: PETROLATUM,WHITE 28 GM JELLY TP PRN (06:30)
[2021-09-05] MEDS ORDERED: GuaiFENesin/D-METHORPHAN [SUGAR-FREE] 200-20MG/10 ML SYRUP UDCUP PO PRN (06:30)
[2021-09-05 06:56] LABS: GLUCOMETER DEV NAME(LOC) 3E.I 2; GLUCOSE,POINT OF CARE 99 MG/DL (70-110)
[2021-09-05] MEDS: MetFORMIN HCL 500 MG TABLET PO SCH ×2 (07:08→17:53)
[2021-09-05 09:17] VITALS: BP 109/63
[2021-09-05] MEDS: NICOTINE 14 MG/24 HOUR PATCH TD SCH (09:58)
[2021-09-05] MEDS: OMEPRAZOLE 20 MG CAPSULE PO SCH (09:58)
[2021-09-05 10:00] VITALS: BP 111/67
[2021-09-05] MEDS: LISINOPRIL 10 MG TABLET PO SCH (10:30)
[2021-09-05 16:36] LABS: GLUCOMETER DEV NAME(LOC) 3E.I 2; GLUCOSE,POINT OF CARE 104 MG/DL (70-110)
[2021-09-05] MEDS: SIMVASTATIN 40 MG TABLET PO SCH (20:48)
[2021-09-05] MEDS: OLANZapine 7.5 MG TABLET PO SCH (20:48)
[2021-09-06 04:15] VITALS: BP 108/59
[2021-09-06] MEDS: MetFORMIN HCL 500 MG TABLET PO SCH ×2 (06:33→17:03)
[2021-09-06 06:42] LABS: GLUCOMETER DEV NAME(LOC) 3E.I 2; GLUCOSE,POINT OF CARE 92 MG/DL (70-110)
[2021-09-06] MEDS: OMEPRAZOLE 20 MG CAPSULE PO SCH (09:00)
[2021-09-06 09:40] VITALS: BP 104/56
[2021-09-06] MEDS: LISINOPRIL 10 MG TABLET PO SCH (12:17)
[2021-09-06] MEDS: NICOTINE 14 MG/24 HOUR PATCH TD SCH (12:18)
[2021-09-06 16:00] VITALS: BP 103/63
[2021-09-06 17:11] LABS: GLUCOMETER DEV NAME(LOC) 3E.I 2; GLUCOSE,POINT OF CARE 73 MG/DL (70-110)
[2021-09-06] MEDS: OLANZapine 7.5 MG TABLET PO SCH (20:12)
[2021-09-06] MEDS: SIMVASTATIN 40 MG TABLET PO SCH (20:12)
[2021-09-06 21:11] LABS: GLUCOMETER DEV NAME(LOC) 3E.I 2; GLUCOSE,POINT OF CARE 99 MG/DL (70-110)
[2021-09-07 06:32] LABS: GLUCOMETER DEV NAME(LOC) 3E.I 2; GLUCOSE,POINT OF CARE 92 MG/DL (70-110)
[2021-09-07] MEDS: MetFORMIN HCL 500 MG TABLET PO SCH ×2 (06:44→17:03)
[2021-09-07 08:19] VITALS: BP 105/60
[2021-09-07] MEDS: LISINOPRIL 10 MG TABLET PO SCH (09:00)
[2021-09-07] MEDS: OMEPRAZOLE 20 MG CAPSULE PO SCH (09:24)
[2021-09-07] MEDS: NICOTINE 14 MG/24 HOUR PATCH TD SCH (09:25)
[2021-09-07 16:00] VITALS: BP 120/62
[2021-09-07 16:26] LABS: GLUCOMETER DEV NAME(LOC) 3E.I 2; GLUCOSE,POINT OF CARE 123 MG/DL (70-110)
[2021-09-07] MEDS: LORazepam 2 MG TABLET PO PRN (16:44)
[2021-09-07] MEDS: SIMVASTATIN 40 MG TABLET PO SCH (20:26)
[2021-09-07] MEDS: OLANZapine 7.5 MG TABLET PO SCH (20:27)
[2021-09-08 06:36] LABS: GLUCOMETER DEV NAME(LOC) 3E.I 2; GLUCOSE,POINT OF CARE 85 MG/DL (70-110)
[2021-09-08] MEDS: MetFORMIN HCL 500 MG TABLET PO SCH ×2 (06:54→17:33)
[2021-09-08 08:29] VITALS: BP 123/71
[2021-09-08] MEDS: OMEPRAZOLE 20 MG CAPSULE PO SCH (08:42)
[2021-09-08] MEDS: LISINOPRIL 10 MG TABLET PO SCH (08:42)
[2021-09-08] MEDS: NICOTINE 14 MG/24 HOUR PATCH TD SCH (08:43)
[2021-09-08 16:25] VITALS: BP 116/70
[2021-09-08 16:26] LABS: GLUCOMETER DEV NAME(LOC) 3E.I 2; GLUCOSE,POINT OF CARE 108 MG/DL (70-110)
[2021-09-08] MEDS: SIMVASTATIN 40 MG TABLET PO SCH (20:23)
[2021-09-08] MEDS: OLANZapine 7.5 MG TABLET PO SCH (20:30)
[2021-09-09] MEDS: MetFORMIN HCL 500 MG TABLET PO SCH ×2 (06:52→16:57)
[2021-09-09 06:56] LABS: GLUCOMETER DEV NAME(LOC) 3E.I 2; GLUCOSE,POINT OF CARE 153 MG/DL (70-110)
[2021-09-09 08:45] VITALS: BP 106/61
[2021-09-09] MEDS: LISINOPRIL 10 MG TABLET PO SCH (09:00)
[2021-09-09] MEDS: OMEPRAZOLE 20 MG CAPSULE PO SCH (09:22)
[2021-09-09] MEDS: NICOTINE 14 MG/24 HOUR PATCH TD SCH (09:30)
[2021-09-09 12:45] VITALS: BP 103/64
[2021-09-09 16:26] LABS: GLUCOMETER DEV NAME(LOC) 3E.I 2; GLUCOSE,POINT OF CARE 117 MG/DL (70-110)
[2021-09-09 16:47] VITALS: BP 128/92
[2021-09-09] MEDS: SIMVASTATIN 40 MG TABLET PO SCH (21:25)
[2021-09-09] MEDS: OLANZapine 7.5 MG TABLET PO SCH (21:25)
[2021-09-10] MEDS: LORazepam 2 MG TABLET PO PRN (00:52)
[2021-09-10 06:41] LABS: GLUCOMETER DEV NAME(LOC) 3E.I 2; GLUCOSE,POINT OF CARE 98 MG/DL (70-110)
[2021-09-10] MEDS: MetFORMIN HCL 500 MG TABLET PO SCH ×2 (06:47→16:34)
[2021-09-10] MEDS: LISINOPRIL 10 MG TABLET PO SCH (09:00)
[2021-09-10 09:03] VITALS: BP 98/59
[2021-09-10] MEDS: OMEPRAZOLE 20 MG CAPSULE PO SCH (09:41)
[2021-09-10] MEDS: NICOTINE 14 MG/24 HOUR PATCH TD SCH (09:41)
[2021-09-10 16:00] VITALS: BP 107/60
[2021-09-10 16:21] LABS: GLUCOMETER DEV NAME(LOC) 3E.I 2; GLUCOSE,POINT OF CARE 113 MG/DL (70-110)
[2021-09-10 16:31] LABS: COVID AG,FIA SOURCE NASAL SWAB
[2021-09-10] MEDS: SIMVASTATIN 40 MG TABLET PO SCH (20:23)
[2021-09-10] MEDS: OLANZapine 7.5 MG TABLET PO SCH (20:23)
[2021-09-11 05:56] LABS: GLUCOMETER DEV NAME(LOC) 3E.I 2; GLUCOSE,POINT OF CARE 109 MG/DL (70-110)
[2021-09-11] MEDS: MetFORMIN HCL 500 MG TABLET PO SCH ×2 (06:35→17:00)
[2021-09-11 08:04] VITALS: BP 98/60
[2021-09-11] MEDS: LISINOPRIL 10 MG TABLET PO SCH ×2 (09:00→10:18)
[2021-09-11] MEDS: OMEPRAZOLE 20 MG CAPSULE PO SCH (10:18)
[2021-09-11] MEDS: NICOTINE 14 MG/24 HOUR PATCH TD SCH (10:21)
[2021-09-11 16:00] VITALS: BP 121/72
[2021-09-11 19:30] LABS: GLUCOMETER DEV NAME(LOC) 3E.I 2; GLUCOSE,POINT OF CARE 141 MG/DL (70-110)
[2021-09-11] MEDS: OLANZapine 7.5 MG TABLET PO SCH (20:23)
[2021-09-11] MEDS: SIMVASTATIN 40 MG TABLET PO SCH (20:23)
[2021-09-12] MEDS: LORazepam 2 MG TABLET PO PRN (03:34)
[2021-09-12 04:56] VITALS: BP 103/68
[2021-09-12 06:01] LABS: GLUCOMETER DEV NAME(LOC) 3E.I 2; GLUCOSE,POINT OF CARE 92 MG/DL (70-110)
[2021-09-12] MEDS: MetFORMIN HCL 500 MG TABLET PO SCH ×2 (06:34→16:42)
[2021-09-12] MEDS: OMEPRAZOLE 20 MG CAPSULE PO SCH (08:45)
[2021-09-12] MEDS: LISINOPRIL 10 MG TABLET PO SCH (08:45)
[2021-09-12] MEDS: NICOTINE 14 MG/24 HOUR PATCH TD SCH (08:46)
[2021-09-12 09:08] VITALS: BP 124/77
[2021-09-12 16:00] VITALS: BP 99/69
[2021-09-12 16:51] LABS: GLUCOMETER DEV NAME(LOC) 3E.I 2; GLUCOSE,POINT OF CARE 153 MG/DL (70-110)
[2021-09-12] MEDS: OLANZapine 7.5 MG TABLET PO SCH (20:04)
[2021-09-12] MEDS: SIMVASTATIN 40 MG TABLET PO SCH (20:04)
[2021-09-13 02:40] VITALS: BP 125/75
[2021-09-13] MEDS: LORazepam 2 MG TABLET PO PRN (02:46)
[2021-09-13 06:26] LABS: GLUCOMETER DEV NAME(LOC) 3E.I 2; GLUCOSE,POINT OF CARE 87 MG/DL (70-110)
[2021-09-13] MEDS: MetFORMIN HCL 500 MG TABLET PO SCH (06:40)
[2021-09-13] MEDS: OMEPRAZOLE 20 MG CAPSULE PO SCH (08:47)
[2021-09-13] MEDS: NICOTINE 14 MG/24 HOUR PATCH TD SCH (08:49)
[2021-09-13 09:57] VITALS: BP 100/62
[2021-09-13] MEDS: LISINOPRIL 10 MG TABLET PO SCH (11:14)
== END 2021-09-13 16:20 | disposition home or self-care (01) | DRG 750 ==
LOC: EMS 10:55 → 3EI 19:00
PROVIDERS: ADMIT Psychiatry & Neurology Psychiatry; ATTEND Psychiatry & Neurology Psychiatry
DX: F25.1 Schizoaffective disorder, depressive type (principal); R45.851 Suicidal ideations; E11.9 Type 2 diabetes mellitus without complications; E78.00 Pure hypercholesterolemia, unspecified; E78.5 Hyperlipidemia, unspecified; D64.9 Anemia, unspecified; Z59.00 Homelessness unspecified; F41.9 Anxiety disorder, unspecified; I10 Essential (primary) hypertension; F32.A Depression, unspecified; F15.10 Other stimulant abuse, uncomplicated; F17.210 Nicotine dependence, cigarettes, uncomplicated; K21.9 Gastro-esophageal reflux disease without esophagitis; Z20.822 Contact with and (suspected) exposure to COVID-19; F19.10 Other psychoactive substance abuse, uncomplicated; Z91.14 Patient's other noncompliance with medication regimen; Z91.51 Personal history of suicidal behavior; Z88.8 Allergy status to other drugs, medicaments and biological substances; Z71.51 Drug abuse counseling and surveillance of drug abuser; Z79.4 Long term (current) use of insulin
CPT/HCPCS: 80053; 82962; 85025; 99285; G0480

== ENCOUNTER 2021-09-25 17:15 | Emergency (ER) | payer MEDICAID, OTHER ==
[~2021-09-25] VITALS: Ht 167.6 cm; Wt 63.6 kg
[2021-09-25 17:42] LABS: BASOPHILS % (AUTO) 0.3 % (0.0-2.0); EOSINOPHILS % (AUTO) 2.6 % (1.0-6.0); HEMATOCRIT 33.6 % (41-53); HEMOGLOBIN 11.2 g/dL (13.5-17.5); LYMPHOCYTES # (AUTO) 1.9 K/uL (1.0-4.8); LYMPHOCYTES % (AUTO) 53.6 % (22.0-44.0); MEAN CORPUSCULAR HEMOGLOBIN 28.6 pg (26.0-34.0); MEAN CORPUSCULAR HGB CONC 33.2 G/dL (31.0-37.0); MEAN CORPUSCULAR VOLUME 86 fL (80-100); MONOCYTES # (AUTO) 0.4 K/uL (0.1-1.0); MONOCYTES % (AUTO) 10.5 % (2.0-9.0); NEUTROPHILS # (AUTO) 1.2 K/uL (1.8-7.7); PLATELET COUNT (AUTO) 208 K/uL (150-450); RED CELL DISTRIBUTION WIDTH 14.4 % (11.5-14.5)
[2021-09-25 17:49] LABS: ANION GAP 5 mmol/L (8-16); CALCIUM, TOTAL 8.7 mg/dL (8.8-10.5); CARBON DIOXIDE 28 mmol/L (22-29); CHLORIDE 107 mmol/L (98-107); CREATININE 0.91 mg/dL (0.60-1.30); GLOMERULAR FILTR. RATE CALC > 60 mL/min (>60); GLUCOSE,RANDOM 81 mg/dL (70-110); POTASSIUM 3.5 mmol/L (3.5-5.1); SODIUM SERUM 140 mmol/L (136-145); UREA NITROGEN, BLOOD 16 mg/dL (7-18)
[2021-09-25 17:54] LABS: ALANINE AMINOTRANSFERASE 28 U/L (12-78); ALBUMIN 3.8 g/dL (3.4-5.0); ALKALINE PHOSPHATASE 92 U/L (46-116); ASPARTATE AMINOTRANSFERASE 24 U/L (15-37); BILIRUBIN,TOTAL 0.4 mg/dL (0.1-1.0); TOTAL PROTEIN, SERUM 7.6 g/dL (6.4-8.2)
[2021-09-25] MEDS: OLANZapine 5 MG TABLET PO ONE (17:58)
[2021-09-25] MEDS: LORazepam 2 MG TABLET PO ONE (17:58)
[2021-09-26 05:35] VITALS: BP 116/70
== END 2021-09-26 05:47 | disposition home or self-care (01) ==
LOC: EMS 17:18
DX: F20.9 Schizophrenia, unspecified (principal); F32.A Depression, unspecified; F19.10 Other psychoactive substance abuse, uncomplicated; F41.9 Anxiety disorder, unspecified; E78.00 Pure hypercholesterolemia, unspecified; I10 Essential (primary) hypertension; F17.210 Nicotine dependence, cigarettes, uncomplicated; F12.90 Cannabis use, unspecified, uncomplicated; F15.90 Other stimulant use, unspecified, uncomplicated; Z98.890 Other specified postprocedural states; Z88.8 Allergy status to other drugs, medicaments and biological substances
CPT/HCPCS: 36415; 80053; 85025; 99283; G0480

== ENCOUNTER 2022-05-07 14:12 | Emergency (ER) | payer MEDICAID, OTHER ==
[~2022-05-07] VITALS: Ht 165.1 cm; Wt 62.0 kg
[2022-05-07] MEDS ORDERED: QUET25TA PO (14:43)
[2022-05-07] MEDS ORDERED: METF-1211 PO (14:43)
[2022-05-07] MEDS ORDERED: OLAN2.5T29 PO (14:43)
[2022-05-07] MEDS ORDERED: OLANZapine 5 MG TABLET PO ONE (14:45)
[2022-05-07 15:03] LABS: BASOPHILS % (AUTO) 0.2 % (0.0-2.0); EOSINOPHILS % (AUTO) 1.2 % (1.0-6.0); HEMATOCRIT 37.6 % (41-53); HEMOGLOBIN 12.1 g/dL (13.5-17.5); LYMPHOCYTES # (AUTO) 1.8 K/uL (1.0-4.8); LYMPHOCYTES % (AUTO) 34.3 % (22.0-44.0); MEAN CORPUSCULAR HEMOGLOBIN 27.2 pg (26.0-34.0); MEAN CORPUSCULAR HGB CONC 32.1 G/dL (31.0-37.0); MEAN CORPUSCULAR VOLUME 85 fL (80-100); MONOCYTES # (AUTO) 0.5 K/uL (0.1-1.0); MONOCYTES % (AUTO) 9.1 % (2.0-9.0); NEUTROPHILS # (AUTO) 2.9 K/uL (1.8-7.7); NEUTROPHILS % (AUTO) 55.2 % (40.0-70.0); PLATELET COUNT (AUTO) 218 K/uL (150-450); RED BLOOD CELL COUNT(AUTO) 4.43 MIL/uL (4.50-5.90); RED CELL DISTRIBUTION WIDTH 13.1 % (11.5-14.5)
[2022-05-07 15:06] LABS: ANION GAP 16 mmol/L (8-16); CALCIUM, TOTAL 8.9 mg/dL (8.8-10.5); CARBON DIOXIDE 21 mmol/L (22-29); CHLORIDE 103 mmol/L (98-107); CREATININE 0.93 mg/dL (0.60-1.30); GLOMERULAR FILTR. RATE CALC > 60 mL/min (>60); GLUCOSE,RANDOM 125 mg/dL (70-110); POTASSIUM 3.1 mmol/L (3.5-5.1); SODIUM SERUM 140 mmol/L (136-145); UREA NITROGEN, BLOOD 28 mg/dL (7-18)
[2022-05-07 15:12] LABS: ALANINE AMINOTRANSFERASE 29 U/L (12-78); ALBUMIN 4.3 g/dL (3.4-5.0); ALKALINE PHOSPHATASE 97 U/L (46-116); ASPARTATE AMINOTRANSFERASE 41 U/L (15-37); BILIRUBIN,TOTAL 0.9 mg/dL (0.1-1.0); TOTAL PROTEIN, SERUM 8.5 g/dL (6.4-8.2)
[2022-05-07] MEDS ORDERED: QUET200T30 PO (15:35)
[2022-05-07] MEDS ORDERED: OLAN10 PO (15:35)
[2022-05-07] MEDS ORDERED: OLAN5TAB77 PO (15:35)
[2022-05-07] MEDS ORDERED: METF-446 PO (15:35)
[2022-05-07 15:39] VITALS: BP 129/75
[2022-05-07] MEDS ORDERED: POTASSIUM CHLORIDE 20 MEQ ER TABLET PO ONE (15:45)
[2022-05-07 16:07] LABS: AMPHET/METH SCREEN,URINE POSITIVE (NEGATIVE); BARBITURATE SCREEN, URINE NEGATIVE (NEGATIVE); BENZODIAZEPINES SCREEN,URINE NEGATIVE (NEGATIVE); CANNABINOID SCREEN,URINE NEGATIVE (NEGATIVE); COCAINE SCREEN,URINE NEGATIVE (NEGATIVE); METHADONE SCREEN, URINE NEGATIVE (NEGATIVE); OPIATE SCREEN,URINE NEGATIVE (NEGATIVE); PHENCYCLIDINE SCREEN,URINE NEGATIVE (NEGATIVE)
== END 2022-05-07 17:25 | disposition home or self-care (01) ==
LOC: EMS 14:16
DX: F20.9 Schizophrenia, unspecified (principal); E11.9 Type 2 diabetes mellitus without complications; E78.00 Pure hypercholesterolemia, unspecified; F12.90 Cannabis use, unspecified, uncomplicated; F15.90 Other stimulant use, unspecified, uncomplicated; F17.210 Nicotine dependence, cigarettes, uncomplicated; F32.A Depression, unspecified; I10 Essential (primary) hypertension; Z88.8 Allergy status to other drugs, medicaments and biological substances; Z59.00 Homelessness unspecified
CPT/HCPCS: 99284; 80053; 85025; 36415; 80307 ×2; G0480

== ENCOUNTER 2022-08-04 13:52 | Inpatient (IN) | payer MEDICAID, OTHER ==
[~2022-08-04] VITALS: Ht 175.3 cm; Wt 75.0 kg
[~2022-08-04 13:52] MED LIST changes: +METF-446 PO; +OLAN10 PO; +OLAN5TAB77 PO; -OLAN7.5T22 PO; +QUET200T30 PO
[2022-08-04 15:02] LABS: BASOPHILS % (AUTO) 0.4 % (0.0-2.0); EOSINOPHILS % (AUTO) 1.4 % (1.0-6.0); HEMATOCRIT 37.6 % (41-53); HEMOGLOBIN 12.6 g/dL (13.5-17.5); MEAN CORPUSCULAR HEMOGLOBIN 28.4 pg (26.0-34.0); MEAN CORPUSCULAR HGB CONC 33.4 G/dL (31.0-37.0); MEAN CORPUSCULAR VOLUME 85 fL (80-100); MONOCYTES # (AUTO) 0.4 K/uL (0.1-1.0); MONOCYTES % (AUTO) 8.4 % (2.0-9.0); NEUTROPHILS # (AUTO) 2.1 K/uL (1.8-7.7); NEUTROPHILS % (AUTO) 45.8 % (40.0-70.0); PLATELET COUNT (AUTO) 289 K/uL (150-450); RED BLOOD CELL COUNT(AUTO) 4.43 MIL/uL (4.50-5.90); RED CELL DISTRIBUTION WIDTH 14.8 % (11.5-14.5)
[2022-08-04 15:23] LABS: ANION GAP 8 mmol/L (8-16); CALCIUM, TOTAL 9.1 mg/dL (8.8-10.5); CARBON DIOXIDE 28 mmol/L (22-29); CHLORIDE 104 mmol/L (98-107); CREATININE 0.82 mg/dL (0.60-1.30); GLOMERULAR FILTR. RATE CALC > 60 mL/min (>60); GLUCOSE,RANDOM 138 mg/dL (70-110); POTASSIUM 3.1 mmol/L (3.5-5.1); SODIUM SERUM 140 mmol/L (136-145); UREA NITROGEN, BLOOD 20 mg/dL (7-18)
[2022-08-04 15:30] LABS: ALANINE AMINOTRANSFERASE 21 U/L (12-78); ALBUMIN 4.2 g/dL (3.4-5.0); ALKALINE PHOSPHATASE 97 U/L (46-116); ASPARTATE AMINOTRANSFERASE 26 U/L (15-37); BILIRUBIN,TOTAL 0.5 mg/dL (0.1-1.0); TOTAL PROTEIN, SERUM 7.9 g/dL (6.4-8.2)
[2022-08-04 16:13] LABS: COVID AG,FIA SOURCE NASAL SWAB
[2022-08-04] MEDS ORDERED: DiphenhydrAMINE HCL 50 MG/ML VIAL IM ONE (16:15)
[2022-08-04] MEDS ORDERED: HALOPERIDOL LACTATE 5 MG/ML VIAL IM ONE (16:15)
[2022-08-04] MEDS ORDERED: LORazepam 2 MG/ML VIAL IM ONE (16:15)
[2022-08-04] MEDS ORDERED: ZOLPIDEM TARTRATE 10 MG TABLET PO PRN (19:30)
[2022-08-04] MEDS ORDERED: POTASSIUM CHLORIDE 20 MEQ ER TABLET PO ONE (22:15)
[2022-08-04 23:39] VITALS: BP 121/61
[2022-08-05] MEDS ORDERED: -PHARMACY VACCINE NOTE- MISC ONE (05:00)
[2022-08-05 05:56] LABS: GLUCOMETER DEV NAME(LOC) BV3N.; GLUCOSE,POINT OF CARE 83 MG/DL (70-110)
[2022-08-05 07:47] LABS: HEMOGLOBIN A1C 6.6 % (3.8-5.6)
[2022-08-05 08:01] LABS: FREE T4 (FREE THYROXINE) 1.1 ng/dL (0.76-1.46); POTASSIUM 3.3 mmol/L (3.5-5.1); THYROID STIMULATING HORMONE 0.55 uIU/mL (0.36-3.74)
[2022-08-05 09:00] VITALS: BP 116/73
[2022-08-05] MEDS ORDERED: ONDANSETRON HCL 4 MG TABLET PO PRN (09:00)
[2022-08-05] MEDS ORDERED: DOCUSATE SODIUM 100 MG CAPSULE PO PRN (09:00)
[2022-08-05] MEDS ORDERED: MAG HYDROX/AL HYDROX/SIMETH ES 30 ML SUSPENSION UDCUP PO PRN (09:00)
[2022-08-05] MEDS ORDERED: ALBUTEROL SULFATE HFA 90 MCG/PUFF 8 GM INHALER IH PRN (09:00)
[2022-08-05] MEDS ORDERED: CloNIDine HCL 0.1 MG TABLET PO PRN (09:00)
[2022-08-05] MEDS ORDERED: LOPERAMIDE HCL 2 MG CAPSULE PO PRN (09:00)
[2022-08-05] MEDS ORDERED: IBUPROFEN 400 MG TABLET PO PRN (09:00)
[2022-08-05] MEDS ORDERED: PETROLATUM,WHITE 28 GM JELLY TP PRN (09:00)
[2022-08-05] MEDS ORDERED: NICOTINE 14 MG/24 HOUR PATCH TD PRN (09:00)
[2022-08-05] MEDS ORDERED: ACETAMINOPHEN 325 MG TABLET PO PRN (09:00)
[2022-08-05] MEDS ORDERED: GuaiFENesin/D-METHORPHAN [SUGAR-FREE] 200-20MG/10 ML SYRUP UDCUP PO PRN (09:00)
[2022-08-05] MEDS ORDERED: MAGNESIUM HYDROXIDE SUSPENSION 30 ML UDCUP PO PRN (09:00)
[2022-08-05] MEDS: OLANZapine 5 MG TABLET PO SCH (12:00)
[2022-08-05] MEDS: OLANZapine 5 MG RAPDIS TABLET PO PRN (13:34)
[2022-08-05 20:54] VITALS: BP 102/61
[2022-08-05] MEDS: OLANZapine 10 MG TABLET PO SCH (21:05)
[2022-08-06] MEDS: OLANZapine 5 MG RAPDIS TABLET PO PRN ×2 (08:26→09:04)
[2022-08-06] MEDS: OLANZapine 5 MG TABLET PO SCH (09:04)
[2022-08-06] MEDS: OLANZapine 10 MG TABLET PO SCH (20:39)
[2022-08-06 21:11] VITALS: BP 107/60
[2022-08-07] MEDS: OLANZapine 5 MG TABLET PO SCH (09:02)
[2022-08-07 10:19] VITALS: BP 106/60
[2022-08-07 20:00] VITALS: BP 111/60
[2022-08-07] MEDS: OLANZapine 10 MG TABLET PO SCH (20:36)
[2022-08-08 08:21] VITALS: BP 105/56
[2022-08-08] MEDS: OLANZapine 5 MG TABLET PO SCH (08:24)
[2022-08-08] MEDS: LORazepam 2 MG TABLET PO PRN (18:43)
[2022-08-08 20:00] VITALS: BP 101/68
[2022-08-08] MEDS: OLANZapine 10 MG TABLET PO SCH (20:41)
[2022-08-09] MEDS: OLANZapine 5 MG TABLET PO SCH (08:31)
[2022-08-09 08:39] VITALS: BP 102/65
[2022-08-09] MEDS: LORazepam 2 MG TABLET PO PRN (18:02)
[2022-08-09 20:48] VITALS: BP 135/61
[2022-08-09] MEDS: OLANZapine 10 MG TABLET PO SCH (21:14)
[2022-08-10] MEDS: OLANZapine 5 MG TABLET PO SCH (08:42)
[2022-08-10 08:55] VITALS: BP 116/66
== END 2022-08-10 14:50 | disposition home or self-care (01) | DRG 750 ==
LOC: EMS 13:53 → B3A 21:30 → B2S 08-07 19:00
PROVIDERS: ADMIT Psychiatry & Neurology Psychiatry; ATTEND Psychiatry & Neurology Psychiatry
DX: F20.0 Paranoid schizophrenia (principal); D64.9 Anemia, unspecified; E11.65 Type 2 diabetes mellitus with hyperglycemia; E78.00 Pure hypercholesterolemia, unspecified; E87.6 Hypokalemia; I10 Essential (primary) hypertension; F32.A Depression, unspecified; Z20.822 Contact with and (suspected) exposure to COVID-19; F41.9 Anxiety disorder, unspecified; Z87.891 Personal history of nicotine dependence; Z88.8 Allergy status to other drugs, medicaments and biological substances; Z59.00 Homelessness unspecified; Z79.84 Long term (current) use of oral hypoglycemic drugs; Z79.899 Other long term (current) drug therapy
CPT/HCPCS: 80053; 80061; 82962; 83036; 84132; 84439; 84443; 85025; 99285; G0480; J1200; J1630; J2060

== ENCOUNTER 2022-08-25 12:50 | Inpatient (IN) | payer MEDICAID, OTHER ==
[~2022-08-25] VITALS: Ht 165.1 cm; Wt 71.5 kg
[~2022-08-25 12:50] MED LIST changes: -METF-446 PO; +OLAN10TA74 PO; +OLAN5TAB52 PO; -QUET200T30 PO
[2022-08-25] MEDS ORDERED: METF-446 PO (13:01)
[2022-08-25 13:43] LABS: BASOPHILS % (AUTO) 0.5 % (0.0-2.0); EOSINOPHILS % (AUTO) 0.9 % (1.0-6.0); HEMATOCRIT 36.3 % (41-53); HEMOGLOBIN 11.9 g/dL (13.5-17.5); LYMPHOCYTES # (AUTO) 1.6 K/uL (1.0-4.8); LYMPHOCYTES % (AUTO) 35.6 % (22.0-44.0); MEAN CORPUSCULAR HGB CONC 32.8 G/dL (31.0-37.0); MEAN CORPUSCULAR VOLUME 85 fL (80-100); MONOCYTES # (AUTO) 0.4 K/uL (0.1-1.0); MONOCYTES % (AUTO) 8.2 % (2.0-9.0); NEUTROPHILS # (AUTO) 2.5 K/uL (1.8-7.7); NEUTROPHILS % (AUTO) 54.8 % (40.0-70.0); PLATELET COUNT (AUTO) 228 K/uL (150-450); RED BLOOD CELL COUNT(AUTO) 4.26 MIL/uL (4.50-5.90); RED CELL DISTRIBUTION WIDTH 14.3 % (11.5-14.5)
[2022-08-25 13:58] LABS: ANION GAP 12 mmol/L (8-16); CALCIUM, TOTAL 9.1 mg/dL (8.8-10.5); CARBON DIOXIDE 27 mmol/L (22-29); CHLORIDE 104 mmol/L (98-107); CREATININE 0.78 mg/dL (0.60-1.30); GLOMERULAR FILTR. RATE CALC > 60 mL/min (>60); GLUCOSE,RANDOM 92 mg/dL (70-110); POTASSIUM 3.7 mmol/L (3.5-5.1); SODIUM SERUM 143 mmol/L (136-145)
[2022-08-25 14:04] LABS: ALANINE AMINOTRANSFERASE 37 U/L (12-78); ALBUMIN 4.2 g/dL (3.4-5.0); ALKALINE PHOSPHATASE 85 U/L (46-116); ASPARTATE AMINOTRANSFERASE 31 U/L (15-37); BILIRUBIN,TOTAL 0.4 mg/dL (0.1-1.0); TOTAL PROTEIN, SERUM 8.2 g/dL (6.4-8.2)
[2022-08-25] MEDS ORDERED: OLANZapine 5 MG RAPDIS TABLET PO ONE (16:30)
[2022-08-25] MEDS ORDERED: OLANZapine 5 MG RAPDIS TABLET PO PRN (17:30)
[2022-08-25 17:32] LABS: COVID AG,FIA SOURCE NASAL SWAB
[2022-08-25 23:02] VITALS: BP 125/61
[2022-08-25] MEDS: ZOLPIDEM TARTRATE 10 MG TABLET PO PRN (23:04)
[2022-08-25] MEDS: LORazepam 2 MG TABLET PO PRN (23:04)
[2022-08-25 23:06] VITALS: BP 125/61
[2022-08-26] MEDS ORDERED: IBUPROFEN 400 MG TABLET PO PRN (07:30)
[2022-08-26] MEDS ORDERED: GuaiFENesin/D-METHORPHAN [SUGAR-FREE] 200-20MG/10 ML SYRUP UDCUP PO PRN (07:30)
[2022-08-26] MEDS ORDERED: LOPERAMIDE HCL 2 MG CAPSULE PO PRN (07:30)
[2022-08-26] MEDS ORDERED: PETROLATUM,WHITE 28 GM JELLY TP PRN (07:30)
[2022-08-26] MEDS ORDERED: NICOTINE 14 MG/24 HOUR PATCH TD PRN (07:30)
[2022-08-26] MEDS ORDERED: DOCUSATE SODIUM 100 MG CAPSULE PO PRN (07:30)
[2022-08-26] MEDS ORDERED: MAGNESIUM HYDROXIDE SUSPENSION 30 ML UDCUP PO PRN (07:30)
[2022-08-26] MEDS ORDERED: MAG HYDROX/AL HYDROX/SIMETH ES 30 ML SUSPENSION UDCUP PO PRN (07:30)
[2022-08-26] MEDS ORDERED: CloNIDine HCL 0.1 MG TABLET PO PRN (07:30)
[2022-08-26] MEDS ORDERED: ACETAMINOPHEN 325 MG TABLET PO PRN (07:30)
[2022-08-26] MEDS ORDERED: ONDANSETRON HCL 4 MG TABLET PO PRN (07:30)
[2022-08-26] MEDS ORDERED: ALBUTEROL SULFATE HFA 90 MCG/PUFF 8 GM INHALER IH PRN (07:30)
[2022-08-26 08:00] VITALS: BP 103/70
[2022-08-26] MEDS: OLANZapine 5 MG TABLET PO SCH (18:22)
[2022-08-26] MEDS: OLANZapine 10 MG TABLET PO SCH (20:44)
[2022-08-27 00:09] VITALS: BP 101/60
[2022-08-27 08:00] VITALS: BP 100/65
[2022-08-27] MEDS: OLANZapine 5 MG TABLET PO SCH (09:19)
[2022-08-27] MEDS: OLANZapine 10 MG TABLET PO SCH (20:05)
[2022-08-27 20:42] VITALS: BP 90/65
[2022-08-28] MEDS: OLANZapine 5 MG TABLET PO SCH (08:22)
[2022-08-28 09:03] VITALS: BP 95/60
[2022-08-28] MEDS: OLANZapine 10 MG TABLET PO SCH (20:05)
[2022-08-28] MEDS: LORazepam 2 MG TABLET PO PRN (21:56)
[2022-08-29 08:40] VITALS: BP 100/66
[2022-08-29] MEDS: OLANZapine 5 MG TABLET PO SCH (11:01)
[2022-08-29] MEDS: OLANZapine 10 MG TABLET PO SCH (20:15)
[2022-08-30] MEDS: OLANZapine 5 MG TABLET PO SCH (08:02)
[2022-08-30 09:25] VITALS: BP 115/69
[2022-08-30] MEDS: OLANZapine 10 MG TABLET PO SCH (20:40)
[2022-08-30] MEDS: LORazepam 2 MG TABLET PO PRN (21:44)
[2022-08-30] MEDS: ZOLPIDEM TARTRATE 10 MG TABLET PO PRN (21:44)
[2022-08-30 22:25] VITALS: BP 110/70
[2022-08-31] MEDS: OLANZapine 5 MG TABLET PO SCH (08:09)
[2022-08-31 09:00] VITALS: BP 90/53
[2022-08-31] MEDS ORDERED: THIAMINE 100 MG TABLET PO SCH (09:00)
[2022-08-31] MEDS ORDERED: FOLIC ACID 1 MG TABLET PO SCH (09:00)
[2022-08-31] MEDS ORDERED: MULTIVITAMINS WITH MINERALS, THERAPEUTIC TABLET PO SCH (09:00)
[2022-08-31] MEDS: LORazepam 2 MG TABLET PO PRN ×2 (16:57→19:55)
[2022-08-31] MEDS: OLANZapine 10 MG TABLET PO SCH (20:30)
[2022-08-31 21:08] VITALS: BP 112/62
[2022-08-31] MEDS: ZOLPIDEM TARTRATE 10 MG TABLET PO PRN (21:14)
[2022-09-01] MEDS: OLANZapine 5 MG TABLET PO SCH (08:57)
[2022-09-01 09:23] VITALS: BP 117/52
[2022-09-01] MEDS: LORazepam 2 MG TABLET PO PRN (18:36)
[2022-09-01] MEDS: OLANZapine 10 MG TABLET PO SCH (20:33)
[2022-09-01 21:20] VITALS: BP 107/62
[2022-09-02 08:00] VITALS: BP 114/72
[2022-09-02] MEDS: OLANZapine 5 MG TABLET PO SCH (08:12)
[2022-09-02] MEDS: LORazepam 2 MG TABLET PO PRN (18:55)
[2022-09-02] MEDS: OLANZapine 10 MG TABLET PO SCH (20:26)
[2022-09-02 20:33] VITALS: BP 106/68
[2022-09-02] MEDS: ZOLPIDEM TARTRATE 10 MG TABLET PO PRN (21:33)
[2022-09-03 08:56] VITALS: BP 115/79
[2022-09-03] MEDS: OLANZapine 5 MG TABLET PO SCH (09:25)
[2022-09-03] MEDS: LORazepam 2 MG TABLET PO PRN ×2 (09:26→18:20)
[2022-09-03] MEDS: OLANZapine 10 MG TABLET PO SCH (21:57)
[2022-09-04] MEDS: OLANZapine 5 MG TABLET PO SCH (08:28)
[2022-09-04 09:41] VITALS: BP 121/67
[2022-09-04 20:48] VITALS: BP 117/80
[2022-09-04] MEDS: OLANZapine 10 MG TABLET PO SCH (21:03)
[2022-09-05 08:41] VITALS: BP 107/59
[2022-09-05] MEDS: OLANZapine 5 MG TABLET PO SCH (09:21)
[2022-09-05] MEDS ORDERED: OLAN10 PO (19:28)
[2022-09-05] MEDS ORDERED: THIA100T80 PO (19:28)
[2022-09-05] MEDS ORDERED: OLAN5TAB52 PO (19:28)
== END 2022-09-05 09:20 | disposition home or self-care (01) | DRG 750 ==
LOC: EMS 12:50 → 3EI 19:09
PROVIDERS: ADMIT Psychiatry & Neurology Psychiatry; ATTEND Psychiatry & Neurology Psychiatry
DX: F20.0 Paranoid schizophrenia (principal); E11.9 Type 2 diabetes mellitus without complications; R45.851 Suicidal ideations; E78.00 Pure hypercholesterolemia, unspecified; I10 Essential (primary) hypertension; F41.9 Anxiety disorder, unspecified; Z20.822 Contact with and (suspected) exposure to COVID-19; F10.10 Alcohol abuse, uncomplicated; F15.10 Other stimulant abuse, uncomplicated; F17.210 Nicotine dependence, cigarettes, uncomplicated; F32.A Depression, unspecified; Z88.8 Allergy status to other drugs, medicaments and biological substances; Z79.84 Long term (current) use of oral hypoglycemic drugs; Z79.899 Other long term (current) drug therapy; Z59.00 Homelessness unspecified; Z81.8 Family history of other mental and behavioral disorders
CPT/HCPCS: 80053; 85025; 87081; 99285; G0480

== ENCOUNTER 2022-10-08 19:09 | Inpatient (IN) | payer MEDICAID, OTHER ==
[~2022-10-08] VITALS: Ht 165.1 cm; Wt 71.0 kg
[~2022-10-08 19:09] MED LIST changes: +METF-446 PO; -OLAN10TA74 PO; +THIA100T80 PO
[2022-10-08 21:38] LABS: BASOPHILS % (AUTO) 0.3 % (0.0-2.0); EOSINOPHILS % (AUTO) 1.3 % (1.0-6.0); HEMATOCRIT 38.5 % (41-53); HEMOGLOBIN 12.7 g/dL (13.5-17.5); LYMPHOCYTES # (AUTO) 2.1 K/uL (1.0-4.8); LYMPHOCYTES % (AUTO) 47.2 % (22.0-44.0); MEAN CORPUSCULAR HEMOGLOBIN 28.3 pg (26.0-34.0); MEAN CORPUSCULAR HGB CONC 33.1 G/dL (31.0-37.0); MEAN CORPUSCULAR VOLUME 86 fL (80-100); MONOCYTES # (AUTO) 0.4 K/uL (0.1-1.0); MONOCYTES % (AUTO) 9.9 % (2.0-9.0); NEUTROPHILS # (AUTO) 1.8 K/uL (1.8-7.7); NEUTROPHILS % (AUTO) 41.3 % (40.0-70.0); PLATELET COUNT (AUTO) 236 K/uL (150-450)
[2022-10-08 21:53] LABS: ALANINE AMINOTRANSFERASE 25 U/L (12-78); ALBUMIN 4.4 g/dL (3.4-5.0); ALKALINE PHOSPHATASE 96 U/L (46-116); ANION GAP 18 mmol/L (8-16); ASPARTATE AMINOTRANSFERASE 42 U/L (15-37); BILIRUBIN,TOTAL 0.9 mg/dL (0.1-1.0); CALCIUM, TOTAL 9.3 mg/dL (8.8-10.5); CARBON DIOXIDE 23 mmol/L (22-29); CHLORIDE 99 mmol/L (98-107); CREATININE 1.03 mg/dL (0.60-1.30); GLOMERULAR FILTR. RATE CALC > 60 mL/min (>60); GLUCOSE,RANDOM 97 mg/dL (70-110); SODIUM SERUM 140 mmol/L (136-145); TOTAL PROTEIN, SERUM 8.5 g/dL (6.4-8.2)
[2022-10-08] MEDS ORDERED: POTASSIUM CHLORIDE 20 MEQ ER TABLET PO ONE (22:15)
[2022-10-08] MEDS ORDERED: OLANZapine 5 MG TABLET PO PRN (22:30)
[2022-10-08 23:01] LABS: COVID AG,FIA SOURCE NASOPHARYNGEAL
[2022-10-08] MEDS: ZOLPIDEM TARTRATE 10 MG TABLET PO PRN (23:18)
[2022-10-08] MEDS: LORazepam 2 MG TABLET PO PRN (23:19)
[2022-10-08 23:45] VITALS: BP 146/75; PULSE 79; RESP 18; TEMP 98; O2SAT 97
[2022-10-09] MEDS ORDERED: MAG HYDROX/AL HYDROX/SIMETH ES 30 ML SUSPENSION UDCUP PO PRN (06:45)
[2022-10-09] MEDS ORDERED: IBUPROFEN 400 MG TABLET PO PRN (06:45)
[2022-10-09] MEDS ORDERED: ONDANSETRON HCL 4 MG TABLET PO PRN (06:45)
[2022-10-09] MEDS ORDERED: ACETAMINOPHEN 325 MG TABLET PO PRN (06:45)
[2022-10-09] MEDS ORDERED: PETROLATUM,WHITE 28 GM JELLY TP PRN (06:45)
[2022-10-09] MEDS ORDERED: CloNIDine HCL 0.1 MG TABLET PO PRN (06:45)
[2022-10-09] MEDS ORDERED: LOPERAMIDE HCL 2 MG CAPSULE PO PRN (06:45)
[2022-10-09] MEDS ORDERED: ALBUTEROL SULFATE HFA 90 MCG/PUFF 8 GM INHALER IH PRN (06:45)
[2022-10-09] MEDS ORDERED: DOCUSATE SODIUM 100 MG CAPSULE PO PRN (06:45)
[2022-10-09] MEDS ORDERED: NICOTINE 14 MG/24 HOUR PATCH TD PRN (06:45)
[2022-10-09] MEDS ORDERED: GuaiFENesin/D-METHORPHAN [SUGAR-FREE] 200-20MG/10 ML SYRUP UDCUP PO PRN (06:45)
[2022-10-09] MEDS ORDERED: MAGNESIUM HYDROXIDE SUSPENSION 30 ML UDCUP PO PRN (06:45)
[2022-10-09 08:47] VITALS: RESP 18
[2022-10-09] MEDS ORDERED: POTASSIUM CHLORIDE 10% 40 MEQ/30 ML LIQUID UDCUP PO ONE (13:15)
[2022-10-09 20:11] VITALS: BP 122/71; PULSE 82; RESP 18; TEMP 97.2
[2022-10-09] MEDS: OLANZapine 10 MG TABLET PO SCH (20:30)
[2022-10-10 07:10] LABS: BASOPHILS % (AUTO) 0.3 % (0.0-2.0); HEMATOCRIT 40.7 % (41-53); HEMOGLOBIN 13.5 g/dL (13.5-17.5); LYMPHOCYTES % (AUTO) 61.5 % (22.0-44.0); MEAN CORPUSCULAR HEMOGLOBIN 28.7 pg (26.0-34.0); MEAN CORPUSCULAR HGB CONC 33.2 G/dL (31.0-37.0); MEAN CORPUSCULAR VOLUME 87 fL (80-100); MONOCYTES # (AUTO) 0.4 K/uL (0.1-1.0); MONOCYTES % (AUTO) 11.9 % (2.0-9.0); NEUTROPHILS # (AUTO) 0.8 K/uL (1.8-7.7); NEUTROPHILS % (AUTO) 23.3 % (40.0-70.0); PLATELET COUNT (AUTO) 227 K/uL (150-450); RED BLOOD CELL COUNT(AUTO) 4.69 MIL/uL (4.50-5.90)
[2022-10-10 07:37] LABS: ALANINE AMINOTRANSFERASE 24 U/L (12-78); ALBUMIN 3.8 g/dL (3.4-5.0); ALKALINE PHOSPHATASE 95 U/L (46-116); ANION GAP 12 mmol/L (8-16); ASPARTATE AMINOTRANSFERASE 41 U/L (15-37); BILIRUBIN,TOTAL 0.7 mg/dL (0.1-1.0); CALCIUM, TOTAL 9.3 mg/dL (8.8-10.5); CARBON DIOXIDE 23 mmol/L (22-29); CHLORIDE 103 mmol/L (98-107); CHOL/HDL RATIO 2.3 (4.2-7.3); CHOLESTEROL 218 mg/dL (131-200); CREATININE 0.85 mg/dL (0.60-1.30); GLOMERULAR FILTR. RATE CALC > 60 mL/min (>60); GLUCOSE,RANDOM 112 mg/dL (70-110); HDL CHOLESTEROL 96 mg/dL (40-60); LDL CHOL (CALC.) 111 mg/dL (0-130); POTASSIUM 3.8 mmol/L (3.5-5.1); SODIUM SERUM 138 mmol/L (136-145); THYROID STIMULATING HORMONE 0.36 uIU/mL (0.36-3.74); TRIGLYCERIDES 54 mg/dL (15-150)
[2022-10-10] MEDS: OLANZapine 5 MG TABLET PO SCH (08:26)
[2022-10-10 09:34] VITALS: BP 121/82; PULSE 60; RESP 18; TEMP 96.4; O2SAT 100
[2022-10-10] MEDS: OLANZapine 10 MG TABLET PO SCH (20:28)
[2022-10-10 21:06] VITALS: BP 106/56; PULSE 68; RESP 18; TEMP 97.7; O2SAT 100
[2022-10-11] MEDS: OLANZapine 5 MG TABLET PO SCH (08:31)
[2022-10-11 09:29] VITALS: BP 98/63; PULSE 62; RESP 18; TEMP 97.7; O2SAT 98
[2022-10-11 20:26] VITALS: BP 128/77; PULSE 76; RESP 18; TEMP 97.1; O2SAT 97
[2022-10-11] MEDS: OLANZapine 10 MG TABLET PO SCH (20:55)
[2022-10-12] MEDS: OLANZapine 5 MG TABLET PO SCH (08:20)
[2022-10-12 08:39] VITALS: BP 90/55; PULSE 76; RESP 18; TEMP 98.1; O2SAT 96
[2022-10-12] MEDS: OLANZapine 10 MG TABLET PO SCH (20:57)
[2022-10-12] MEDS: ZOLPIDEM TARTRATE 10 MG TABLET PO PRN (20:57)
[2022-10-12 21:09] VITALS: BP 112/64; PULSE 67; RESP 19; TEMP 97.8; O2SAT 100
[2022-10-13] MEDS: OLANZapine 5 MG TABLET PO SCH (08:29)
[2022-10-13 08:41] VITALS: BP 112/79; PULSE 70; RESP 17; TEMP 97.7; O2SAT 97
[2022-10-13] MEDS: LORazepam 2 MG TABLET PO PRN (16:08)
[2022-10-13 20:40] VITALS: BP 115/80; PULSE 71; RESP 18; TEMP 97.8; O2SAT 96
[2022-10-13] MEDS: OLANZapine 10 MG TABLET PO SCH (20:57)
[2022-10-14] MEDS: OLANZapine 5 MG TABLET PO SCH (08:33)
[2022-10-14 13:02] VITALS: BP 89/59; PULSE 61; RESP 18; TEMP 97.6
[2022-10-14] MEDS: ZOLPIDEM TARTRATE 10 MG TABLET PO PRN (21:21)
[2022-10-14] MEDS: OLANZapine 10 MG TABLET PO SCH (21:21)
[2022-10-14 22:50] VITALS: BP 118/73; PULSE 79; RESP 16; TEMP 97.9; O2SAT 98
[2022-10-15 08:00] VITALS: BP 113/56; PULSE 79; RESP 18; TEMP 98.1; O2SAT 96
[2022-10-15] MEDS: OLANZapine 5 MG TABLET PO SCH (08:47)
[2022-10-15 11:26] LABS: GLUCOMETER DEV NAME(LOC) 3E.C
[2022-10-15 21:26] VITALS: BP 102/65; PULSE 64; RESP 18; TEMP 96.7; O2SAT 98
[2022-10-15] MEDS: OLANZapine 10 MG TABLET PO SCH (21:30)
[2022-10-16 08:00] VITALS: BP 132/95; PULSE 97; RESP 18; TEMP 98; O2SAT 98
[2022-10-16] MEDS: OLANZapine 5 MG TABLET PO SCH (08:39)
[2022-10-16 20:49] VITALS: BP 124/71; PULSE 62; RESP 18; TEMP 97.6; O2SAT 97
[2022-10-16] MEDS: OLANZapine 10 MG TABLET PO SCH (21:23)
[2022-10-17 09:28] VITALS: BP 104/65; PULSE 73; RESP 19; TEMP 98.4; O2SAT 100
[2022-10-17] MEDS: OLANZapine 5 MG TABLET PO SCH (10:23)
[2022-10-17] MEDS ORDERED: OLAN10TA74 PO (19:29)
[2022-10-17] MEDS ORDERED: OLAN5TAB52 PO (19:29)
== END 2022-10-17 18:32 | disposition home or self-care (01) | DRG 750 ==
LOC: EMS 19:09 → 3EI 23:29
PROVIDERS: ADMIT Psychiatry & Neurology Child & Adolescent Psychiatry; ATTEND Psychiatry & Neurology Child & Adolescent Psychiatry
DX: F20.9 Schizophrenia, unspecified (principal); F20.0 Paranoid schizophrenia; E11.9 Type 2 diabetes mellitus without complications; E78.00 Pure hypercholesterolemia, unspecified; Z20.822 Contact with and (suspected) exposure to COVID-19; F41.9 Anxiety disorder, unspecified; I10 Essential (primary) hypertension; E87.6 Hypokalemia; F19.10 Other psychoactive substance abuse, uncomplicated; Z79.899 Other long term (current) drug therapy; Z88.8 Allergy status to other drugs, medicaments and biological substances; Z79.84 Long term (current) use of oral hypoglycemic drugs; Z87.891 Personal history of nicotine dependence
CPT/HCPCS: 80053; 80061; 82962; 83036; 84443; 85025; 99285; G0480

== ENCOUNTER 2022-11-15 07:13 | Emergency (ER) | payer MEDICAID, OTHER ==
[~2022-11-15] VITALS: Ht 165.1 cm; Wt 65.9 kg
[~2022-11-15 07:13] MED LIST changes: +OLAN10TA74 PO
[2022-11-15 08:18] LABS: COVID AG,FIA SOURCE NASAL SWAB
[2022-11-15 09:23] LABS: BASOPHILS % (AUTO) 0.2 % (0.0-2.0); EOSINOPHILS % (AUTO) 1.6 % (1.0-6.0); HEMOGLOBIN 11.7 g/dL (13.5-17.5); LYMPHOCYTES # (AUTO) 1.3 K/uL (1.0-4.8); LYMPHOCYTES % (AUTO) 46.4 % (22.0-44.0); MEAN CORPUSCULAR HEMOGLOBIN 28.7 pg (26.0-34.0); MEAN CORPUSCULAR HGB CONC 33.3 G/dL (31.0-37.0); MEAN CORPUSCULAR VOLUME 86 fL (80-100); MONOCYTES # (AUTO) 0.2 K/uL (0.1-1.0); NEUTROPHILS # (AUTO) 1.2 K/uL (1.8-7.7); NEUTROPHILS % (AUTO) 42.8 % (40.0-70.0); PLATELET COUNT (AUTO) 192 K/uL (150-450); RED BLOOD CELL COUNT(AUTO) 4.07 MIL/uL (4.50-5.90)
[2022-11-15 09:24] LABS: ANION GAP 9 mmol/L (8-16); CALCIUM, TOTAL 8.5 mg/dL (8.8-10.5); CARBON DIOXIDE 26 mmol/L (22-29); CHLORIDE 105 mmol/L (98-107); CREATININE 0.77 mg/dL (0.60-1.30); GLOMERULAR FILTR. RATE CALC > 60 mL/min (>60); GLUCOSE,RANDOM 92 mg/dL (70-110); POTASSIUM 3.2 mmol/L (3.5-5.1); SODIUM SERUM 140 mmol/L (136-145)
[2022-11-15 09:30] LABS: ALANINE AMINOTRANSFERASE 16 U/L (12-78); ALBUMIN 3.7 g/dL (3.4-5.0); ALKALINE PHOSPHATASE 74 U/L (46-116); ASPARTATE AMINOTRANSFERASE 20 U/L (15-37); BILIRUBIN,TOTAL 0.6 mg/dL (0.1-1.0); TOTAL PROTEIN, SERUM 7.2 g/dL (6.4-8.2)
[2022-11-15 09:47] VITALS: BP 120/61; PULSE 62; RESP 16; TEMP 98
[2022-11-15 13:35] LABS: AMPHET/METH SCREEN,URINE POSITIVE (NEGATIVE); BARBITURATE SCREEN, URINE NEGATIVE (NEGATIVE); BENZODIAZEPINES SCREEN,URINE NEGATIVE (NEGATIVE); CANNABINOID SCREEN,URINE NEGATIVE (NEGATIVE); COCAINE SCREEN,URINE NEGATIVE (NEGATIVE); METHADONE SCREEN, URINE NEGATIVE (NEGATIVE); OPIATE SCREEN,URINE NEGATIVE (NEGATIVE); PHENCYCLIDINE SCREEN,URINE NEGATIVE (NEGATIVE)
== END 2022-11-15 10:42 | disposition home or self-care (01) ==
LOC: EMS 07:14
DX: F25.1 Schizoaffective disorder, depressive type (principal); E87.6 Hypokalemia; F41.9 Anxiety disorder, unspecified; E11.9 Type 2 diabetes mellitus without complications; E78.00 Pure hypercholesterolemia, unspecified; I10 Essential (primary) hypertension; F17.210 Nicotine dependence, cigarettes, uncomplicated; F12.90 Cannabis use, unspecified, uncomplicated; F15.90 Other stimulant use, unspecified, uncomplicated; F14.90 Cocaine use, unspecified, uncomplicated; Z88.8 Allergy status to other drugs, medicaments and biological substances; Z20.822 Contact with and (suspected) exposure to COVID-19; Z59.00 Homelessness unspecified
CPT/HCPCS: 99284; 87426; 80053; 85025; 36415; 80307 ×2; G0480

== ENCOUNTER 2023-02-12 21:32 | Inpatient (IN) | payer MEDICAID, OTHER ==
[~2023-02-12] VITALS: Ht 165.1 cm; Wt 61.7 kg
[2023-02-12 22:19] LABS: HEMATOCRIT 35.1 % (41-53); HEMOGLOBIN 11.8 g/dL (13.5-17.5); MEAN CORPUSCULAR HEMOGLOBIN 29.1 pg (26.0-34.0); MEAN CORPUSCULAR HGB CONC 33.5 G/dL (31.0-37.0); MEAN CORPUSCULAR VOLUME 87 fL (80-100); PLATELET COUNT (AUTO) 237 K/uL (150-450); RED BLOOD CELL COUNT(AUTO) 4.04 MIL/uL (4.50-5.90); RED CELL DISTRIBUTION WIDTH 13.6 % (11.5-14.5)
[2023-02-12 22:21] LABS: BAND NEUTROPHILS % (MANUAL) 0 % (0-5)
[2023-02-12 22:22] LABS: LYMPHOCYTES % (MANUAL) 45 % (22-44); MONOCYTES % (MANUAL) 11 % (2-9); SEGMENTED NEUTROPHILS % 44 % (40-70); TOTAL CELLS COUNTED 100
[2023-02-12 22:30] LABS: ANION GAP 8 mmol/L (8-16); CALCIUM, TOTAL 8.9 mg/dL (8.8-10.5); CARBON DIOXIDE 30 mmol/L (22-29); CHLORIDE 101 mmol/L (98-107); CREATININE 0.91 mg/dL (0.60-1.30); GLOMERULAR FILTR. RATE CALC > 60 mL/min (>60); GLUCOSE,RANDOM 104 mg/dL (70-110); POTASSIUM 3.7 mmol/L (3.5-5.1); SODIUM SERUM 139 mmol/L (136-145); UREA NITROGEN, BLOOD 19 mg/dL (7-18)
[2023-02-12 22:36] LABS: ALANINE AMINOTRANSFERASE 43 U/L (12-78); ALBUMIN 3.8 g/dL (3.4-5.0); ALKALINE PHOSPHATASE 76 U/L (46-116); ASPARTATE AMINOTRANSFERASE 45 U/L (15-37); BILIRUBIN,TOTAL 0.5 mg/dL (0.1-1.0); TOTAL PROTEIN, SERUM 7.8 g/dL (6.4-8.2)
[2023-02-12 22:38] LABS: ALCOHOL, BLOOD (SERUM) < 3 mg/dL (0-10)
[2023-02-12] MEDS ORDERED: OLANZapine 5 MG RAPDIS TABLET PO PRN (23:00)
[2023-02-12] MEDS ORDERED: ZOLPIDEM TARTRATE 10 MG TABLET PO PRN (23:00)
[2023-02-13 00:47] LABS: COVID AG,FIA SOURCE NASAL SWAB
[2023-02-13 01:12] LABS: SARS-COV2 (COVID) ANTIGEN,FIA Negative (Negative)
[2023-02-13] MEDS: LORazepam 2 MG TABLET PO PRN (02:41)
[2023-02-13 02:52] VITALS: BP 137/71; PULSE 90; RESP 18; TEMP 98; O2SAT 99
[2023-02-13] MEDS ORDERED: INFLUENZA VIRUS VACCINE QVS 2023-24 (6MO+)/PF 60 MCG/0.5 ML SYRINGE IM. ONE (07:30)
[2023-02-13] MEDS ORDERED: MAG HYDROX/ALUMINUM HYD/SIMETH ES 30 ML SUSPENSION UDCUP PO PRN (08:00)
[2023-02-13] MEDS ORDERED: TUBERCULIN, PURIFIED PROTEIN DERIVATIVE 5 TU/0.1 ML SYRINGE ID ONE (08:00)
[2023-02-13] MEDS ORDERED: GuaiFENesin/D-METHORPHAN [SUGAR-FREE] 200-20MG/10 ML SYRUP UDCUP PO PRN (08:00)
[2023-02-13] MEDS ORDERED: LOPERAMIDE HCL 2 MG CAPSULE PO PRN (08:00)
[2023-02-13] MEDS ORDERED: HydrOXYzine PAMOATE 50 MG CAPSULE PO PRN (08:00)
[2023-02-13] MEDS ORDERED: ACETAMINOPHEN 325 MG TABLET PO PRN (08:00)
[2023-02-13] MEDS ORDERED: PROMETHAZINE HCL 25 MG TABLET PO PRN (08:00)
[2023-02-13] MEDS ORDERED: QUEtiapine FUMARATE 100 MG TABLET PO PRN (08:00)
[2023-02-13] MEDS ORDERED: MAGNESIUM HYDROXIDE SUSPENSION 30 ML UDCUP PO PRN (08:00)
[2023-02-13] MEDS: OMEGA-3/DHA/EPA/FISH OIL 1,000 MG CAPSULE PO SCH (08:45)
[2023-02-13] MEDS: FOLIC ACID 1 MG TABLET PO SCH (08:46)
[2023-02-13] MEDS: NALTREXONE HCL 50 MG TABLET PO SCH (08:46)
[2023-02-13] MEDS: MULTIVITAMINS WITH MINERALS, THERAPEUTIC TABLET PO SCH (08:46)
[2023-02-13] MEDS: THIAMINE 100 MG TABLET PO SCH ×2 (08:46→16:15)
[2023-02-13] MEDS ORDERED: GLUCAGON,HUMAN RECOMBINANT 1 MG VIAL IM PRN ×2 (13:15)
[2023-02-13] MEDS ORDERED: INSULIN LISPRO 100 UNITS/ML SQ PRN ×2 (13:15)
[2023-02-13 13:22] LABS: GLUCOMETER DEV NAME(LOC) BV3N.; GLUCOSE,POINT OF CARE 110 MG/DL (70-110)
[2023-02-13] MEDS ORDERED: OLANZapine 5 MG RAPDIS TABLET PO PRN (16:00)
[2023-02-13 18:31] LABS: GLUCOMETER DEV NAME(LOC) BV3N.; GLUCOSE,POINT OF CARE 116 MG/DL (70-110)
[2023-02-13 19:29] VITALS: RESP 20
[2023-02-13 20:14] VITALS: BP 128/68; PULSE 80; RESP 18; TEMP 97.8; O2SAT 98
[2023-02-13] MEDS: MELATONIN 5 MG TABLET PO SCH (20:46)
[2023-02-13] MEDS ORDERED: OLANZapine 5 MG RAPDIS TABLET PO SCH (21:00)
[2023-02-13] MEDS ORDERED: QUEtiapine FUMARATE 200 MG TABLET PO SCH (21:00)
[2023-02-14 06:47] LABS: GLUCOMETER DEV NAME(LOC) BV3N.; GLUCOSE,POINT OF CARE 122 MG/DL (70-110)
[2023-02-14 08:03] LABS: HEMOGLOBIN A1C 6.1 % (3.8-5.6)
[2023-02-14 08:13] LABS: CHOL/HDL RATIO 1.7 (4.2-7.3); FREE T4 (FREE THYROXINE) 1.09 ng/dL (0.76-1.46); THYROID STIMULATING HORMONE 1.07 uIU/mL (0.36-3.74)
[2023-02-14] MEDS: FLUoxetine HCL 20 MG CAPSULE PO SCH (08:21)
[2023-02-14] MEDS: FOLIC ACID 1 MG TABLET PO SCH (08:21)
[2023-02-14] MEDS: MULTIVITAMINS WITH MINERALS, THERAPEUTIC TABLET PO SCH (08:21)
[2023-02-14] MEDS: NALTREXONE HCL 50 MG TABLET PO SCH (08:21)
[2023-02-14] MEDS: THIAMINE 100 MG TABLET PO SCH ×2 (08:21→17:19)
[2023-02-14] MEDS: OMEGA-3/DHA/EPA/FISH OIL 1,000 MG CAPSULE PO SCH (08:21)
[2023-02-14 08:39] VITALS: BP 109/63; PULSE 69; RESP 17; TEMP 98; O2SAT 98
[2023-02-14 11:41] LABS: GLUCOMETER DEV NAME(LOC) BV3N.; GLUCOSE,POINT OF CARE 102 MG/DL (70-110)
[2023-02-14] MEDS: OLANZapine 10 MG RAPDIS TABLET PO SCH (20:40)
[2023-02-14] MEDS: LORazepam 2 MG TABLET PO PRN (20:40)
[2023-02-14] MEDS: MELATONIN 5 MG TABLET PO SCH (20:40)
[2023-02-14 21:11] LABS: GLUCOMETER DEV NAME(LOC) BV3N.; GLUCOSE,POINT OF CARE 104 MG/DL (70-110)
[2023-02-15 00:50] VITALS: BP 112/69; PULSE 79; RESP 17; TEMP 97.8
[2023-02-15 06:36] LABS: GLUCOMETER DEV NAME(LOC) BV3N.; GLUCOSE,POINT OF CARE 101 MG/DL (70-110)
[2023-02-15] MEDS: FLUoxetine HCL 20 MG CAPSULE PO SCH (08:02)
[2023-02-15] MEDS: NALTREXONE HCL 50 MG TABLET PO SCH (08:02)
[2023-02-15] MEDS: FOLIC ACID 1 MG TABLET PO SCH (08:02)
[2023-02-15] MEDS: MULTIVITAMINS WITH MINERALS, THERAPEUTIC TABLET PO SCH (08:02)
[2023-02-15] MEDS: OMEGA-3/DHA/EPA/FISH OIL 1,000 MG CAPSULE PO SCH (08:02)
[2023-02-15] MEDS: THIAMINE 100 MG TABLET PO SCH ×2 (08:02→17:13)
[2023-02-15 08:07] VITALS: BP 116/75; PULSE 60; RESP 17; TEMP 97.3; O2SAT 100
[2023-02-15 20:15] VITALS: BP 105/61; PULSE 84; RESP 18; TEMP 98; O2SAT 96
[2023-02-15] MEDS: MELATONIN 5 MG TABLET PO SCH (20:47)
[2023-02-15] MEDS: OLANZapine 10 MG RAPDIS TABLET PO SCH (20:47)
[2023-02-16] MEDS: FLUoxetine HCL 20 MG CAPSULE PO SCH (08:34)
[2023-02-16] MEDS: MULTIVITAMINS WITH MINERALS, THERAPEUTIC TABLET PO SCH (08:34)
[2023-02-16] MEDS: NALTREXONE HCL 50 MG TABLET PO SCH (08:34)
[2023-02-16] MEDS: THIAMINE 100 MG TABLET PO SCH ×2 (08:34→16:55)
[2023-02-16] MEDS: OMEGA-3/DHA/EPA/FISH OIL 1,000 MG CAPSULE PO SCH (08:34)
[2023-02-16 08:37] VITALS: BP 108/55; PULSE 60; RESP 17; TEMP 98.1; O2SAT 99
[2023-02-16] MEDS: FOLIC ACID 1 MG TABLET PO SCH (09:12)
[2023-02-16 20:23] VITALS: BP 127/78; PULSE 85; RESP 18; TEMP 97.6; O2SAT 97
[2023-02-16] MEDS: MELATONIN 5 MG TABLET PO SCH (20:36)
[2023-02-16] MEDS: OLANZapine 10 MG RAPDIS TABLET PO SCH (20:37)
[2023-02-17] MEDS: OMEGA-3/DHA/EPA/FISH OIL 1,000 MG CAPSULE PO SCH (08:56)
[2023-02-17] MEDS: MULTIVITAMINS WITH MINERALS, THERAPEUTIC TABLET PO SCH (08:56)
[2023-02-17] MEDS: NALTREXONE HCL 50 MG TABLET PO SCH (08:57)
[2023-02-17] MEDS: FOLIC ACID 1 MG TABLET PO SCH (08:57)
[2023-02-17] MEDS: FLUoxetine HCL 20 MG CAPSULE PO SCH (08:57)
[2023-02-17] MEDS: THIAMINE 100 MG TABLET PO SCH ×2 (08:57→16:03)
[2023-02-17 09:58] VITALS: BP 121/60; PULSE 67; RESP 16; TEMP 98; O2SAT 98
[2023-02-17] MEDS: LORazepam 2 MG TABLET PO PRN (15:58)
[2023-02-17 20:00] VITALS: BP 100/62; PULSE 84; RESP 16; TEMP 97.1; O2SAT 98
[2023-02-17] MEDS: MELATONIN 5 MG TABLET PO SCH (20:35)
[2023-02-17] MEDS: OLANZapine 10 MG RAPDIS TABLET PO SCH (20:36)
[2023-02-18] MEDS: OMEGA-3/DHA/EPA/FISH OIL 1,000 MG CAPSULE PO SCH (08:12)
[2023-02-18] MEDS: MULTIVITAMINS WITH MINERALS, THERAPEUTIC TABLET PO SCH (08:12)
[2023-02-18] MEDS: THIAMINE 100 MG TABLET PO SCH ×2 (08:12→16:48)
[2023-02-18] MEDS: FOLIC ACID 1 MG TABLET PO SCH (08:13)
[2023-02-18] MEDS: NALTREXONE HCL 50 MG TABLET PO SCH (08:13)
[2023-02-18] MEDS: FLUoxetine HCL 20 MG CAPSULE PO SCH (08:13)
[2023-02-18 14:47] VITALS: BP 105/63; PULSE 82; RESP 16; TEMP 98; O2SAT 97
[2023-02-18] MEDS: OLANZapine 10 MG RAPDIS TABLET PO SCH (20:40)
[2023-02-18] MEDS: MELATONIN 5 MG TABLET PO SCH (20:40)
[2023-02-18 20:49] VITALS: BP 101/55; PULSE 62; RESP 18; TEMP 97.7
[2023-02-19] MEDS: FLUoxetine HCL 20 MG CAPSULE PO SCH (08:13)
[2023-02-19] MEDS: FOLIC ACID 1 MG TABLET PO SCH (08:13)
[2023-02-19] MEDS: MULTIVITAMINS WITH MINERALS, THERAPEUTIC TABLET PO SCH (08:13)
[2023-02-19] MEDS: NALTREXONE HCL 50 MG TABLET PO SCH (08:14)
[2023-02-19] MEDS: OMEGA-3/DHA/EPA/FISH OIL 1,000 MG CAPSULE PO SCH (08:14)
[2023-02-19] MEDS: THIAMINE 100 MG TABLET PO SCH ×2 (08:14→17:17)
[2023-02-19 08:42] VITALS: BP 119/64; PULSE 63; RESP 17; TEMP 97.9; O2SAT 99
[2023-02-19] MEDS: LORazepam 2 MG TABLET PO PRN (17:17)
[2023-02-19 20:14] VITALS: BP 109/62; PULSE 76; RESP 18; TEMP 97.7; O2SAT 99
[2023-02-19] MEDS: MELATONIN 5 MG TABLET PO SCH (20:32)
[2023-02-19] MEDS: OLANZapine 10 MG RAPDIS TABLET PO SCH (20:32)
[2023-02-20 08:40] VITALS: BP 122/77; PULSE 81; RESP 17; TEMP 97.5; O2SAT 98
[2023-02-20] MEDS: FLUoxetine HCL 20 MG CAPSULE PO SCH (08:43)
[2023-02-20] MEDS: MULTIVITAMINS WITH MINERALS, THERAPEUTIC TABLET PO SCH (08:43)
[2023-02-20] MEDS: FOLIC ACID 1 MG TABLET PO SCH (08:44)
[2023-02-20] MEDS: OMEGA-3/DHA/EPA/FISH OIL 1,000 MG CAPSULE PO SCH (08:47)
[2023-02-20] MEDS: LORazepam 2 MG TABLET PO PRN ×3 (08:47→17:14)
[2023-02-20] MEDS: NALTREXONE HCL 50 MG TABLET PO SCH (09:04)
[2023-02-20] MEDS: THIAMINE 100 MG TABLET PO SCH ×2 (09:04→17:14)
[2023-02-20 20:31] VITALS: BP 118/72; PULSE 86; RESP 18; TEMP 97.6; O2SAT 97
[2023-02-20] MEDS: MELATONIN 5 MG TABLET PO SCH (20:42)
[2023-02-20] MEDS: OLANZapine 10 MG RAPDIS TABLET PO SCH (20:42)
[2023-02-21 08:38] VITALS: BP 105/55; PULSE 71; RESP 17; TEMP 97.7; O2SAT 98
[2023-02-21] MEDS: OMEGA-3/DHA/EPA/FISH OIL 1,000 MG CAPSULE PO SCH (09:43)
[2023-02-21] MEDS: NALTREXONE HCL 50 MG TABLET PO SCH (09:43)
[2023-02-21] MEDS: MULTIVITAMINS WITH MINERALS, THERAPEUTIC TABLET PO SCH (09:43)
[2023-02-21] MEDS: FLUoxetine HCL 20 MG CAPSULE PO SCH (09:43)
[2023-02-21] MEDS: THIAMINE 100 MG TABLET PO SCH ×2 (09:43→16:44)
[2023-02-21] MEDS: FOLIC ACID 1 MG TABLET PO SCH (09:43)
[2023-02-21] MEDS: LORazepam 2 MG TABLET PO PRN (16:44)
[2023-02-21 20:12] VITALS: BP 109/64; PULSE 86; RESP 18; TEMP 97.8; O2SAT 100
[2023-02-21] MEDS: OLANZapine 10 MG RAPDIS TABLET PO SCH (20:28)
[2023-02-21] MEDS: MELATONIN 5 MG TABLET PO SCH (20:28)
[2023-02-22 08:37] VITALS: BP 106/64; PULSE 75; RESP 17; TEMP 97.3; O2SAT 97
[2023-02-22] MEDS: FLUoxetine HCL 20 MG CAPSULE PO SCH (08:52)
[2023-02-22] MEDS: MULTIVITAMINS WITH MINERALS, THERAPEUTIC TABLET PO SCH (08:52)
[2023-02-22] MEDS: THIAMINE 100 MG TABLET PO SCH ×2 (08:53→17:43)
[2023-02-22] MEDS: LORazepam 2 MG TABLET PO PRN (08:53)
[2023-02-22] MEDS: NALTREXONE HCL 50 MG TABLET PO SCH (08:53)
[2023-02-22] MEDS: OMEGA-3/DHA/EPA/FISH OIL 1,000 MG CAPSULE PO SCH (08:53)
[2023-02-22] MEDS: FOLIC ACID 1 MG TABLET PO SCH (08:53)
[2023-02-22 20:24] VITALS: BP 96/60; PULSE 89; RESP 16; TEMP 97.7; O2SAT 99
[2023-02-22] MEDS: OLANZapine 10 MG RAPDIS TABLET PO SCH (20:30)
[2023-02-22] MEDS: MELATONIN 5 MG TABLET PO SCH (20:30)
[2023-02-23 08:10] VITALS: BP 101/59; PULSE 84; RESP 18; TEMP 97.8; O2SAT 99
[2023-02-23] MEDS: OMEGA-3/DHA/EPA/FISH OIL 1,000 MG CAPSULE PO SCH (08:30)
[2023-02-23] MEDS: MULTIVITAMINS WITH MINERALS, THERAPEUTIC TABLET PO SCH (08:31)
[2023-02-23] MEDS: NALTREXONE HCL 50 MG TABLET PO SCH (08:31)
[2023-02-23] MEDS: FLUoxetine HCL 20 MG CAPSULE PO SCH (08:31)
[2023-02-23] MEDS ORDERED: NALT50TA PO (10:32)
[2023-02-23] MEDS ORDERED: MELA5TAB40 PO (10:32)
[2023-02-23] MEDS ORDERED: OLAN10TA26 PO (10:32)
[2023-02-23] MEDS ORDERED: OMEG-135 PO (10:32)
[2023-02-23] MEDS ORDERED: FLUO20CA36 PO (10:32)
== END 2023-02-23 16:18 | disposition home or self-care (01) | DRG 750 ==
LOC: EMS 21:33 → B3A 02-13 00:13
PROVIDERS: ADMIT Psychiatry & Neurology Psychiatry; ATTEND Psychiatry & Neurology Psychiatry
DX: F25.9 Schizoaffective disorder, unspecified (principal); E11.9 Type 2 diabetes mellitus without complications; E78.00 Pure hypercholesterolemia, unspecified; F41.9 Anxiety disorder, unspecified; F32.A Depression, unspecified; I10 Essential (primary) hypertension; F10.20 Alcohol dependence, uncomplicated; F12.20 Cannabis dependence, uncomplicated; F15.20 Other stimulant dependence, uncomplicated; Z20.822 Contact with and (suspected) exposure to COVID-19; F17.200 Nicotine dependence, unspecified, uncomplicated; Z59.00 Homelessness unspecified; Z55.9 Problems related to education and literacy, unspecified; Z88.8 Allergy status to other drugs, medicaments and biological substances; Z63.9 Problem related to primary support group, unspecified; Z65.3 Problems related to other legal circumstances
CPT/HCPCS: 80053; 80061; 82962; 83036; 84439; 84443; 85025; 86592; 90686; 99285; G0480; Q9967

== ENCOUNTER 2023-03-13 01:18 | Inpatient (IN) | payer MEDICAID, OTHER ==
[~2023-03-13] VITALS: Ht 165.1 cm; Wt 56.2 kg
[~2023-03-13 01:18] MED LIST changes: +FLUO20CA36 PO; +MELA5TAB40 PO; -METF-446 PO; +NALT50TA PO; -OLAN10 PO; +OLAN10TA26 PO; -OLAN10TA74 PO; -OLAN5TAB52 PO; -OLAN5TAB77 PO; +OMEG-135 PO; -THIA100T80 PO
[2023-03-13] MEDS ORDERED: QUEtiapine FUMARATE 100 MG TABLET PO ONE (01:45)
[2023-03-13] MEDS ORDERED: OLANZapine 5 MG TABLET PO ONE (01:45)
[2023-03-13 01:50] LABS: BASOPHILS % (AUTO) 0.4 % (0.0-2.0); EOSINOPHILS % (AUTO) 1.4 % (1.0-6.0); HEMATOCRIT 34.1 % (41-53); HEMOGLOBIN 11.5 g/dL (13.5-17.5); LYMPHOCYTES # (AUTO) 1.4 K/uL (1.0-4.8); LYMPHOCYTES % (AUTO) 36.7 % (22.0-44.0); MEAN CORPUSCULAR HEMOGLOBIN 29.3 pg (26.0-34.0); MEAN CORPUSCULAR HGB CONC 33.7 G/dL (31.0-37.0); MEAN CORPUSCULAR VOLUME 87 fL (80-100); MONOCYTES # (AUTO) 0.6 K/uL (0.1-1.0); MONOCYTES % (AUTO) 14.8 % (2.0-9.0); NEUTROPHILS # (AUTO) 1.8 K/uL (1.8-7.7); NEUTROPHILS % (AUTO) 46.7 % (40.0-70.0); PLATELET COUNT (AUTO) 218 K/uL (150-450); RED BLOOD CELL COUNT(AUTO) 3.92 MIL/uL (4.50-5.90); RED CELL DISTRIBUTION WIDTH 14.6 % (11.5-14.5); WHITE BLOOD COUNT (AUTO) 3.8 K/uL (4.5-11.0)
[2023-03-13 01:59] LABS: ANION GAP 7 mmol/L (8-16); CARBON DIOXIDE 29 mmol/L (22-29); CHLORIDE 102 mmol/L (98-107); CREATININE 0.77 mg/dL (0.60-1.30); GLOMERULAR FILTR. RATE CALC > 60 mL/min (>60); GLUCOSE,RANDOM 95 mg/dL (70-110); POTASSIUM 3.6 mmol/L (3.5-5.1); SODIUM SERUM 138 mmol/L (136-145); UREA NITROGEN, BLOOD 21 mg/dL (7-18)
[2023-03-13 02:05] LABS: ALANINE AMINOTRANSFERASE 44 U/L (12-78); ALBUMIN 3.9 g/dL (3.4-5.0); ALKALINE PHOSPHATASE 89 U/L (46-116); ASPARTATE AMINOTRANSFERASE 36 U/L (15-37); BILIRUBIN,TOTAL 0.8 mg/dL (0.1-1.0); TOTAL PROTEIN, SERUM 8.1 g/dL (6.4-8.2)
[2023-03-13] MEDS ORDERED: OLANZapine 5 MG RAPDIS TABLET PO PRN (02:15)
[2023-03-13] MEDS ORDERED: ZOLPIDEM TARTRATE 10 MG TABLET PO PRN (02:15)
[2023-03-13] MEDS ORDERED: LORazepam 2 MG TABLET PO PRN (02:15)
[2023-03-13 02:28] LABS: ALCOHOL, BLOOD (SERUM) < 3 mg/dL (0-10)
[2023-03-13 03:35] LABS: COVID AG,FIA SOURCE NASAL SWAB
[2023-03-13 03:53] LABS: SARS-COV2 (COVID) ANTIGEN,FIA Negative (Negative)
[2023-03-13 11:37] LABS: APPEARANCE,URINE CLEAR (CLEAR); BILIRUBIN,URINE NEGATIVE (NEGATIVE); COLOR,URINE YELLOW (YELLOW); GLUCOSE, URINE (UA) NEGATIVE (NEGATIVE); LEUKOCYTE ESTERASE ,URINE NEGATIVE (NEGATIVE); NITRATE,URINE NEGATIVE (NEGATIVE); OCCULT BLOOD,URINE NEGATIVE (NEGATIVE); PH,URINE 5.5 (5.0-8.0); PROTEIN,URINE TRACE mg/dL (NEGATIVE)
[2023-03-13 11:38] LABS: PH,URINE DRUG SCREEN 5.5 (5.0-8.0)
[2023-03-13] MEDS ORDERED: ACETAMINOPHEN 325 MG TABLET PO PRN (11:45)
[2023-03-13] MEDS ORDERED: PROMETHAZINE HCL 25 MG TABLET PO PRN (11:45)
[2023-03-13] MEDS ORDERED: HydrOXYzine PAMOATE 50 MG CAPSULE PO PRN (11:45)
[2023-03-13] MEDS ORDERED: MAGNESIUM HYDROXIDE SUSPENSION 30 ML UDCUP PO PRN (11:45)
[2023-03-13] MEDS ORDERED: LOPERAMIDE HCL 2 MG CAPSULE PO PRN (11:45)
[2023-03-13] MEDS ORDERED: MAG HYDROX/ALUMINUM HYD/SIMETH ES 30 ML SUSPENSION UDCUP PO PRN (11:45)
[2023-03-13] MEDS ORDERED: GuaiFENesin/D-METHORPHAN [SUGAR-FREE] 200-20MG/10 ML SYRUP UDCUP PO PRN (11:45)
[2023-03-13 11:50] LABS: ALCOHOL, URINE DRUG SCREEN NEGATIVE (NEGATIVE); AMPHET/METH SCREEN,URINE POSITIVE (NEGATIVE); BARBITURATE SCREEN, URINE NEGATIVE (NEGATIVE); BENZODIAZEPINES SCREEN,URINE NEGATIVE (NEGATIVE); CANNABINOID SCREEN,URINE NEGATIVE (NEGATIVE); COCAINE SCREEN,URINE POSITIVE (NEGATIVE); METHADONE SCREEN, URINE NEGATIVE (NEGATIVE); OPIATE SCREEN,URINE NEGATIVE (NEGATIVE); PHENCYCLIDINE SCREEN,URINE NEGATIVE (NEGATIVE)
[2023-03-13 12:41] VITALS: BP 114/67; PULSE 84; RESP 18; TEMP 97.8; O2SAT 99
[2023-03-13] MEDS ORDERED: INFLUENZA VIRUS VACCINE QVS 2023-24 (6MO+)/PF 60 MCG/0.5 ML SYRINGE IM. ONE (14:00)
[2023-03-13] MEDS ORDERED: -PHARMACY VACCINE NOTE- MISC ONE (14:00)
[2023-03-13] MEDS: THIAMINE 100 MG TABLET PO SCH (17:30)
[2023-03-13] MEDS ORDERED: GLUCAGON,HUMAN RECOMBINANT 1 MG VIAL IM PRN (19:00)
[2023-03-13] MEDS ORDERED: INSULIN LISPRO 100 UNITS/ML SQ PRN (19:00)
[2023-03-13 20:23] VITALS: RESP 20; TEMP 98
[2023-03-13] MEDS: OLANZapine 7.5 MG TABLET PO SCH (20:52)
[2023-03-13] MEDS: MELATONIN 5 MG TABLET PO SCH (20:52)
[2023-03-14 06:26] LABS: GLUCOMETER DEV NAME(LOC) BV2S.; GLUCOSE,POINT OF CARE 121 MG/DL (70-110)
[2023-03-14] MEDS: MetFORMIN HCL 500 MG TABLET PO SCH ×2 (06:39→17:04)
[2023-03-14 08:32] VITALS: BP 105/59; PULSE 59; RESP 18; TEMP 97.6; O2SAT 96
[2023-03-14] MEDS: MULTIVITAMINS WITH MINERALS, THERAPEUTIC TABLET PO SCH (09:09)
[2023-03-14] MEDS: NALTREXONE HCL 50 MG TABLET PO SCH (09:09)
[2023-03-14] MEDS: THIAMINE 100 MG TABLET PO SCH ×2 (09:09→17:04)
[2023-03-14] MEDS: FOLIC ACID 1 MG TABLET PO SCH (09:09)
[2023-03-14] MEDS: OMEGA-3/DHA/EPA/FISH OIL 1,000 MG CAPSULE PO SCH (09:10)
[2023-03-14] MEDS: FLUoxetine HCL 20 MG CAPSULE PO SCH (09:10)
[2023-03-14 17:00] LABS: GLUCOMETER DEV NAME(LOC) BV2S.; GLUCOSE,POINT OF CARE 97 MG/DL (70-110)
[2023-03-14 20:29] VITALS: BP 108/66; PULSE 62; RESP 18; TEMP 97.6; O2SAT 97
[2023-03-14] MEDS: MELATONIN 5 MG TABLET PO SCH (21:02)
[2023-03-14] MEDS: OLANZapine 7.5 MG TABLET PO SCH (21:02)
[2023-03-15] MEDS: MetFORMIN HCL 500 MG TABLET PO SCH ×2 (06:31→17:02)
[2023-03-15 06:41] LABS: GLUCOMETER DEV NAME(LOC) BV2S.; GLUCOSE,POINT OF CARE 101 MG/DL (70-110)
[2023-03-15] MEDS: THIAMINE 100 MG TABLET PO SCH ×2 (08:20→17:02)
[2023-03-15] MEDS: FOLIC ACID 1 MG TABLET PO SCH (08:20)
[2023-03-15] MEDS: MULTIVITAMINS WITH MINERALS, THERAPEUTIC TABLET PO SCH (08:20)
[2023-03-15] MEDS: NALTREXONE HCL 50 MG TABLET PO SCH (08:20)
[2023-03-15] MEDS: FLUoxetine HCL 20 MG CAPSULE PO SCH (08:20)
[2023-03-15] MEDS: OMEGA-3/DHA/EPA/FISH OIL 1,000 MG CAPSULE PO SCH (08:20)
[2023-03-15 09:41] VITALS: BP 108/89; PULSE 73; RESP 17; TEMP 97.7; O2SAT 99
[2023-03-15 17:01] LABS: GLUCOMETER DEV NAME(LOC) BV2S.; GLUCOSE,POINT OF CARE 110 MG/DL (70-110)
[2023-03-15] MEDS: OLANZapine 10 MG TABLET PO SCH (20:10)
[2023-03-15] MEDS: MELATONIN 5 MG TABLET PO SCH (20:10)
[2023-03-15 20:38] VITALS: BP 119/79; PULSE 99; RESP 18; TEMP 97.9; O2SAT 98
[2023-03-16] MEDS: MetFORMIN HCL 500 MG TABLET PO SCH ×2 (06:39→16:43)
[2023-03-16 07:36] LABS: GLUCOMETER DEV NAME(LOC) BV2S.; GLUCOSE,POINT OF CARE 78 MG/DL (70-110)
[2023-03-16] MEDS: FOLIC ACID 1 MG TABLET PO SCH (08:50)
[2023-03-16] MEDS: THIAMINE 100 MG TABLET PO SCH ×2 (08:50→16:43)
[2023-03-16] MEDS: MULTIVITAMINS WITH MINERALS, THERAPEUTIC TABLET PO SCH (08:50)
[2023-03-16] MEDS: OMEGA-3/DHA/EPA/FISH OIL 1,000 MG CAPSULE PO SCH (08:50)
[2023-03-16] MEDS: NALTREXONE HCL 50 MG TABLET PO SCH (08:50)
[2023-03-16] MEDS ORDERED: FLUoxetine HCL 20 MG CAPSULE PO SCH (09:00)
[2023-03-16 09:10] VITALS: BP 119/75; PULSE 86; RESP 18; TEMP 97.9; O2SAT 98
[2023-03-16 16:36] LABS: GLUCOMETER DEV NAME(LOC) BV2S.; GLUCOSE,POINT OF CARE 129 MG/DL (70-110)
[2023-03-16] MEDS ORDERED: GABAPENTIN 300 MG CAPSULE PO PRN (17:00)
[2023-03-16] MEDS ORDERED: ESZOPICLONE 3 MG TABLET PO PRN (17:00)
[2023-03-16] MEDS: MELATONIN 5 MG TABLET PO SCH (20:19)
[2023-03-16] MEDS: OLANZapine 10 MG TABLET PO SCH (20:19)
[2023-03-16 23:30] VITALS: BP 116/75; PULSE 66; RESP 18; TEMP 97.5; O2SAT 99
[2023-03-17] MEDS: MetFORMIN HCL 500 MG TABLET PO SCH ×2 (06:45→17:21)
[2023-03-17 06:46] LABS: GLUCOMETER DEV NAME(LOC) BV2S.; GLUCOSE,POINT OF CARE 89 MG/DL (70-110)
[2023-03-17 08:44] VITALS: BP 116/69; PULSE 83; RESP 19; TEMP 97.4; O2SAT 100
[2023-03-17] MEDS: NALTREXONE HCL 50 MG TABLET PO SCH (09:24)
[2023-03-17] MEDS: OMEGA-3/DHA/EPA/FISH OIL 1,000 MG CAPSULE PO SCH (09:24)
[2023-03-17] MEDS: FLUoxetine HCL 20 MG CAPSULE PO SCH (09:25)
[2023-03-17] MEDS: THIAMINE 100 MG TABLET PO SCH ×2 (09:25→17:20)
[2023-03-17] MEDS: MULTIVITAMINS WITH MINERALS, THERAPEUTIC TABLET PO SCH (09:25)
[2023-03-17] MEDS: FOLIC ACID 1 MG TABLET PO SCH (09:25)
[2023-03-17 17:31] LABS: GLUCOMETER DEV NAME(LOC) BV2S.; GLUCOSE,POINT OF CARE 79 MG/DL (70-110)
[2023-03-17] MEDS: MELATONIN 5 MG TABLET PO SCH (20:34)
[2023-03-17] MEDS: OLANZapine 10 MG TABLET PO SCH (20:34)
[2023-03-17 20:43] VITALS: BP 110/68; PULSE 87; RESP 18; TEMP 98.2; O2SAT 99
[2023-03-18] MEDS: MetFORMIN HCL 500 MG TABLET PO SCH ×2 (06:52→16:30)
[2023-03-18 07:06] LABS: GLUCOMETER DEV NAME(LOC) BV2S.; GLUCOSE,POINT OF CARE 87 MG/DL (70-110)
[2023-03-18] MEDS: MULTIVITAMINS WITH MINERALS, THERAPEUTIC TABLET PO SCH (08:55)
[2023-03-18] MEDS: NALTREXONE HCL 50 MG TABLET PO SCH (08:55)
[2023-03-18] MEDS: FOLIC ACID 1 MG TABLET PO SCH (08:55)
[2023-03-18] MEDS: OMEGA-3/DHA/EPA/FISH OIL 1,000 MG CAPSULE PO SCH (08:55)
[2023-03-18] MEDS: THIAMINE 100 MG TABLET PO SCH ×2 (08:55→16:30)
[2023-03-18] MEDS: FLUoxetine HCL 20 MG CAPSULE PO SCH (08:55)
[2023-03-18 09:00] VITALS: BP 106/71; PULSE 77; RESP 17; TEMP 97.6; O2SAT 99
[2023-03-18 17:16] LABS: GLUCOMETER DEV NAME(LOC) BV2S.; GLUCOSE,POINT OF CARE 110 MG/DL (70-110)
[2023-03-18] MEDS: MELATONIN 5 MG TABLET PO SCH (20:11)
[2023-03-18] MEDS: OLANZapine 10 MG TABLET PO SCH (20:11)
[2023-03-18 20:23] VITALS: BP 131/72; PULSE 68; RESP 18; TEMP 98.5; O2SAT 99
[2023-03-19] MEDS: MetFORMIN HCL 500 MG TABLET PO SCH ×2 (05:59→16:55)
[2023-03-19 06:01] LABS: GLUCOMETER DEV NAME(LOC) BV2S.; GLUCOSE,POINT OF CARE 94 MG/DL (70-110)
[2023-03-19 08:41] VITALS: BP 109/59; PULSE 57; RESP 18; TEMP 98.2; O2SAT 99
[2023-03-19] MEDS: MULTIVITAMINS WITH MINERALS, THERAPEUTIC TABLET PO SCH (09:04)
[2023-03-19] MEDS: NALTREXONE HCL 50 MG TABLET PO SCH (09:04)
[2023-03-19] MEDS: FLUoxetine HCL 20 MG CAPSULE PO SCH (09:04)
[2023-03-19] MEDS: THIAMINE 100 MG TABLET PO SCH ×2 (09:04→16:55)
[2023-03-19] MEDS: OMEGA-3/DHA/EPA/FISH OIL 1,000 MG CAPSULE PO SCH (09:04)
[2023-03-19] MEDS: FOLIC ACID 1 MG TABLET PO SCH (09:04)
[2023-03-19 16:41] LABS: GLUCOMETER DEV NAME(LOC) BV2S.; GLUCOSE,POINT OF CARE 120 MG/DL (70-110)
[2023-03-19 20:26] VITALS: BP 102/69; PULSE 64; RESP 21; TEMP 97.8; O2SAT 98
[2023-03-19] MEDS: MELATONIN 5 MG TABLET PO SCH (21:51)
[2023-03-19] MEDS: OLANZapine 10 MG TABLET PO SCH (21:51)
[2023-03-20 06:36] LABS: GLUCOMETER DEV NAME(LOC) BV2S.; GLUCOSE,POINT OF CARE 90 MG/DL (70-110)
[2023-03-20] MEDS: MetFORMIN HCL 500 MG TABLET PO SCH ×2 (06:38→16:26)
[2023-03-20 08:47] VITALS: BP 119/58; PULSE 61; RESP 18; TEMP 97.8; O2SAT 100
[2023-03-20] MEDS: THIAMINE 100 MG TABLET PO SCH ×2 (09:07→16:27)
[2023-03-20] MEDS: NALTREXONE HCL 50 MG TABLET PO SCH (09:07)
[2023-03-20] MEDS: FOLIC ACID 1 MG TABLET PO SCH (09:07)
[2023-03-20] MEDS: FLUoxetine HCL 20 MG CAPSULE PO SCH (09:07)
[2023-03-20] MEDS: MULTIVITAMINS WITH MINERALS, THERAPEUTIC TABLET PO SCH (09:07)
[2023-03-20] MEDS: OMEGA-3/DHA/EPA/FISH OIL 1,000 MG CAPSULE PO SCH (09:07)
[2023-03-20 16:55] LABS: GLUCOMETER DEV NAME(LOC) BV2S.; GLUCOSE,POINT OF CARE 135 MG/DL (70-110)
[2023-03-20 16:55] LABS: GLUCOMETER DEV NAME(LOC) BV2S.; GLUCOSE,POINT OF CARE 113 MG/DL (70-110)
[2023-03-20 20:08] VITALS: BP 96/60; PULSE 69; RESP 18; TEMP 98; O2SAT 98
[2023-03-20] MEDS: OLANZapine 10 MG TABLET PO SCH (20:25)
[2023-03-20] MEDS: MELATONIN 5 MG TABLET PO SCH (20:26)
[2023-03-21 06:16] LABS: GLUCOMETER DEV NAME(LOC) BV2S.; GLUCOSE,POINT OF CARE 91 MG/DL (70-110)
[2023-03-21] MEDS: MetFORMIN HCL 500 MG TABLET PO SCH ×2 (06:41→16:21)
[2023-03-21 08:29] VITALS: BP 106/59; PULSE 61; RESP 18; TEMP 97.8; O2SAT 98
[2023-03-21] MEDS: OMEGA-3/DHA/EPA/FISH OIL 1,000 MG CAPSULE PO SCH (08:40)
[2023-03-21] MEDS: MULTIVITAMINS WITH MINERALS, THERAPEUTIC TABLET PO SCH (08:40)
[2023-03-21] MEDS: FLUoxetine HCL 20 MG CAPSULE PO SCH (08:40)
[2023-03-21] MEDS: NALTREXONE HCL 50 MG TABLET PO SCH (08:40)
[2023-03-21] MEDS: THIAMINE 100 MG TABLET PO SCH ×2 (08:40→16:21)
[2023-03-21] MEDS: FOLIC ACID 1 MG TABLET PO SCH (08:40)
[2023-03-21 16:42] LABS: GLUCOMETER DEV NAME(LOC) BV2S.; GLUCOSE,POINT OF CARE 125 MG/DL (70-110)
[2023-03-21] MEDS: OLANZapine 10 MG TABLET PO SCH (20:07)
[2023-03-21] MEDS: MELATONIN 5 MG TABLET PO SCH (20:07)
[2023-03-21 21:55] VITALS: BP 106/62; PULSE 83; RESP 18; TEMP 98; O2SAT 100
[2023-03-22] MEDS: MetFORMIN HCL 500 MG TABLET PO SCH (06:31)
[2023-03-22 06:41] LABS: GLUCOMETER DEV NAME(LOC) BV2S.; GLUCOSE,POINT OF CARE 95 MG/DL (70-110)
[2023-03-22] MEDS ORDERED: OMEG-135 PO (08:23)
[2023-03-22] MEDS ORDERED: FLUO20CA36 PO (08:23)
[2023-03-22] MEDS ORDERED: OLAN10TA74 PO (08:23)
[2023-03-22] MEDS ORDERED: MELA5TAB40 PO (08:23)
[2023-03-22] MEDS ORDERED: NALT50TA33 PO (08:23)
[2023-03-22] MEDS: OMEGA-3/DHA/EPA/FISH OIL 1,000 MG CAPSULE PO SCH (08:28)
[2023-03-22] MEDS: FOLIC ACID 1 MG TABLET PO SCH (08:28)
[2023-03-22] MEDS: MULTIVITAMINS WITH MINERALS, THERAPEUTIC TABLET PO SCH (08:28)
[2023-03-22] MEDS: THIAMINE 100 MG TABLET PO SCH (08:28)
[2023-03-22] MEDS: FLUoxetine HCL 20 MG CAPSULE PO SCH (08:28)
[2023-03-22] MEDS: NALTREXONE HCL 50 MG TABLET PO SCH (08:29)
[2023-03-22] MEDS ORDERED: METF-1211 PO ×2 (08:45→09:22)
[2023-03-22 08:47] VITALS: BP 114/59; PULSE 76; RESP 17; TEMP 97.9; O2SAT 100
== END 2023-03-22 11:00 | disposition home or self-care (01) | DRG 750 ==
LOC: EMS 01:19 → B2S 10:19
PROVIDERS: ADMIT Psychiatry & Neurology Psychiatry; ATTEND Psychiatry & Neurology Psychiatry
PROC: GZHZZZZ Group Psychotherapy (ICD-10-PCS; principal; 2023-03-13)
DX: F25.0 Schizoaffective disorder, bipolar type (principal); R45.851 Suicidal ideations; E11.9 Type 2 diabetes mellitus without complications; E78.00 Pure hypercholesterolemia, unspecified; D64.9 Anemia, unspecified; D72.819 Decreased white blood cell count, unspecified; F17.200 Nicotine dependence, unspecified, uncomplicated; Z91.148 Patient's other noncompliance with medication regimen for other reason; Z20.822 Contact with and (suspected) exposure to COVID-19; F41.9 Anxiety disorder, unspecified; I10 Essential (primary) hypertension; Z74.01 Bed confinement status; Z88.8 Allergy status to other drugs, medicaments and biological substances
CPT/HCPCS: 80053; 80307; 81003; 82962; 85025; 87081; 99285; G0480; Q9967

== ENCOUNTER 2023-09-07 18:27 | Emergency (ER) | payer MEDICAID, OTHER ==
[~2023-09-07] VITALS: Ht 165.1 cm; Wt 61.4 kg
[~2023-09-07 18:27] MED LIST changes: +FLUO-418 PO; -FLUO20CA36 PO; +METF-1211 PO; -NALT50TA PO; +NALT50TA33 PO; -OLAN10TA26 PO; +OLAN10TA74 PO
[2023-09-07 22:03] VITALS: TEMP 97.8
[2023-09-07 22:24] LABS: COVID AG,FIA SOURCE NASAL SWAB
[2023-09-07 22:36] LABS: SARS-COV2 (COVID) ANTIGEN,FIA Negative (Negative)
[2023-09-07 23:08] LABS: ANION GAP 12 mmol/L (8-16); CALCIUM, TOTAL 9.4 mg/dL (8.8-10.5); CARBON DIOXIDE 27 mmol/L (22-29); CHLORIDE 101 mmol/L (98-107); CREATININE 1.05 mg/dL (0.60-1.30); GLOMERULAR FILTR. RATE CALC > 60 mL/min (>60); GLUCOSE,RANDOM 91 mg/dL (70-110); POTASSIUM 3.6 mmol/L (3.5-5.1); SODIUM SERUM 140 mmol/L (136-145); UREA NITROGEN, BLOOD 32 mg/dL (7-18)
[2023-09-07 23:13] LABS: BASOPHILS % (AUTO) 0.4 % (0.0-2.0); EOSINOPHILS % (AUTO) 1.6 % (1.0-6.0); HEMATOCRIT 39.1 % (41-53); LYMPHOCYTES # (AUTO) 2.3 K/uL (1.0-4.8); LYMPHOCYTES % (AUTO) 59.8 % (22.0-44.0); MEAN CORPUSCULAR HEMOGLOBIN 29.5 pg (26.0-34.0); MEAN CORPUSCULAR HGB CONC 33.3 G/dL (31.0-37.0); MEAN CORPUSCULAR VOLUME 89 fL (80-100); MONOCYTES # (AUTO) 0.2 K/uL (0.1-1.0); MONOCYTES % (AUTO) 6.3 % (2.0-9.0); NEUTROPHILS # (AUTO) 1.2 K/uL (1.8-7.7); NEUTROPHILS % (AUTO) 31.9 % (40.0-70.0); PLATELET COUNT (AUTO) 190 K/uL (150-450); RED BLOOD CELL COUNT(AUTO) 4.41 MIL/uL (4.50-5.90); RED CELL DISTRIBUTION WIDTH 13.7 % (11.5-14.5); WHITE BLOOD COUNT (AUTO) 3.9 K/uL (4.5-11.0)
[2023-09-07] MEDS: LORazepam 1 MG TABLET PO ONE (23:19)
[2023-09-07] MEDS: OLANZapine 5 MG TABLET PO ONE (23:19)
[2023-09-07 23:25] LABS: ALCOHOL, BLOOD (SERUM) < 3 mg/dL (0-10)
[2023-09-08 04:07] VITALS: BP 106/57; PULSE 68; RESP 18
== END 2023-09-08 05:47 | disposition home or self-care (01) ==
LOC: EMS 18:31
DX: F20.9 Schizophrenia, unspecified (principal); F41.9 Anxiety disorder, unspecified; F31.9 Bipolar disorder, unspecified; E11.9 Type 2 diabetes mellitus without complications; E78.00 Pure hypercholesterolemia, unspecified; I10 Essential (primary) hypertension; F17.210 Nicotine dependence, cigarettes, uncomplicated; F14.90 Cocaine use, unspecified, uncomplicated; F12.90 Cannabis use, unspecified, uncomplicated; F15.90 Other stimulant use, unspecified, uncomplicated; Z59.00 Homelessness unspecified; Z98.890 Other specified postprocedural states; Z88.8 Allergy status to other drugs, medicaments and biological substances; Z20.822 Contact with and (suspected) exposure to COVID-19
CPT/HCPCS: 99284; 87426; 80048; 85025; 36415; G0480

== ENCOUNTER 2023-11-17 19:59 | Inpatient (IN) | payer MEDICAID, OTHER ==
[~2023-11-17] VITALS: Ht 162.6 cm; Wt 57.1 kg
[2023-11-17 21:09] LABS: BASOPHILS % (AUTO) 0.3 % (0.0-2.0); EOSINOPHILS % (AUTO) 2.4 % (1.0-6.0); HEMATOCRIT 39.4 % (41-53); HEMOGLOBIN 13.1 g/dL (13.5-17.5); LYMPHOCYTES # (AUTO) 2.1 K/uL (1.0-4.8); LYMPHOCYTES % (AUTO) 58.7 % (22.0-44.0); MEAN CORPUSCULAR HEMOGLOBIN 29.4 pg (26.0-34.0); MEAN CORPUSCULAR HGB CONC 33.1 G/dL (31.0-37.0); MEAN CORPUSCULAR VOLUME 89 fL (80-100); MONOCYTES # (AUTO) 0.2 K/uL (0.1-1.0); MONOCYTES % (AUTO) 6.8 % (2.0-9.0); NEUTROPHILS # (AUTO) 1.1 K/uL (1.8-7.7); NEUTROPHILS % (AUTO) 31.8 % (40.0-70.0); PLATELET COUNT (AUTO) 217 K/uL (150-450); RED BLOOD CELL COUNT(AUTO) 4.44 MIL/uL (4.50-5.90); RED CELL DISTRIBUTION WIDTH 13.7 % (11.5-14.5); WHITE BLOOD COUNT (AUTO) 3.6 K/uL (4.5-11.0)
[2023-11-17 21:11] LABS: ALCOHOL, URINE DRUG SCREEN NEGATIVE (NEGATIVE); AMPHET/METH SCREEN,URINE POSITIVE (NEGATIVE); BARBITURATE SCREEN, URINE NEGATIVE (NEGATIVE); BENZODIAZEPINES SCREEN,URINE NEGATIVE (NEGATIVE); CANNABINOID SCREEN,URINE NEGATIVE (NEGATIVE); COCAINE SCREEN,URINE NEGATIVE (NEGATIVE); METHADONE SCREEN, URINE NEGATIVE (NEGATIVE); OPIATE SCREEN,URINE NEGATIVE (NEGATIVE); PHENCYCLIDINE SCREEN,URINE NEGATIVE (NEGATIVE)
[2023-11-17 21:17] LABS: ANION GAP 12 mmol/L (8-16); CALCIUM, TOTAL 8.1 mg/dL (8.8-10.5); CARBON DIOXIDE 29 mmol/L (22-29); CHLORIDE 104 mmol/L (98-107); CREATININE 0.94 mg/dL (0.60-1.30); GLOMERULAR FILTR. RATE CALC > 60 mL/min (>60); GLUCOSE,RANDOM 86 mg/dL (70-110); POTASSIUM 3.2 mmol/L (3.5-5.1); SODIUM SERUM 145 mmol/L (136-145); UREA NITROGEN, BLOOD 12 mg/dL (7-18)
[2023-11-17 21:29] LABS: ALCOHOL, BLOOD (SERUM) < 3 mg/dL (0-10)
[2023-11-17] MEDS: POTASSIUM CHLORIDE 20 MEQ ER TABLET PO ONE (22:31)
[2023-11-17] MEDS: OLANZapine 10 MG TABLET PO ONE (22:31)
[2023-11-17] MEDS: DiphenhydrAMINE HCL 25 MG CAPSULE PO ONE (22:31)
[2023-11-17] MEDS: LORazepam 1 MG TABLET PO ONE (22:32)
[2023-11-17 23:26] LABS: COVID AG,FIA SOURCE NASAL SWAB
[2023-11-17 23:39] LABS: SARS-COV2 (COVID) ANTIGEN,FIA Negative (Negative)
[2023-11-18 02:39] VITALS: BP 116/68; PULSE 69; RESP 18; TEMP 97.6; O2SAT 100
[2023-11-18] MEDS ORDERED: ONDANSETRON HCL 4 MG TABLET PO PRN (08:00)
[2023-11-18] MEDS ORDERED: GuaiFENesin/D-METHORPHAN [SUGAR-FREE] 200-20MG/10 ML SYRUP UDCUP PO PRN (08:00)
[2023-11-18] MEDS ORDERED: MAG HYDROX/ALUMINUM HYD/SIMETH ES 30 ML SUSPENSION UDCUP PO PRN (08:00)
[2023-11-18] MEDS ORDERED: PETROLATUM,WHITE 28 GM JELLY TP PRN (08:00)
[2023-11-18] MEDS ORDERED: ALBUTEROL SULFATE HFA 90 MCG/PUFF 8 GM INHALER IH PRN (08:00)
[2023-11-18] MEDS ORDERED: LOPERAMIDE HCL 2 MG CAPSULE PO PRN (08:00)
[2023-11-18] MEDS ORDERED: CloNIDine HCL 0.1 MG TABLET PO PRN (08:00)
[2023-11-18] MEDS ORDERED: MAGNESIUM HYDROXIDE SUSPENSION 30 ML UDCUP PO PRN (08:00)
[2023-11-18] MEDS ORDERED: IBUPROFEN 400 MG TABLET PO PRN (08:00)
[2023-11-18] MEDS ORDERED: DOCUSATE SODIUM 100 MG CAPSULE PO PRN (08:00)
[2023-11-18] MEDS ORDERED: NICOTINE 14 MG/24 HOUR PATCH TD PRN (08:00)
[2023-11-18] MEDS ORDERED: ACETAMINOPHEN 325 MG TABLET PO PRN (08:00)
[2023-11-18 08:48] VITALS: RESP 18
[2023-11-18 18:01] LABS: GLUCOMETER DEV NAME(LOC) 3EX.2; GLUCOSE,POINT OF CARE 94 MG/DL (70-110)
[2023-11-18 20:13] VITALS: BP 114/74; PULSE 64; RESP 18; TEMP 97.6; O2SAT 98
[2023-11-18 21:10] LABS: GLUCOMETER DEV NAME(LOC) 3EX.2; GLUCOSE,POINT OF CARE 119 MG/DL (70-110)
[2023-11-18] MEDS: INSULIN LISPRO 100 UNITS/ML SQ PRN (21:25)
[2023-11-18] MEDS: OLANZapine 10 MG TABLET PO SCH (21:25)
[2023-11-19 07:05] LABS: GLUCOMETER DEV NAME(LOC) 3E.I 2; GLUCOSE,POINT OF CARE 87 MG/DL (70-110)
[2023-11-19] MEDS ORDERED: FLUoxetine HCL 20 MG CAPSULE PO SCH (09:00)
[2023-11-19] MEDS: NALTREXONE HCL 50 MG TABLET PO SCH (09:01)
[2023-11-19] MEDS: FLUoxetine HCL 20 MG CAPSULE PO SCH (09:02)
[2023-11-19 11:00] LABS: BASOPHILS % (AUTO) 0.3 % (0.0-2.0); EOSINOPHILS % (AUTO) 1.7 % (1.0-6.0); HEMATOCRIT 35.6 % (41-53); HEMOGLOBIN 11.7 g/dL (13.5-17.5); LYMPHOCYTES # (AUTO) 1.2 K/uL (1.0-4.8); LYMPHOCYTES % (AUTO) 44.6 % (22.0-44.0); MEAN CORPUSCULAR HGB CONC 32.8 G/dL (31.0-37.0); MEAN CORPUSCULAR VOLUME 88 fL (80-100); MONOCYTES # (AUTO) 0.2 K/uL (0.1-1.0); MONOCYTES % (AUTO) 6.8 % (2.0-9.0); NEUTROPHILS # (AUTO) 1.3 K/uL (1.8-7.7); NEUTROPHILS % (AUTO) 46.6 % (40.0-70.0); PLATELET COUNT (AUTO) 189 K/uL (150-450); RED BLOOD CELL COUNT(AUTO) 4.03 MIL/uL (4.50-5.90); RED CELL DISTRIBUTION WIDTH 13.6 % (11.5-14.5); WHITE BLOOD COUNT (AUTO) 2.7 K/uL (4.5-11.0)
[2023-11-19 11:23] LABS: HEMOGLOBIN A1C 5.8 % (3.8-5.6)
[2023-11-19 11:46] LABS: ALANINE AMINOTRANSFERASE 27 U/L (12-78); ALKALINE PHOSPHATASE 58 U/L (46-116); ANION GAP 7 mmol/L (8-16); ASPARTATE AMINOTRANSFERASE 20 U/L (15-37); BILIRUBIN,TOTAL 0.3 mg/dL (0.1-1.0); CALCIUM, TOTAL 8.4 mg/dL (8.8-10.5); CARBON DIOXIDE 27 mmol/L (22-29); CHLORIDE 105 mmol/L (98-107); CREATININE 0.79 mg/dL (0.60-1.30); GLOMERULAR FILTR. RATE CALC > 60 mL/min (>60); GLUCOSE,RANDOM 87 mg/dL (70-110); POTASSIUM 3.9 mmol/L (3.5-5.1); SODIUM SERUM 139 mmol/L (136-145); THYROID STIMULATING HORMONE 0.42 uIU/mL (0.36-3.74); TOTAL PROTEIN, SERUM 6.5 g/dL (6.4-8.2); UREA NITROGEN, BLOOD 12 mg/dL (7-18)
[2023-11-19 11:56] LABS: GLUCOMETER DEV NAME(LOC) 3EX.2; GLUCOSE,POINT OF CARE 100 MG/DL (70-110)
[2023-11-19 12:23] VITALS: RESP 18
[2023-11-19 17:15] LABS: GLUCOMETER DEV NAME(LOC) 3EX.2; GLUCOSE,POINT OF CARE 103 MG/DL (70-110)
[2023-11-19 20:51] VITALS: RESP 18
[2023-11-19 21:20] LABS: GLUCOMETER DEV NAME(LOC) 3E.I 2; GLUCOSE,POINT OF CARE 145 MG/DL (70-110)
[2023-11-20 06:50] LABS: GLUCOMETER DEV NAME(LOC) 3E.I 2; GLUCOSE,POINT OF CARE 95 MG/DL (70-110)
[2023-11-20 09:38] VITALS: BP 113/64; PULSE 70; RESP 18; TEMP 97.5; O2SAT 100
[2023-11-20 13:06] LABS: GLUCOMETER DEV NAME(LOC) 3E.I 2; GLUCOSE,POINT OF CARE 166 MG/DL (70-110)
[2023-11-20 17:06] LABS: GLUCOMETER DEV NAME(LOC) 3E.I 2; GLUCOSE,POINT OF CARE 89 MG/DL (70-110)
[2023-11-20] MEDS: MetFORMIN HCL 500 MG TABLET PO SCH (17:48)
[2023-11-20 17:51] LABS: GLUCOMETER DEV NAME(LOC) 3E.I 2; GLUCOSE,POINT OF CARE 124 MG/DL (70-110)
[2023-11-20 20:26] VITALS: BP 120/80; PULSE 77; RESP 18; TEMP 98.2; O2SAT 99
[2023-11-20 21:40] LABS: GLUCOMETER DEV NAME(LOC) 3E.I 2; GLUCOSE,POINT OF CARE 147 MG/DL (70-110)
[2023-11-21 06:15] LABS: GLUCOMETER DEV NAME(LOC) 3E.I 2; GLUCOSE,POINT OF CARE 98 MG/DL (70-110)
[2023-11-21 08:34] LABS: CHOL/HDL RATIO 2.5 (4.2-7.3)
[2023-11-21 10:03] VITALS: BP 105/67; PULSE 86; RESP 18; TEMP 97.4; O2SAT 99
[2023-11-21 11:31] LABS: GLUCOMETER DEV NAME(LOC) 3E.I 2; GLUCOSE,POINT OF CARE 114 MG/DL (70-110)
[2023-11-21 17:40] LABS: GLUCOMETER DEV NAME(LOC) 3E.I 2; GLUCOSE,POINT OF CARE 136 MG/DL (70-110)
[2023-11-21 20:57] VITALS: BP 102/61; PULSE 75; RESP 18; TEMP 98.4; O2SAT 99
[2023-11-21 21:30] LABS: GLUCOMETER DEV NAME(LOC) 3E.I 2; GLUCOSE,POINT OF CARE 97 MG/DL (70-110)
[2023-11-22 06:31] LABS: GLUCOMETER DEV NAME(LOC) 3E.I 2; GLUCOSE,POINT OF CARE 108 MG/DL (70-110)
[2023-11-22] MEDS: FLUoxetine HCL 20 MG CAPSULE PO SCH (09:08)
[2023-11-22 11:30] LABS: GLUCOMETER DEV NAME(LOC) 3E.I 2; GLUCOSE,POINT OF CARE 97 MG/DL (70-110)
[2023-11-22 12:29] VITALS: BP 127/74; PULSE 69; RESP 17; TEMP 98.2; O2SAT 99
[2023-11-22 16:26] LABS: GLUCOMETER DEV NAME(LOC) 3E.I 2; GLUCOSE,POINT OF CARE 91 MG/DL (70-110)
[2023-11-22 20:20] LABS: GLUCOMETER DEV NAME(LOC) 3E.I 2; GLUCOSE,POINT OF CARE 106 MG/DL (70-110)
[2023-11-22 20:27] VITALS: BP 124/78; PULSE 79; RESP 18; TEMP 97.5; O2SAT 98
[2023-11-23 06:30] LABS: GLUCOMETER DEV NAME(LOC) 3E.I 2; GLUCOSE,POINT OF CARE 110 MG/DL (70-110)
[2023-11-23 11:03] VITALS: BP_SYST 81; PULSE 75; RESP 17; TEMP 98.1; O2SAT 98
[2023-11-23 11:35] LABS: GLUCOMETER DEV NAME(LOC) 3E.I 2; GLUCOSE,POINT OF CARE 116 MG/DL (70-110)
[2023-11-23 16:16] LABS: GLUCOMETER DEV NAME(LOC) 3E.I 2; GLUCOSE,POINT OF CARE 148 MG/DL (70-110)
[2023-11-23 21:06] LABS: GLUCOMETER DEV NAME(LOC) 3E.I 2; GLUCOSE,POINT OF CARE 131 MG/DL (70-110)
[2023-11-23 21:58] VITALS: RESP 18
[2023-11-24 06:26] LABS: GLUCOMETER DEV NAME(LOC) 3E.I 2; GLUCOSE,POINT OF CARE 95 MG/DL (70-110)
[2023-11-24 08:30] VITALS: BP 96/60; PULSE 72; RESP 17; TEMP 98.6; O2SAT 98
[2023-11-24] MEDS: ARIPiprazole ER SUSPENSION 400 MG PRE-FILLED DUAL CHAMBER SYRINGE IM SCH (09:51)
[2023-11-24 11:41] LABS: GLUCOMETER DEV NAME(LOC) 3E.I 2; GLUCOSE,POINT OF CARE 122 MG/DL (70-110)
[2023-11-24 16:41] LABS: GLUCOMETER DEV NAME(LOC) 3E.I 2; GLUCOSE,POINT OF CARE 130 MG/DL (70-110)
[2023-11-24 20:54] VITALS: BP 117/62; PULSE 85; RESP 19; TEMP 98.3; O2SAT 98
[2023-11-24 21:16] LABS: GLUCOMETER DEV NAME(LOC) 3E.I 2; GLUCOSE,POINT OF CARE 109 MG/DL (70-110)
[2023-11-25 06:20] LABS: GLUCOMETER DEV NAME(LOC) 3E.I 2; GLUCOSE,POINT OF CARE 110 MG/DL (70-110)
[2023-11-25 10:00] VITALS: BP 137/77; PULSE 86; RESP 17; TEMP 97.9; O2SAT 98
[2023-11-25 11:31] LABS: GLUCOMETER DEV NAME(LOC) 3E.I 2; GLUCOSE,POINT OF CARE 131 MG/DL (70-110)
[2023-11-25 16:36] LABS: GLUCOMETER DEV NAME(LOC) 3E.I 2; GLUCOSE,POINT OF CARE 170 MG/DL (70-110)
[2023-11-25 20:20] LABS: GLUCOMETER DEV NAME(LOC) 3E.I 2; GLUCOSE,POINT OF CARE 82 MG/DL (70-110)
[2023-11-25 22:02] VITALS: BP 110/68; PULSE 50; RESP 18; TEMP 97.7; O2SAT 100
[2023-11-26 05:40] LABS: GLUCOMETER DEV NAME(LOC) 3E.I 2; GLUCOSE,POINT OF CARE 134 MG/DL (70-110)
[2023-11-26 09:59] VITALS: BP 110/60; PULSE 72; RESP 18; TEMP 98.3; O2SAT 99
[2023-11-26 11:46] LABS: GLUCOMETER DEV NAME(LOC) 3E.I 2; GLUCOSE,POINT OF CARE 142 MG/DL (70-110)
[2023-11-26 18:01] LABS: GLUCOMETER DEV NAME(LOC) 3E.I 2; GLUCOSE,POINT OF CARE 137 MG/DL (70-110)
[2023-11-26 20:20] LABS: GLUCOMETER DEV NAME(LOC) 3E.I 2; GLUCOSE,POINT OF CARE 148 MG/DL (70-110)
[2023-11-26 20:41] VITALS: BP 116/70; PULSE 74; RESP 18; TEMP 97.9; O2SAT 99
[2023-11-27 05:51] LABS: GLUCOMETER DEV NAME(LOC) 3E.I 2; GLUCOSE,POINT OF CARE 111 MG/DL (70-110)
[2023-11-27 11:45] LABS: GLUCOMETER DEV NAME(LOC) 3E.I 2; GLUCOSE,POINT OF CARE 126 MG/DL (70-110)
[2023-11-27 13:13] VITALS: BP 112/64; PULSE 70; RESP 19; TEMP 98; O2SAT 98
[2023-11-27 17:40] LABS: GLUCOMETER DEV NAME(LOC) 3E.I 2; GLUCOSE,POINT OF CARE 126 MG/DL (70-110)
[2023-11-27 20:45] LABS: GLUCOMETER DEV NAME(LOC) 3E.I 2; GLUCOSE,POINT OF CARE 144 MG/DL (70-110)
[2023-11-27 22:07] VITALS: BP 131/69; PULSE 94; RESP 18; TEMP 98.2; O2SAT 99
[2023-11-28 05:50] LABS: GLUCOMETER DEV NAME(LOC) 3E.I 2; GLUCOSE,POINT OF CARE 119 MG/DL (70-110)
[2023-11-28 09:54] VITALS: BP 107/59; PULSE 75; RESP 19; TEMP 97.6; O2SAT 98
[2023-11-28 12:21] LABS: GLUCOMETER DEV NAME(LOC) 3E.I 2; GLUCOSE,POINT OF CARE 140 MG/DL (70-110)
[2023-11-28] MEDS ORDERED: METF-1211 PO (17:08)
[2023-11-28 18:11] LABS: GLUCOMETER DEV NAME(LOC) 3E.I 2; GLUCOSE,POINT OF CARE 148 MG/DL (70-110)
[2023-11-28 20:15] VITALS: BP 110/65; PULSE 72; RESP 16; TEMP 97.8; O2SAT 99
[2023-11-28 21:16] LABS: GLUCOMETER DEV NAME(LOC) 3E.I 2; GLUCOSE,POINT OF CARE 122 MG/DL (70-110)
[2023-11-29 06:06] LABS: GLUCOMETER DEV NAME(LOC) 3E.I 2; GLUCOSE,POINT OF CARE 116 MG/DL (70-110)
[2023-11-29] MEDS ORDERED: ARIP400S3 IM (09:22)
[2023-11-29] MEDS ORDERED: OLAN10TA74 PO (09:22)
[2023-11-29] MEDS ORDERED: FLUO-418 PO (09:22)
[2023-11-29] MEDS ORDERED: NALT50TA33 PO (09:22)
[2023-11-29 09:30] VITALS: BP 141/80; PULSE 69; RESP 18; TEMP 98.2; O2SAT 99
== END 2023-11-29 11:45 | disposition home or self-care (01) | DRG 750 ==
LOC: EMS 19:59 → 3EI 11-18 03:20
PROVIDERS: ADMIT Psychiatry & Neurology Child & Adolescent Psychiatry; ATTEND Psychiatry & Neurology Child & Adolescent Psychiatry
PROC: GZ56ZZZ Individual Psychotherapy, Supportive (ICD-10-PCS; principal; 2023-11-18)
DX: F25.1 Schizoaffective disorder, depressive type (principal); D64.9 Anemia, unspecified; E11.9 Type 2 diabetes mellitus without complications; E87.6 Hypokalemia; F15.10 Other stimulant abuse, uncomplicated; E78.00 Pure hypercholesterolemia, unspecified; Z20.822 Contact with and (suspected) exposure to COVID-19; F32.A Depression, unspecified; I10 Essential (primary) hypertension; Z87.891 Personal history of nicotine dependence
CPT/HCPCS: 80048; 80053; 80061; 80307; 82962; 83036; 84132; 84443; 85025; 87081; 99285; G0480; J0401